=== PATIENT | female | born 1940 | race Caucasian/White ===

== ENCOUNTER → 2017-10-24 10:50 | Outpatient (CLI) | payer MEDICARE, OTHER, SELFPAY ==
--- NOTE | 2017-10-24 14:40 | VDLE_ITS ---
Reason For Study: LEG SWELLING RIGHT LEFT GSV is normal. GSV is normal. CFV is compressible, spontaneous, phasic, CFV is compressible, spontaneous, phasic, competent and demonstrates normal competent, and demonstrates normal augmentation. augmentation. FV is compressible, spontaneous, phasic, FV is compressible, spontaneous, phasic, competent and demonstrates normal competent and demonstrates normal augmentation. augmentation. POP V is compressible, spontaneous, phasic, POP V is compressible, spontaneous, phasic, competent and demonstrates normal competent and demonstrates normal augmentation. augmentation. T/P Trunk is compressible. T/P Trunk is compressible. PTV is compressible. PTV is compressible. RT PerV is compressible. LT PerV is compressible. Procedure Exam performed in department. A preliminary report was called and/or faxed to Dr. Kaba. Interpretation Summary Deep veins of the lower extremities are bilaterally patent and compressible segmentally. There is no evidence of deep vein thrombosis on either side. Valvular competence appears intact within the proximal deep venous systems bilaterally. The greater saphenous veins appear bilaterally patent and compressible segmentally. Ordering Physician: Adebayo Kaba Referring Physician: Adebayo Kaba Chi Performed By: Lilliana Stoo RVT
[2017-10-24 15:47] LABS: Absolute Lymphocyte Count 1.79 X10^3/ul (0.83-4.51); Absolute Neutrophil Count 4.4 X10^3/uL (2.0-7.7); Basophil# 0.01 X10^3/uL; Basophil% 0.1 % (0-1); Eosinophil# 0.16 X10^3/uL; Eosinophils% 2.4 % (0-5); Hematocrit 40.9 % (37-47); Hemoglobin 13.3 g/dl (12.0-15.0); Lymphocyte # 1.79 X10^3/ul (4.0); Lymphocyte % 26.6 % (19-41); Mean Corp Hgb Conc 32.5 g/gl (32-36); Mean Corpuscular Hgb 28.2 pg (27.0-32.0); Mean Corpuscular Volume 86.8 fL (81-99); Mean Platelet Vol. 9.3 fl (6.2-12.0); Monocyte# 0.38 X10^3/uL; Monocyte% 5.6 % (0-10); Neutrophil % 65.3 % (47-70); Platelet Count 260 K/mm3 (150-450); RBC Distribution Width CV 13.8 % (11.6-14.6); RBC Distribution Width SD 43.8 fl (35.1-43.9); Red Blood Count 4.71 M/mm3 (4.2-5.4); White Blood Count 6.7 K/mm3 (4.4-11.0)
[2017-10-24 15:49] LABS: POSITIVE COUNT NO; POSITIVE DIFFERENTIAL NO; POSITIVE MORPHOLOGY NO
[2017-10-24 16:19] LABS: Vitamin D,25 Hydroxy 33.4 ng/mL (29.95-100.01)
[2017-10-24 16:29] LABS: ALB/GLOB Ratio 0.9 RATIO (0.9-2.4); AST(SGOT) 24 U/L (15-37); Alanine Aminotransfer ALT/SGPT 29 U/L (13-56); Albumin, Serum 3.4 g/dL (3.2-5.0); Alkaline Phosphatase 130 U/L (45-117); Anion Gap 5 (5-15); BUN 19 mg/dL (7-18); BUN/Creat Ratio 24.5 RATIO (10-20); Chloride 106 mmol/L (98-107); Creatinine, Serum 0.78 mg/dL (0.55-1.02); EST Glomerular Filtration Rate 77 mL/min (>60); Est Glom Filt Rate - Afr Amer 93 mL/min (>60); Globulin 3.7 g/dL (2.2-4.2); Glucose 92 mg/dL (74-106); Potassium 4.5 mmol/L (3.5-5.1); Protein, Total 7.1 g/dL (6.4-8.2); Sodium Level 141 mmol/L (136-145); Thyroid Stim Hormone (TSH) 1.52 uIU/mL (0.358-3.74)
== END ==
PROVIDERS: Family Provider Family Medicine Geriatric Medicine; PCP Family Medicine Geriatric Medicine; Visit Provider Family Medicine Geriatric Medicine
DX: I10 Essential (primary) hypertension (principal); R60.0 Localized edema; E55.9 Vitamin D deficiency, unspecified
CPT/HCPCS: 36415; 80053; 82306; 84443; 85025; 93970

== ENCOUNTER → 2018-04-29 13:08 | Outpatient (CLI) | payer MEDICARE, OTHER, SELFPAY ==
[2018-04-29 14:32] LABS: Absolute Lymphocyte Count 1.65 X10^3/ul (0.83-4.51); Absolute Neutrophil Count 3.4 X10^3/uL (2.0-7.7); Basophil# 0.01 X10^3/uL; Basophil% 0.2 % (0-1); Eosinophil# 0.28 X10^3/uL; Eosinophils% 4.7 % (0-5); Hematocrit 39.6 % (37-47); Hemoglobin 12.7 g/dl (12.0-15.0); Lymphocyte # 1.65 X10^3/ul (4.0); Mean Corp Hgb Conc 32.1 g/gl (32-36); Mean Corpuscular Hgb 28.2 pg (27.0-32.0); Mean Platelet Vol. 9.2 fl (6.2-12.0); Monocyte# 0.57 X10^3/uL; Monocyte% 9.7 % (0-10); Neutrophil # 3.38 X10^3/uL (2.7-7.7); Neutrophil % 57.2 % (47-70); Platelet Count 245 K/mm3 (150-450); RBC Distribution Width CV 13.9 % (11.6-14.6); RBC Distribution Width SD 44.9 fl (35.1-43.9); White Blood Count 5.9 K/mm3 (4.4-11.0)
[2018-04-29 14:37] LABS: POSITIVE COUNT NO; POSITIVE DIFFERENTIAL NO; POSITIVE MORPHOLOGY NO
[2018-04-29 14:47] LABS: Vitamin D,25 Hydroxy 27.9 ng/mL (29.95-100.01)
[2018-04-29 14:50] LABS: ALB/GLOB Ratio 0.8 RATIO (0.9-2.4); AST(SGOT) 21 U/L (15-37); Alanine Aminotransfer ALT/SGPT 23 U/L (13-56); Albumin, Serum 3.3 g/dL (3.2-5.0); Alkaline Phosphatase 142 U/L (45-117); Anion Gap 5 (5-15); BUN 17 mg/dL (7-18); BUN/Creat Ratio 22.8 RATIO (10-20); Calcium,Total 9.2 mg/dL (8.5-10.1); Chloride 103 mmol/L (98-107); Creatinine, Serum 0.74 mg/dL (0.55-1.02); EST Glomerular Filtration Rate 81 mL/min (>60); Est Glom Filt Rate - Afr Amer 97 mL/min (>60); Glucose 88 mg/dL (74-106); Potassium 4.2 mmol/L (3.5-5.1); Protein, Total 7.3 g/dL (6.4-8.2); Sodium Level 138 mmol/L (136-145); Thyroid Stim Hormone (TSH) 2.52 uIU/mL (0.358-3.74)
== END ==
PROVIDERS: Family Provider Family Medicine Geriatric Medicine; PCP Family Medicine Geriatric Medicine; Visit Provider Family Medicine Geriatric Medicine
DX: I10 Essential (primary) hypertension (principal); E55.9 Vitamin D deficiency, unspecified
CPT/HCPCS: 36415; 80053; 82306; 84443; 85025

== ENCOUNTER → 2018-05-02 14:11 | Outpatient (CLI) | payer MEDICARE, OTHER, SELFPAY ==
--- NOTE | 2018-05-02 14:15 | CT_ITS ---
STUDY: CT CHEST WITH CONTRAST REASON FOR EXAM: Female, 77 years old. History of a lung cancer and prior resection. RADIATION DOSAGE (If Supplied By Facility): CTDIvol = ( 13.91 ) mGy, DLP = ( 485.67 ) mGycm TECHNIQUE: Transaxial imaging was performed following intravenous administration of 100 ml of Isovue 370 contrast material. Multiplanar coronal and sagittal images were reformatted. Individualized dose optimization techniques were used for this CT. COMPARISON: Comparison is made with prior study dated April 20, 2014. FINDINGS: Small bilateral axillary lymph nodes. There is elevation of the right hemidiaphragm with mild loss in the right hemithorax most likely secondary to prior resection. Emphysematous changes are seen in both upper lobes. Mild increased markings seen at the lung bases most likely secondary to mild scarring. The previously seen lobulated mass in the posterior right upper lobe has been resected. There is no demonstrated pleural abnormality. There are calcifications of the coronary arteries. Normal mediastinum. Normal hilar regions. Normal enhanced pulmonary arteries. Normal aorta arch and descending thoracic aorta. There are degenerative changes of the thoracic spine. 1.6 cm cyst in the lateral midportion of the left kidney. CT/Chest WITH Contrast IMPRESSION: Status post right upper lobectomy with resection of the right pulmonary nodule. Emphysematous changes. Mild basilar scarring. Electronically Signed: Izaiah Bush MD at 14:36 EST Tel [phone], Service support ,
== END ==
PROVIDERS: Family Provider Family Medicine Geriatric Medicine; PCP Family Medicine Geriatric Medicine; Referring Provider Family Medicine Geriatric Medicine; Visit Provider Family Medicine Geriatric Medicine
DX: R22.2 Localized swelling, mass and lump, trunk (principal)
CPT/HCPCS: 71260; Q9967

== ENCOUNTER → 2018-10-29 | Outpatient (CLI) | payer MEDICARE, OTHER, SELFPAY ==
[2017-07-21 13:04] VITALS: BMI 32.1
[2018-10-29 17:29] LABS: Absolute Lymphocyte Count 1.39 X10^3/ul (0.83-4.51); Absolute Neutrophil Count 3.9 X10^3/uL (2.0-7.7); Basophil# 0.01 X10^3/uL; Basophil% 0.2 % (0-1); Eosinophil# 0.17 X10^3/uL; Eosinophils% 2.8 % (0-5); Hematocrit 38.9 % (37-47); Hemoglobin 12.7 g/dl (12.0-15.0); Lymphocyte # 1.39 X10^3/ul (4.0); Mean Corp Hgb Conc 32.6 g/gl (32-36); Mean Corpuscular Hgb 28.3 pg (27.0-32.0); Mean Corpuscular Volume 86.8 fL (81-99); Mean Platelet Vol. 9.7 fl (6.2-12.0); Monocyte# 0.56 X10^3/uL; Monocyte% 9.3 % (0-10); Neutrophil # 3.91 X10^3/uL (2.7-7.7); Neutrophil % 64.7 % (47-70); Platelet Count 242 K/mm3 (150-450); RBC Distribution Width CV 13.8 % (11.6-14.6); Red Blood Count 4.48 M/mm3 (4.2-5.4)
[2018-10-29 17:31] LABS: POSITIVE COUNT NO; POSITIVE DIFFERENTIAL NO; POSITIVE MORPHOLOGY NO
[2018-10-29 17:54] LABS: Vitamin D,25 Hydroxy 22.8 ng/mL (29.95-100.01)
[2018-10-29 18:31] LABS: ALB/GLOB Ratio 0.9 RATIO (0.9-2.4); AST(SGOT) 24 U/L (15-37); Alanine Aminotransfer ALT/SGPT 28 U/L (13-56); Albumin, Serum 3.3 g/dL (3.2-5.0); Alkaline Phosphatase 124 U/L (45-117); Anion Gap 6 (5-15); BUN 16 mg/dL (7-18); BUN/Creat Ratio 21.5 RATIO (10-20); Calcium,Total 8.6 mg/dL (8.5-10.1); Chloride 105 mmol/L (98-107); Creatinine, Serum 0.74 mg/dL (0.55-1.02); EST Glomerular Filtration Rate 80 mL/min (>60); Est Glom Filt Rate - Afr Amer 97 mL/min (>60); Globulin 3.6 g/dL (2.2-4.2); Glucose 89 mg/dL (74-106); Potassium 4.1 mmol/L (3.5-5.1); Protein, Total 6.9 g/dL (6.4-8.2); Sodium Level 140 mmol/L (136-145); Thyroid Stim Hormone (TSH) 1.93 uIU/mL (0.358-3.74)
== END | disposition home or self-care (01) ==
LOC: POLAB3 15:04
PROVIDERS: Family Provider Family Medicine Geriatric Medicine; PCP Family Medicine Geriatric Medicine; Visit Provider Family Medicine Geriatric Medicine
DX: I10 Essential (primary) hypertension (principal); E55.9 Vitamin D deficiency, unspecified
CPT/HCPCS: 36415; 80053; 82306; 84443; 85025

== ENCOUNTER → 2019-05-05 | Outpatient (CLI) | payer MEDICARE, OTHER, SELFPAY ==
[2017-07-21 13:04] VITALS: BMI 32.1
--- NOTE | 2019-05-05 15:22 | RAD_ITS ---
STUDY: X-RAY - LUMBAR SPINE REASON FOR EXAM: Female, 78 years old. Low back pain. TECHNIQUE: 2 view(s) of the lumbar spine were obtained. COMPARISON: None FINDINGS: There is a slightly exaggerated lumbar lordosis. There is mild kyphosis at thoracolumbar junction. There is scoliosis of thoracolumbar spine, convexity to the right. There is a normal alignment of the vertebrae. There is diffuse demineralization with multi-level endplate spondylosis. There is multi-level degenerative disc disease with multi-level disc space narrowing. There is severe compression fracture of T12. There is mild compression fracture of L3 and L4. There is multilevel bilateral facet hypertrophy. There is atherosclerotic calcification of the abdominal aorta without a demonstrated aneurysm. RAD/Lumbar Spine 2 or 3 Views IMPRESSION: Diffuse osteopenia along with multilevel spondylosis/degenerative disease. Several compression fractures as described above. Electronically Signed: Colleen Martin MD at 2:27 EST , Service support ,
== END | disposition home or self-care (01) ==
LOC: RAD 15:17
PROVIDERS: Family Provider Family Medicine Geriatric Medicine; PCP Family Medicine Geriatric Medicine; Referring Provider Anesthesiology Pain Medicine; Visit Provider Anesthesiology Pain Medicine
DX: M54.5 Low back pain (principal)
CPT/HCPCS: 72100

== ENCOUNTER → 2019-05-08 | Outpatient (CLI) | payer MEDICARE, OTHER, SELFPAY ==
[2017-07-21 13:04] VITALS: BMI 32.1
[2019-05-08 12:37] LABS: ALB/GLOB Ratio 0.8 RATIO (0.9-2.4); AST(SGOT) 18 U/L (15-37); Alanine Aminotransfer ALT/SGPT 22 U/L (13-56); Albumin, Serum 3.2 g/dL (3.2-5.0); Alkaline Phosphatase 138 U/L (45-117); Anion Gap 6 (5-15); BUN 12 mg/dL (7-18); BUN/Creat Ratio 15.3 RATIO (10-20); Calcium,Total 8.8 mg/dL (8.5-10.1); Chloride 105 mmol/L (98-107); Creatinine, Serum 0.78 mg/dL (0.55-1.02); EST Glomerular Filtration Rate 76 mL/min (>60); Est Glom Filt Rate - Afr Amer 92 mL/min (>60); Globulin 4.1 g/dL (2.2-4.2); Glucose 106 mg/dL (74-106); Potassium 3.9 mmol/L (3.5-5.1); Protein, Total 7.3 g/dL (6.4-8.2); Sodium Level 142 mmol/L (136-145); Thyroid Stim Hormone (TSH) 2.31 uIU/mL (0.358-3.74)
[2019-05-08 12:39] LABS: Absolute Lymphocyte Count 1.54 X10^3/uL (0.83-4.51); Absolute Neutrophil Count 4.3 X10^3/uL (2.0-7.7); Basophil# 0.04 X10^3/uL; Basophil% 0.6 % (0-1); Eosinophil# 0.47 X10^3/uL; Eosinophils% 6.8 % (0-5); Hematocrit 40.9 % (37-47); Hemoglobin 13.3 g/dL (12.0-15.0); Lymphocyte # 1.54 X10^3/ul (4.0); Lymphocyte % 22.3 % (19-41); Mean Corp Hgb Conc 32.5 g/dL (32-36); Mean Corpuscular Hgb 28.8 pg (27.0-32.0); Mean Corpuscular Volume 88.5 fL (81-99); Mean Platelet Vol. 9.3 fl (6.2-12.0); Monocyte# 0.51 X10^3/uL; Monocyte% 7.4 % (0-10); NRBC Flagged by Analyzer 0 % (0-5); Neutrophil # 4.32 X10^3/uL (2.7-7.7); Neutrophil % 62.6 % (47-70); Platelet Count 275 K/mm3 (150-450); RBC Distribution Width CV 13.3 % (11.6-14.6); RBC Distribution Width SD 43.5 fl (35.1-43.9); Red Blood Count 4.62 M/mm3 (4.2-5.4); Vitamin D,25 Hydroxy 37.5 ng/mL (29.95-100.01); White Blood Count 6.9 K/mm3 (4.4-11.0)
== END | disposition home or self-care (01) ==
LOC: POLAB3 11:27
PROVIDERS: Family Provider Family Medicine Geriatric Medicine; PCP Family Medicine Geriatric Medicine; Visit Provider Family Medicine Geriatric Medicine
DX: E55.9 Vitamin D deficiency, unspecified (principal); I10 Essential (primary) hypertension
CPT/HCPCS: 36415; 80053; 82306; 84443; 85025

== ENCOUNTER 2019-08-20 10:00 | Outpatient (RCR) | payer MEDICARE, OTHER, SELFPAY ==
[2019-08-13 09:38] VITALS: BP 107/40; PULSE 78; RESP 22; TEMP 36.8; BMI 31.4
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
[2019-08-20 10:21] VITALS: BP 117/47; PULSE 61; RESP 16; TEMP 37.2; BMI 31.4
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
== END 2019-08-23 23:59 ==
LOC: WC 10:00
PROVIDERS: PCP Family Medicine Geriatric Medicine; Referring Provider Nurse Practitioner; Visit Provider Nurse Practitioner
DX: T81.31XA Disruption of external operation (surgical) wound, not elsewhere classified, initial encounter (principal); Y83.8 Other surgical procedures as the cause of abnormal reaction of the patient, or of later complication, without mention of misadventure at the time of the procedure; R60.0 Localized edema; L03.116 Cellulitis of left lower limb; I25.2 Old myocardial infarction; Z85.118 Personal history of other malignant neoplasm of bronchus and lung; I10 Essential (primary) hypertension; E78.5 Hyperlipidemia, unspecified; Z79.899 Other long term (current) drug therapy; Z87.891 Personal history of nicotine dependence
CPT/HCPCS: 11042; 11045; 87070; 87075; 87077; 87186; 87205; 99213; G0463

== ENCOUNTER 2019-09-19 11:00 | Outpatient (RCR) | payer MEDICARE, OTHER, SELFPAY ==
[2019-08-24 01:09] VITALS: BP 117/47; PULSE 61; RESP 16; TEMP 37.2
[2019-08-27 10:33] VITALS: BP 131/70; PULSE 77; RESP 16; TEMP 37.4; BMI 31.4
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
[2019-09-03 10:59] VITALS: BP 136/90; PULSE 88; RESP 16; TEMP 36.7; BMI 31.4
[2019-09-10 09:36] VITALS: BP 168/64; PULSE 64; RESP 18; TEMP 36.9; BMI 31.4
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
[2019-09-12 09:22] VITALS: BP 135/59; PULSE 66; RESP 16; TEMP 37.1; BMI 31.4
[2019-09-17 10:45] VITALS: BP 137/53; PULSE 68; RESP 18; TEMP 36.8; BMI 31.4
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
[2019-09-19 11:15] VITALS: BP 105/57; PULSE 91; RESP 16; TEMP 37; BMI 31.4
== END 2019-09-23 23:59 ==
LOC: WC 11:00
PROVIDERS: PCP Family Medicine Geriatric Medicine; Referring Provider Nurse Practitioner; Visit Provider Nurse Practitioner
DX: T81.31XA Disruption of external operation (surgical) wound, not elsewhere classified, initial encounter (principal); S81.812A Laceration without foreign body, left lower leg, initial encounter; Y83.8 Other surgical procedures as the cause of abnormal reaction of the patient, or of later complication, without mention of misadventure at the time of the procedure; R60.0 Localized edema; L08.9 Local infection of the skin and subcutaneous tissue, unspecified; W22.8XXA Striking against or struck by other objects, initial encounter; L03.116 Cellulitis of left lower limb
CPT/HCPCS: 11042; 11045; 17250; 87070; 87075; 87205; 97607

== ENCOUNTER 2019-10-22 12:00 | Outpatient (RCR) | payer MEDICARE, OTHER, SELFPAY ==
[2019-09-24 00:52] VITALS: BP 105/57; PULSE 91; RESP 16; TEMP 37
[2019-10-01 11:06] VITALS: BP 140/71; PULSE 80; RESP 20; TEMP 36.6; BMI 31.4
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
[2019-10-03 11:58] VITALS: BP 125/72; PULSE 85; RESP 18; TEMP 35.7; BMI 31.4
[2019-10-08 11:51] VITALS: BP 135/61; PULSE 70; RESP 20; TEMP 36.7; O2SAT 91; BMI 31.4
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
[2019-10-10 11:23] VITALS: BP 115/51; PULSE 60; RESP 18; TEMP 36.8; BMI 31.4
[2019-10-15 12:21] VITALS: BP 134/41; PULSE 78; RESP 20; TEMP 36.4; BMI 31.4
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
[2019-10-22 12:08] VITALS: BMI 31.4
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
== END 2019-10-23 23:59 ==
LOC: WC 12:00
PROVIDERS: PCP Family Medicine Geriatric Medicine; Referring Provider Nurse Practitioner; Visit Provider Nurse Practitioner
DX: T81.31XA Disruption of external operation (surgical) wound, not elsewhere classified, initial encounter (principal); Y83.8 Other surgical procedures as the cause of abnormal reaction of the patient, or of later complication, without mention of misadventure at the time of the procedure; L03.116 Cellulitis of left lower limb; R60.0 Localized edema; S81.812A Laceration without foreign body, left lower leg, initial encounter; W22.8XXA Striking against or struck by other objects, initial encounter; Z79.899 Other long term (current) drug therapy
CPT/HCPCS: 11042; 11045; 17250; 97605; 97607; 99212; G0463

== ENCOUNTER → 2019-11-06 15:04 | Outpatient (CLI) | payer MEDICARE, OTHER, SELFPAY ==
[2019-11-05 10:16] VITALS: BMI 31.4
[2019-11-06 16:30] LABS: Absolute Neutrophil Count 4.1 X10^3/uL (2.0-7.7); Basophil# 0.03 X10^3/uL; Basophil% 0.5 % (0-1); Eosinophil# 0.19 X10^3/uL; Eosinophils% 2.9 % (0-5); Hematocrit 40.7 % (37-47); Hemoglobin 12.8 g/dL (12.0-15.0); Lymphocyte % 24.4 % (19-41); Mean Corp Hgb Conc 31.4 g/dL (32-36); Mean Corpuscular Hgb 28.2 pg (27.0-32.0); Mean Corpuscular Volume 89.6 fL (81-99); Mean Platelet Vol. 9.2 fl (6.2-12.0); Monocyte# 0.58 X10^3/uL; Monocyte% 8.9 % (0-10); NRBC Flagged by Analyzer 0 % (0-5); Neutrophil # 4.13 X10^3/uL (2.7-7.7); Platelet Count 261 K/mm3 (150-450); RBC Distribution Width CV 14.4 % (11.6-14.6); Red Blood Count 4.54 M/mm3 (4.2-5.4); White Blood Count 6.6 K/mm3 (4.4-11.0)
[2019-11-06 16:37] LABS: Vitamin D,25 Hydroxy 34.9 ng/mL
[2019-11-06 16:42] LABS: ALB/GLOB Ratio 0.9 RATIO (0.9-2.4); AST(SGOT) 19 U/L (15-37); Alanine Aminotransfer ALT/SGPT 22 U/L (13-56); Albumin, Serum 3.3 g/dL (3.2-5.0); Alkaline Phosphatase 117 U/L (45-117); Anion Gap 4 (5-15); BUN 14 mg/dL (7-18); BUN/Creat Ratio 17.8 RATIO (10-20); Chloride 107 mmol/L (98-107); Creatinine, Serum 0.79 mg/dL (0.55-1.02); EST Glomerular Filtration Rate 75 mL/min (>60); Est Glom Filt Rate - Afr Amer 91 mL/min (>60); Globulin 3.5 g/dL (2.2-4.2); Glucose 116 mg/dL (74-106); Potassium 3.9 mmol/L (3.5-5.1); Protein, Total 6.8 g/dL (6.4-8.2); Sodium Level 142 mmol/L (136-145); Thyroid Stim Hormone (TSH) 1.03 uIU/mL (0.358-3.74)
== END ==
PROVIDERS: PCP Family Medicine Geriatric Medicine; Visit Provider Family Medicine Geriatric Medicine
DX: E55.9 Vitamin D deficiency, unspecified (principal); I10 Essential (primary) hypertension
CPT/HCPCS: 36415; 80053; 82306; 84443; 85025

== ENCOUNTER 2019-11-12 09:00 | Outpatient (RCR) | payer MEDICARE, OTHER, SELFPAY ==
[2019-10-24 00:16] VITALS: BP 134/41; PULSE 78; RESP 20; TEMP 36.4; O2SAT 91
[2019-10-29 09:47] VITALS: BP 155/56; PULSE 80; RESP 18; TEMP 36.6; BMI 31.4
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
[2019-11-05 10:16] VITALS: BP 137/47; PULSE 70; RESP 18; TEMP 36.6; BMI 31.4
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
[2019-11-12 09:05] VITALS: BP 162/59; PULSE 76; RESP 16; TEMP 36.8; BMI 31.4
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
== END 2019-11-23 23:59 ==
LOC: WC 09:00
PROVIDERS: PCP Family Medicine Geriatric Medicine; Referring Provider Nurse Practitioner; Visit Provider Nurse Practitioner
DX: T81.31XA Disruption of external operation (surgical) wound, not elsewhere classified, initial encounter (principal); Y83.8 Other surgical procedures as the cause of abnormal reaction of the patient, or of later complication, without mention of misadventure at the time of the procedure; I89.0 Lymphedema, not elsewhere classified; L03.116 Cellulitis of left lower limb; R60.0 Localized edema; S81.812A Laceration without foreign body, left lower leg, initial encounter; W22.8XXA Striking against or struck by other objects, initial encounter; I99.9 Unspecified disorder of circulatory system; Z79.899 Other long term (current) drug therapy
CPT/HCPCS: 11042; 99213; G0463

== ENCOUNTER → 2019-11-25 15:26 | Outpatient (CLI) | payer MEDICARE, OTHER, SELFPAY ==
[2019-11-12 09:05] VITALS: BMI 31.4
== END ==
PROVIDERS: PCP Family Medicine Geriatric Medicine; Visit Provider Family Medicine Geriatric Medicine
DX: N39.0 Urinary tract infection, site not specified (principal)
CPT/HCPCS: 87086; 87088; 87186

== ENCOUNTER → 2020-05-10 14:16 | Outpatient (CLI) | payer MEDICARE, OTHER, SELFPAY ==
[2020-05-10 17:09] LABS: Absolute Lymphocyte Count 1.29 X10^3/uL (0.83-4.51); Absolute Neutrophil Count 4.8 X10^3/uL (2.0-7.7); Basophil# 0.03 X10^3/uL; Basophil% 0.4 % (0-1); Eosinophil# 0.16 X10^3/uL; Eosinophils% 2.4 % (0-5); Hemoglobin 13.4 g/dL (12.0-15.0); Lymphocyte # 1.29 X10^3/ul (4.0); Lymphocyte % 19.1 % (19-41); Mean Corp Hgb Conc 31.2 g/dL (32-36); Mean Corpuscular Hgb 27.9 pg (27.0-32.0); Mean Corpuscular Volume 89.4 fL (81-99); Mean Platelet Vol. 9.6 fl (6.2-12.0); Monocyte% 7.4 % (0-10); NRBC Flagged by Analyzer 0 % (0-5); Neutrophil # 4.76 X10^3/uL (2.7-7.7); Neutrophil % 70.6 % (47-70); Platelet Count 344 K/mm3 (150-450); RBC Distribution Width CV 13.3 % (11.6-14.6); RBC Distribution Width SD 43.8 fl (35.1-43.9); Red Blood Count 4.81 M/mm3 (4.2-5.4); White Blood Count 6.8 K/mm3 (4.4-11.0)
[2020-05-10 17:37] LABS: ALB/GLOB Ratio 0.8 RATIO (0.9-2.4); AST(SGOT) 18 U/L (15-37); Alanine Aminotransfer ALT/SGPT 23 U/L (13-56); Albumin, Serum 3.2 g/dL (3.2-5.0); Alkaline Phosphatase 161 U/L (45-117); Anion Gap 6 (5-15); BUN 11 mg/dL (7-18); BUN/Creat Ratio 14.6 RATIO (10-20); Chloride 104 mmol/L (98-107); Creatinine, Serum 0.75 mg/dL (0.55-1.02); EST Glomerular Filtration Rate 79 mL/min (>60); Est Glom Filt Rate - Afr Amer 96 mL/min (>60); Glucose 84 mg/dL (74-106); Protein, Total 7.2 g/dL (6.4-8.2); Sodium Level 140 mmol/L (136-145); Thyroid Stim Hormone (TSH) 1.42 uIU/mL (0.358-3.74)
== END ==
PROVIDERS: PCP Family Medicine Geriatric Medicine; Visit Provider Family Medicine Geriatric Medicine
DX: E55.9 Vitamin D deficiency, unspecified (principal); I10 Essential (primary) hypertension
CPT/HCPCS: 36415; 80053; 82306; 84443; 85025

== ENCOUNTER → 2020-08-02 15:25 | Outpatient (CLI) | payer MEDICARE, OTHER, SELFPAY | PROVIDERS: PCP Family Medicine Geriatric Medicine; Visit Provider Family Medicine Geriatric Medicine | DX: N39.0 Urinary tract infection, site not specified (principal) | CPT/HCPCS: 87077; 87086; 87088; 87186 ==

== ENCOUNTER → 2020-08-12 16:17 | Outpatient (CLI) | payer MEDICARE, OTHER, SELFPAY ==
[2020-08-12 17:51] LABS: Absolute Lymphocyte Count 1.56 X10^3/uL (0.83-4.51); Absolute Neutrophil Count 4.4 X10^3/uL (2.0-7.7); Basophil# 0.02 X10^3/uL; Basophil% 0.3 % (0-1); Eosinophil# 0.21 X10^3/uL; Eosinophils% 3.1 % (0-5); Hematocrit 35.4 % (37-47); Hemoglobin 10.9 g/dL (12.0-15.0); Lymphocyte # 1.56 X10^3/ul (4.0); Lymphocyte % 23.3 % (19-41); Mean Corp Hgb Conc 30.8 g/dL (32-36); Mean Corpuscular Hgb 27.7 pg (27.0-32.0); Mean Corpuscular Volume 89.8 fL (81-99); Mean Platelet Vol. 9.2 fl (6.2-12.0); Monocyte# 0.53 X10^3/uL; Monocyte% 7.9 % (0-10); NRBC Flagged by Analyzer 0 % (0-5); Neutrophil # 4.35 X10^3/uL (2.7-7.7); Neutrophil % 65.1 % (47-70); Platelet Count 206 K/mm3 (150-450); RBC Distribution Width CV 14.5 % (11.6-14.6); RBC Distribution Width SD 47.7 fl (35.1-43.9); Red Blood Count 3.94 M/mm3 (4.2-5.4); White Blood Count 6.7 K/mm3 (4.4-11.0)
[2020-08-12 18:22] LABS: ALB/GLOB Ratio 0.8 RATIO (0.9-2.4); AST(SGOT) 21 U/L (15-37); Alanine Aminotransfer ALT/SGPT 19 U/L (13-56); Albumin, Serum 2.6 g/dL (3.2-5.0); Alkaline Phosphatase 126 U/L (45-117); Anion Gap 4 (5-15); BUN 11 mg/dL (7-18); BUN/Creat Ratio 16.9 RATIO (10-20); Calcium,Total 7.8 mg/dL (8.5-10.1); Chloride 111 mmol/L (98-107); Creatinine, Serum 0.65 mg/dL (0.55-1.02); EST Glomerular Filtration Rate 93 mL/min (>60); Est Glom Filt Rate - Afr Amer 113 mL/min (>60); Globulin 3.1 g/dL (2.2-4.2); Glucose 110 mg/dL (74-106); Potassium 4.5 mmol/L (3.5-5.1); Protein, Total 5.7 g/dL (6.4-8.2); Sodium Level 145 mmol/L (136-145)
== END ==
PROVIDERS: PCP Family Medicine Geriatric Medicine; Visit Provider Family Medicine Geriatric Medicine
DX: R82.998 Other abnormal findings in urine (principal)
CPT/HCPCS: 36415; 80053; 85025; 87077; 87086; 87088; 87186

== ENCOUNTER → 2020-11-08 13:25 | Outpatient (CLI) | payer MEDICARE, OTHER, SELFPAY ==
[2020-11-08 16:46] LABS: Absolute Lymphocyte Count 1.47 X10^3/uL (0.83-4.51); Absolute Neutrophil Count 4.5 X10^3/uL (2.0-7.7); Basophil# 0.02 X10^3/uL; Basophil% 0.3 % (0-1); Eosinophil# 0.13 X10^3/uL; Eosinophils% 1.9 % (0-5); Hematocrit 39.9 % (37-47); Hemoglobin 12.8 g/dL (12.0-15.0); Lymphocyte # 1.47 X10^3/ul (0.83-4.51); Lymphocyte % 21.9 % (19-41); Mean Corp Hgb Conc 32.1 g/dL (32-36); Mean Corpuscular Hgb 27.5 pg (27.0-32.0); Mean Corpuscular Volume 85.6 fL (81-99); Mean Platelet Vol. 9.7 fl (6.2-12.0); Monocyte# 0.55 X10^3/uL; Monocyte% 8.2 % (0-10); NRBC Flagged by Analyzer 0 % (0-5); Neutrophil # 4.51 X10^3/uL (2.7-7.7); Neutrophil % 67.3 % (47-70); Platelet Count 247 K/mm3 (150-450); RBC Distribution Width CV 14.4 % (11.6-14.6); RBC Distribution Width SD 44.6 fl (35.1-43.9); Red Blood Count 4.66 M/mm3 (4.2-5.4); White Blood Count 6.7 K/mm3 (4.4-11.0)
[2020-11-08 17:18] LABS: ALB/GLOB Ratio 0.9 RATIO (0.9-2.4); AST(SGOT) 31 U/L (15-37); Alanine Aminotransfer ALT/SGPT 29 U/L (13-56); Albumin, Serum 3.2 g/dL (3.2-5.0); Alkaline Phosphatase 144 U/L (45-117); Anion Gap 4 (5-15); BUN 9 mg/dL (7-18); BUN/Creat Ratio 12.4 RATIO (10-20); Calcium,Total 8.4 mg/dL (8.5-10.1); Chloride 109 mmol/L (98-107); Creatinine, Serum 0.72 mg/dL (0.55-1.02); EST Glomerular Filtration Rate 83 mL/min (>60); Est Glom Filt Rate - Afr Amer 100 mL/min (>60); Globulin 3.5 g/dL (2.2-4.2); Glucose 89 mg/dL (74-106); Potassium 3.6 mmol/L (3.5-5.1); Protein, Total 6.7 g/dL (6.4-8.2); Sodium Level 142 mmol/L (136-145); Thyroid Stim Hormone (TSH) 1.83 uIU/mL (0.358-3.74)
== END ==
PROVIDERS: PCP Family Medicine Geriatric Medicine; Visit Provider Family Medicine Geriatric Medicine
DX: I10 Essential (primary) hypertension (principal); E55.9 Vitamin D deficiency, unspecified
CPT/HCPCS: 36415; 80053; 82306; 84443; 85025

== ENCOUNTER → 2021-04-01 13:17 | Outpatient (CLI) | payer MEDICARE, OTHER, SELFPAY | PROVIDERS: PCP Family Medicine Geriatric Medicine; Referring Provider Family Medicine Geriatric Medicine; Visit Provider Family Medicine Geriatric Medicine | DX: N39.0 Urinary tract infection, site not specified (principal) | CPT/HCPCS: 87077; 87086; 87088; 87186 ==

== ENCOUNTER → 2021-05-11 14:14 | Outpatient (CLI) | payer MEDICARE, OTHER, SELFPAY ==
[2021-05-11 17:14] LABS: Absolute Lymphocyte Count 1.57 X10^3/uL (0.83-4.51); Absolute Neutrophil Count 3.6 X10^3/uL (2.0-7.7); Basophil# 0.03 X10^3/uL; Basophil% 0.5 % (0-1); Eosinophil# 0.28 X10^3/uL; Eosinophils% 4.6 % (0-5); Hematocrit 41.8 % (37-47); Hemoglobin 13.2 g/dL (12.0-15.0); Lymphocyte # 1.57 X10^3/ul (0.83-4.51); Mean Corp Hgb Conc 31.6 g/dL (32-36); Mean Corpuscular Volume 88.6 fL (81-99); Mean Platelet Vol. 9.4 fl (6.2-12.0); Monocyte# 0.53 X10^3/uL; Monocyte% 8.8 % (0-10); NRBC Flagged by Analyzer 0 % (0-5); Neutrophil % 59.8 % (47-70); Platelet Count 306 K/mm3 (150-450); RBC Distribution Width SD 45.2 fl (35.1-43.9); Red Blood Count 4.72 M/mm3 (4.2-5.4)
[2021-05-11 17:56] LABS: ALB/GLOB Ratio 0.7 RATIO (0.9-2.4); AST(SGOT) 16 U/L (15-37); Alanine Aminotransfer ALT/SGPT 20 U/L (13-56); Albumin, Serum 2.9 g/dL (3.2-5.0); Alkaline Phosphatase 129 U/L (45-117); Anion Gap 2 (5-15); BUN 13 mg/dL (7-18); BUN/Creat Ratio 17.6 RATIO (10-20); Chloride 107 mmol/L (98-107); Creatinine, Serum 0.74 mg/dL (0.55-1.02); EST Glomerular Filtration Rate 81 mL/min (>60); Est Glom Filt Rate - Afr Amer 98 mL/min (>60); Globulin 4.3 g/dL (2.2-4.2); Glucose 73 mg/dL (74-106); Potassium 4.1 mmol/L (3.5-5.1); Protein, Total 7.2 g/dL (6.4-8.2); Sodium Level 141 mmol/L (136-145)
[2021-05-11 18:12] LABS: Vitamin D,25 Hydroxy 28.9 ng/mL
== END ==
PROVIDERS: PCP Family Medicine Geriatric Medicine; Visit Provider Family Medicine Geriatric Medicine
DX: E55.9 Vitamin D deficiency, unspecified (principal); I10 Essential (primary) hypertension
CPT/HCPCS: 36415; 80053; 82306; 84443; 85025

== ENCOUNTER → 2021-11-09 | Outpatient (CLI) | payer MEDICARE, OTHER, SELFPAY ==
[2021-11-09 17:18] LABS: Absolute Lymphocyte Count 1.57 X10^3/uL (0.83-4.51); Absolute Neutrophil Count 7.3 X10^3/uL (2.0-7.7); Basophil# 0.02 X10^3/uL; Basophil% 0.2 % (0-1); Eosinophil# 0.22 X10^3/uL; Eosinophils% 2.2 % (0-5); Hematocrit 43.2 % (37-47); Hemoglobin 13.8 g/dL (12.0-15.0); Lymphocyte # 1.57 X10^3/ul (0.83-4.51); Lymphocyte % 15.8 % (19-41); Mean Corp Hgb Conc 31.9 g/dL (32-36); Mean Corpuscular Hgb 28.5 pg (27.0-32.0); Mean Corpuscular Volume 89.1 fL (81-99); Monocyte# 0.75 X10^3/uL; Monocyte% 7.6 % (0-10); NRBC Flagged by Analyzer 0 % (0-5); Neutrophil # 7.32 X10^3/uL (2.7-7.7); Neutrophil % 73.9 % (47-70); Platelet Count 245 K/mm3 (150-450); RBC Distribution Width CV 14.1 % (11.6-14.6); RBC Distribution Width SD 45.5 fl (35.1-43.9); Red Blood Count 4.85 M/mm3 (4.2-5.4); White Blood Count 9.9 K/mm3 (4.4-11.0)
[2021-11-09 17:49] LABS: ALB/GLOB Ratio 0.8 RATIO (0.9-2.4); AST(SGOT) 17 U/L (15-37); Alanine Aminotransfer ALT/SGPT 21 U/L (13-56); Albumin, Serum 3.1 g/dL (3.2-5.0); Alkaline Phosphatase 115 U/L (45-117); Anion Gap 2 (5-15); BUN 18 mg/dL (7-18); BUN/Creat Ratio 20.5 RATIO (10-20); Calcium,Total 9.1 mg/dL (8.5-10.1); Chloride 107 mmol/L (98-107); Creatinine, Serum 0.88 mg/dL (0.55-1.02); EST Glomerular Filtration Rate 66 mL/min (>60); Est Glom Filt Rate - Afr Amer 80 mL/min (>60); Glucose 90 mg/dL (74-106); Protein, Total 7.1 g/dL (6.4-8.2); Sodium Level 140 mmol/L (136-145); Thyroid Stim Hormone (TSH) 1.36 uIU/mL (0.358-3.74)
[2021-11-09 18:00] LABS: Vitamin D,25 Hydroxy 23.2 ng/mL
== END | disposition home or self-care (01) ==
LOC: POLAB3 12:58
PROVIDERS: PCP Family Medicine Geriatric Medicine; Visit Provider Family Medicine Geriatric Medicine
DX: I10 Essential (primary) hypertension (principal); E55.9 Vitamin D deficiency, unspecified
CPT/HCPCS: 36415; 80053; 82306; 84443; 85025

== ENCOUNTER → 2022-05-16 | Outpatient (CLI) | payer MEDICARE, OTHER, SELFPAY ==
[2022-05-16 13:54] LABS: Absolute Lymphocyte Count 1.84 X10^3/uL (0.83-4.51); Absolute Neutrophil Count 4.5 X10^3/uL (2.0-7.7); Basophil# 0.02 X10^3/uL; Basophil% 0.3 % (0-1); Eosinophil# 0.34 X10^3/uL; Eosinophils% 4.6 % (0-5); Hematocrit 43.4 % (37-47); Hemoglobin 14.7 g/dL (12.0-15.0); Lymphocyte # 1.84 X10^3/ul (0.83-4.51); Mean Corp Hgb Conc 33.9 g/dL (32-36); Mean Corpuscular Hgb 29.6 pg (27.0-32.0); Mean Corpuscular Volume 87.3 fL (81-99); Mean Platelet Vol. 9.2 fl (6.2-12.0); Monocyte# 0.62 X10^3/uL; Monocyte% 8.4 % (0-10); NRBC Flagged by Analyzer 0 % (0-5); Neutrophil # 4.51 X10^3/uL (2.7-7.7); Neutrophil % 61.3 % (47-70); Platelet Count 264 K/mm3 (150-450); RBC Distribution Width CV 13.6 % (11.6-14.6); RBC Distribution Width SD 43.6 fl (35.1-43.9); Red Blood Count 4.97 M/mm3 (4.2-5.4); White Blood Count 7.4 K/mm3 (4.4-11.0)
[2022-05-16 14:57] LABS: Vitamin D,25 Hydroxy 35.3 ng/mL
[2022-05-16 15:06] LABS: ALB/GLOB Ratio 0.8 RATIO (0.9-2.4); AST(SGOT) 36 U/L (15-37); Alanine Aminotransfer ALT/SGPT 42 U/L (13-56); Albumin, Serum 3.2 g/dL (3.2-5.0); Alkaline Phosphatase 171 U/L (45-117); Anion Gap 5 (5-15); BUN 18 mg/dL (7-18); BUN/Creat Ratio 21.6 RATIO (10-20); Calcium,Total 8.8 mg/dL (8.5-10.1); Chloride 105 mmol/L (98-107); Creatinine, Serum 0.83 mg/dL (0.55-1.02); EST Glomerular Filtration Rate 70 mL/min (>60); Est Glom Filt Rate - Afr Amer 84 mL/min (>60); Globulin 4.1 g/dL (2.2-4.2); Glucose 103 mg/dL (74-106); Potassium 3.7 mmol/L (3.5-5.1); Protein, Total 7.3 g/dL (6.4-8.2); Sodium Level 142 mmol/L (136-145); Thyroid Stim Hormone (TSH) 1.76 uIU/mL (0.358-3.74)
== END | disposition home or self-care (01) ==
LOC: POLAB3 13:31
PROVIDERS: PCP Family Medicine Geriatric Medicine; Visit Provider Family Medicine Geriatric Medicine
DX: E55.9 Vitamin D deficiency, unspecified (principal); I10 Essential (primary) hypertension
CPT/HCPCS: 36415; 80053; 82306; 84443; 85025

== ENCOUNTER → 2022-06-08 | Outpatient (CLI) | payer MEDICARE, OTHER, SELFPAY ==
--- NOTE | 2022-06-08 11:38 | US_ITS ---
STUDY: ULTRASOUND OF THE FEMALE PELVIS - COMPLETE REASON FOR EXAM: Female, 81 years old. Uterine bleeding LMP: Patient is postmenopausal. TECHNIQUE: Transabdominal and Transvaginal TECHNICAL QUALITY: Adequate. COMPARISON: None. FINDINGS: There is evidence of prolapse of the uterus into the vagina. The right ovary is non-visualized. The left ovary is non-visualized. There is no fluid in the cul-de-sac. There is evidence of multiple bladder diverticula. US/Pelvic (Non ) IMPRESSION: Limited examination. Prolapse of the uterus within the vagina. Bladder diverticula. Electronically Signed: Izaiah Bush MD at 13:52 EST ,
--- NOTE | 2022-06-08 11:39 | CT_ITS ---
STUDY: CT ABDOMEN AND PELVIS WITH AND WITHOUT CONTRAST REASON FOR EXAM: Female, 81 years old. GROSS HEMATURIA RADIATION DOSAGE (If Supplied By Facility): CTDIvol = ( 17.91 ) mGy, DLP = ( 2575.53 ) mGycm TECHNIQUE: Transaxial images were obtained from the dome of the diaphragm to the symphysis pubis without oral contrast. IV 100mL Isovue-300 was administered. Sagittal and coronal images were reconstructed. Individualized dose optimization techniques were used for this CT. COMPARISON: None. FINDINGS: The visualized lung bases are unremarkable. The visualized portions of the heart are within normal limits. Normal liver. Normal gallbladder and extrahepatic biliary system. Normal spleen. Normal pancreas. Normal bilateral adrenal glands. Normal right kidney. 2.8 cm cyst in the lower pole of the left kidney. Incidental note is made of a retroaortic left renal vein. Normal visualized stomach. Normal small intestine. There are multiple colonic diverticula consistent with diverticulosis. The appendix is visualized and appears normal. There is diffuse atherosclerotic calcification of the abdominal aorta and its major visceral branches., without a demonstrated aneurysm. Normal inferior vena cava. Normal retroperitoneum. Distended urinary bladder. Multiple bilateral bladder diverticula. There is evidence of gallbladder wall thickening at the base of the bladder was the right side. There is prolapse of uterus into the vagina. Normal abdominal wall. There are diffuse degenerative changes of the visualized lumbar spine. Loss of height of the superior endplate of the L3 and L4 vertebrae. Almost complete collapse of the T12 vertebrae. CT/CT Abd/Pelvis W/WO Contrast IMPRESSION: Distended urinary bladder with evidence of multiple bladder diverticula. Diffuse bladder wall thickening at the base of the bladder was the right side. 2.8 cm cyst in the lower pole of the left kidney. Electronically Signed: Izaiah Bush MD at 15:10 EST ,
== END | disposition home or self-care (01) ==
PROVIDERS: PCP Family Medicine Geriatric Medicine; Referring Provider Urology; Visit Provider Urology
DX: R31.0 Gross hematuria (principal); N93.9 Abnormal uterine and vaginal bleeding, unspecified
CPT/HCPCS: 74178; 76856; Q9967

== ENCOUNTER → 2022-06-08 | Outpatient (CLI) | payer MEDICARE, OTHER, SELFPAY | END | disposition home or self-care (01) | LOC: CT 15:14 | PROVIDERS: PCP Family Medicine Geriatric Medicine; Referring Provider Urology; Visit Provider Urology | DX: R31.0 Gross hematuria (principal); N93.9 Abnormal uterine and vaginal bleeding, unspecified ==

== ENCOUNTER → 2022-06-14 | Outpatient (CLI) | payer MEDICARE, OTHER, SELFPAY ==
--- NOTE | 2022-06-14 11:00 | CYSPIN_PTH ---
PATIENT: IRIS PENNY [facility] U#:[id number] AGE/SX: 81/F ROOM: RE06/14/[address]: Dr. Ani Cummins MD : [id number] BED: DIS: 06/14/2022 SPEC #: [id number] RECD: 06/15/22 12:26 STATUS: DAVID RESudarshan #: [id number] STEFANO: 06/14/22 11:[address]: Ani Cummins DEPT: CYTOLOGY RECD BY: Krystin Preston ENTERED: 06/15/22 12:26 SP TYPE: CYSPIN FL OTHR DR: Dr. Adebayo Kaba MD Tissues: Urine Procedures: Pap Stain (control) Special Stain Group II Cytospin Fluid HEADER OPERATION: Not noted PRE-OP DIAGNOSIS: Gross hematuria TISSUE SUBMITTED: Urine for cytology DIAGNOSIS CYTOLOGY Urine for cytology (cytospin): Negative for high-grade urothelial carcinoma (NHGUC), [facility] System Category II. Acute inflammation. See comment. SJ:elizabeth 06/16/2022 COMMENT The specimen predominantly consists of squamous epithelial cells and numerous neutrophils. The [facility] System for urine cytology diagnostic categorization was used in the evaluation of this case. CYTOLOGY STUDY Slides are reviewed. CYTOLOGY GROSS Received is 25 ml of yellow cloudy fluid labeled with the patient's name and and designated per the requisition as urine. Submitted for cytology preparation. / elizabeth 06/15/2022 TC:2 CPT: 52595
[2022-06-14 18:00] LABS: Cytology, Body Fluid / CSF SEE PATHOLOGY REPORT
== END | disposition home or self-care (01) ==
PROVIDERS: PCP Family Medicine Geriatric Medicine; Visit Provider Urology
DX: R31.0 Gross hematuria (principal)
CPT/HCPCS: 88108; 88313

== ENCOUNTER → 2022-06-21 | Outpatient (CLI) | payer MEDICARE, OTHER, SELFPAY ==
[2022-06-30 10:48] VITALS: BP 153/60; PULSE 85; RESP 16; TEMP 36.9; O2SAT 86; BMI 27.3
[2022-06-30] MEDS: Lactated Ringers 1,000 ML 15 ML IV (10:56)
[2022-06-30 11:13] VITALS: PULSE 60; RESP 22
[2022-06-30] MEDS: Ipratropium/Albuterol Sulfate 3 ML AMPUL.NEB INHALATION (11:13)
--- NOTE | 2022-06-30 12:39 | SUR.PREOP ---
PATIENT O2 86% RA UPON ARRIVAL TO FOR CHECK IN FOR SURGERY. PLACED ON 2 NC, IMPROVED TO 95%. PATIENT APPEARS SOB WITH MINIMAL EXERTION. DR. THAKUR NOTIFIED. ORDERED DUONEB AND ASKED TO INFORM DR. GUNN. DR. BAI INFORMED AND SAW THE PATIENT, AGREED TO CANCEL THE CASE D/T HYPOXIA AND PATIENT TRANSFERRED TO ER. BELONGINGS AND DENTURES AND WITH PATIENT.
== END | disposition home or self-care (01) ==
LOC: PAT 07-10 13:20
PROVIDERS: PCP Family Medicine Geriatric Medicine; Referring Provider Urology; Visit Provider Urology
DX: Z00.00 Encounter for general adult medical examination without abnormal findings (principal)
CPT/HCPCS: 94640; J7120

== ENCOUNTER 2022-06-30 12:33 | Observation (INO) | payer MEDICARE, OTHER, SELFPAY ==
[2022-06-30] VITALS (18 sets, daily range): BP systolic 136–163; BP diastolic 48–73; PULSE 45–66; RESP 16–24; TEMP 36.2–36.9; O2SAT 92–100; BMI 27.3; BMI 29.0
--- NOTE | 2022-06-30 13:45 | EKG12_ITS ---
Test Reason : HYPOXIC Blood Pressure : / mmHG Vent. Rate : 055 BPM Atrial Rate : 055 BPM P-R Int : 194 ms QRS Dur : 136 ms QT Int : 472 ms P-R-T Axes : 047 -87 097 degrees QTc Int : 451 ms Sinus bradycardia Left axis deviation Non-specific intra-ventricular conduction block Minimal voltage criteria for LVH, may be normal variant ( [place] product ) Lateral infarct , age undetermined Abnormal ECG Confirmed by COLEEN HAMMER, KENNY ([id number]), television news video editor TERENCE PEARSON ([id number]) on 07/03/2022 10:58:53 AM Referred By: KARISHMA Confirmed By:SHARRI HORNE MD
--- NOTE | 2022-06-30 13:45 | RAD_ITS ---
STUDY: X-RAY CHEST REASON FOR EXAM: Female, 81 years old. Cough TECHNIQUE: Single AP portable view of the chest. COMPARISON: Comparison is made with prior study dated 04/27/2014. FINDINGS: EKG electrodes are seen. The previously seen right upper lobe nodule has been resected. There is elevation of the right hemidiaphragm with blunting of the right costophrenic angle in keeping with prior surgical intervention in the right hemithorax. There is moderate cardiac enlargement. Normal mediastinum and robby. Normal visualized pulmonary arteries. There is atherosclerotic calcification of the aortic arch with tortuosity. There are diffuse degenerative changes of the visualized thoracic spine. Mild degree of the liver scoliosis. Normal visualized ribs, clavicles, and shoulders. There is no demonstrated abnormality of the visualized soft tissue structures of the upper abdomen. RAD/Chest 1 View (Portable) IMPRESSION: Status post resection of the right upper lobe nodule with the elevation of the right hemidiaphragm and blunting of the right costophrenic angle. Electronically Signed: Izaiah Bush MD at 14:43 EST ,
--- NOTE | 2022-06-30 13:50 | ED.VIS.DYS ---
HPI History of Present Illness Chief Complaint: Shortness of Breath Informant: patient and spouse/S.O. Narrative Narrative: Sent over from preop area when she is getting prepped for procedure by Dr. Cummins. She states plan for biopsy. Patient history of COPD no home oxygen. Reported she looks short of breath and was hypoxic. She denies being short of breath. His chronic cough since the weather change in March. Remote tobacco quit in 1999. She had right upper lobe lung resection in 2014. No chemo or radiation. Denies chest or abdominal pain. Reported she is given aerosol treatment there and there is not much improvement. Reported hypoxic in the 70s. She states he is not short of breath. She is brought over 2 L nasal cannula. She was increased to 5 L at 1 point and back down to 2 L maintaining in the low 90s. No recent travel or surgeries. Reported history of right-sided pulmonary embolism 2020 was on Eliquis for a year. She was on oxygen however was able to get off of it. PE Risk Factors: Positive for Cancer and Prior DVT or PE; Negative for OCP + Smoking + > 35, Recent immobilization or Recent surgery Prior similar symptoms: No PFSH PFSH Medical History Anxiety Arthritis Back pain Cancer Cardiology follow-up encounter Depression Former smoker Heart disease Heartburn High cholesterol History of diverticulitis History of echocardiogram History of edema History of stress test Hypertension Loss of hearing Myocardial infarction Shortness of breath on exertion Wears glasses Wears partial dentures Home Medications metoprolol tartrate 50 mg tablet (Lopressor) 25 mg PO BID 04/27/14 [History Last Taken 04/26/14 23:30] atorvastatin 10 mg tablet 40 mg PO QDAY 07/21/17 [History Last Taken Unknown] aspirin 81 mg tablet,delayed release 81 mg PO DAILY 06/21/22 [History Last Taken Unknown] escitalopram oxalate 10 mg tablet (Lexapro) 10 mg PO DAILY 06/21/22 [History Last Taken Unknown] lisinopril 5 mg tablet 5 mg PO PRN PRN BP 06/21/22 [History Last Taken Unknown] Allergy/AdvReac Type Severity Reaction Status Date / Time No Known Allergies Allergy Unverified 06/30/22 12:36 Family History Mother Colon cancer Father Myocardial infarction Surgical History History of lobectomy of lung Hx of eye surgery Hx of right cataract extraction Lung cancer Social History Smoking Status: Former smoker alcohol intake: never ROS ROS ED Constitutional Constitutional ED: Denies chills, fever(s) or sweats Eyes Eyes: Denies change in vision ENT ENT ED: Denies dysphagia or sore throat Cardiovascular Cardiovascular: Denies chest pain, leg edema, palpitations or racing heartbeat Respiratory/Chest Respiratory/Chest: Reports cough; Denies dyspnea or dyspnea on exertion Gastrointestinal Gastrointestinal: Denies abdominal pain, diarrhea, nausea or vomiting Genitourinary Genitourinary ED: Denies dysuria, hematuria or urinary frequency Musculoskeletal Musculoskeletal: Denies back pain, extremity pain or neck pain Integumentary Denies rash or wounds Neurologic Neurologic: Denies headache(s), paresthesias or weakness EXAM Physical Exam Const Vital Signs: 06/30/22 12:34 06/30/22 12:36 06/30/22 13:30 Temperature 97.1 F L 97.6 F L Temperature Source Temporal Temporal Pulse Rate 62 59 L Respiratory Rate 18 22 H Respiratory Effort Normal Non-Labored Respiratory Depth Normal Respiratory Pattern Tachypnea Blood Pressure 163/61 H 143/57 H Blood Pressure Mean 95 85 Pulse Ox 100 97 Oxygen Delivery Method Nasal Cannula Nasal Cannula Nasal Cannula Oxygen Flow Rate (L/min) 2 5 5 06/30/22 13:36 06/30/22 13:40 06/30/22 13:45 Temperature 97.7 F L Temperature Source Temporal Pulse Rate 57 L Respiratory Rate 19 H Respiratory Effort Respiratory Depth Respiratory Pattern Blood Pressure 149/73 H Blood Pressure Mean 98 Pulse Ox 98 98 92 Oxygen Delivery Method Nasal Cannula Nasal Cannula Nasal Cannula Oxygen Flow Rate (L/min) 5 5 3 06/30/22 14:03 06/30/22 14:18 06/30/22 15:03 Temperature Temperature Source Pulse Rate 63 51 L Respiratory Rate 17 18 Respiratory Effort Respiratory Depth Respiratory Pattern Blood Pressure 140/55 H 146/68 H Blood Pressure Mean 83 94 Pulse Ox 93 97 96 Oxygen Delivery Method Nasal Cannula Nasal Cannula Oxygen Flow Rate (L/min) 3 3 06/30/22 14:36 06/30/22 15:36 Temperature 97.9 F 97.8 F Temperature Source Temporal Temporal Pulse Rate 55 L 49 L Respiratory Rate 22 H 23 H Respiratory Effort Respiratory Depth Respiratory Pattern Blood Pressure 146/68 H 138/53 H Blood Pressure Mean 94 81 Pulse Ox 95 94 Oxygen Delivery Method Nasal Cannula Nasal Cannula Oxygen Flow Rate (L/min) Positive well nourished and well developed Constitutional Narrative: Nasal cannula 2 L no respiratory distress. General Appearance ED: well developed and NAD HEENT Reports moist mucous membranes normocephalic and atraumatic Eyes PERRL, EOMs intact bilaterally and conjunctivae normal General Eye ED: Yes normal appearance of both eyes Neck no lymphadenopathy and supple General: Negative for tenderness Chest Wall Chest: Negative for tenderness Resp normal respiratory effort and normal air movement Effort and Inspection: symmetric chest movement; Negative for respiratory distress Cardio regular rate, regular rhythm and no murmurs Peripheral Pulses: pulses 2+ throughout GI normal to inspection, nondistended, normoactive bowel sounds and non-tender Palpation: Negative for guarding or rebound tenderness present Back/Spine no CVA tenderness and no thoracic nor lumbar tenderness Extremity normal to inspection General Extremety ED: Negative for edema or tenderness General Extremity: Negative for edema Neuro oriented x3 and no sensory deficits noted Sensorium / Orientation: awake and alert Skin no rashes or lesions noted and no wounds MDM MDM MDM Narrative Medical decision making narrative: Patient brought over with hypoxia clinically was not complaining any dyspnea. COPD no chronic oxygen. EKG sinus rhythm. She has no chest pains for concerns for ACS. COPD history of chronic cough. Chest x-ray 1 view interpreted by myself and read by radiology elevated right hemidiaphragm however no infiltrates. Post resection right upper lobe. Labs obtained and reviewed, normal white count of 6.2, creatinine 0.69 hemoglobin 13.9. Due to her hypoxia requiring continue 3 L oxygen, abnormal lung sounds, I obtain a CT of the chest to rule out evaluate for PE. However results did return positive right middle and upper branches interpreted myself and read by radiology. She is covered with Lovenox. 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 I did add ultrasound lower extremities which returned negative. I spoke with hospitalist Dr. Krystina Meredith for admission due to her hypoxia. She requested adding troponin level which is pending. She will be admitted to PCU. Patient and family updated. Lab Data Attestation: I reviewed the patient's lab results. Labs: Laboratory Results - last 24 hr 06/30/22 06/30/22 14:15 14:15 WBC 6.2 RBC 4.84 Hgb 13.9 Hct 43.2 MCV 89.3 MCH 28.7 MCHC 32.2 RDW Std Deviation 45.2 H RDW Coeff of Ozzie 13.9 Plt Count 229 MPV 9.4 Immature Gran % (Auto) 0.300 Neut % (Auto) 66.5 Lymph % (Auto) 22.2 Butts % (Auto) 7.9 Eos % (Auto) 2.8 Baso % (Auto) 0.3 Absolute Neuts (auto) 4.1 Absolute Lymphs (auto) 1.37 Nucleated RBC % 0 Sodium 142 Potassium 4.2 Chloride 107 Carbon Dioxide 33.0 H Anion Gap 2 L BUN 15 Creatinine 0.69 Estim Creat Clear Calc 37.12 Est GFR (MDRD) Af Amer 106 Est GFR (MDRD) Non-Af 87 BUN/Creatinine Ratio 21.8 H Glucose 94 Calcium 8.8 Radiography Diagnostic Testing: Clinical Impression(s) from Imaging Studies Chest X-Ray 06/30/22 13:45 IMPRESSION: Status post resection of the right upper lobe nodule with the elevation of the right hemidiaphragm and blunting of the right costophrenic angle. Electronically Signed: Izaiah Bush MD at 14:43 EST , Chest CTA 06/30/22 14:51 IMPRESSION: Pulmonary embolism and branches of the right upper and right interlobar pulmonary artery. Elevation of the right hemidiaphragm. Electronically Signed: Izaiah Bush MD at 15:39 EST , EKG Initial EKG: Attestation: I personally reviewed and interpreted this EKG as follows: Comments: Sinus rate of 55, no ST or T wave changes. Discharge Plan Dx/Rx/DC Orders Clinical Impression: Recurrent pulmonary emboli, Hypoxia, COPD (chronic obstructive pulmonary disease) Disposition Disposition: Acute Care Hospital [facility]
[2022-06-30 14:27] LABS: Absolute Lymphocyte Count 1.37 X10^3/uL (0.83-4.51); Absolute Neutrophil Count 4.1 X10^3/uL (2.0-7.7); Basophil# 0.02 X10^3/uL; Basophil% 0.3 % (0-1); Eosinophil# 0.17 X10^3/uL; Eosinophils% 2.8 % (0-5); Hematocrit 43.2 % (37-47); Hemoglobin 13.9 g/dL (12.0-15.0); Lymphocyte # 1.37 X10^3/ul (0.83-4.51); Lymphocyte % 22.2 % (19-41); Mean Corp Hgb Conc 32.2 g/dL (32-36); Mean Corpuscular Hgb 28.7 pg (27.0-32.0); Mean Corpuscular Volume 89.3 fL (81-99); Monocyte# 0.49 X10^3/uL; Monocyte% 7.9 % (0-10); NRBC Flagged by Analyzer 0 % (0-5); Neutrophil % 66.5 % (47-70); POSITIVE COUNT YES; RBC Distribution Width CV 13.9 % (11.6-14.6); RBC Distribution Width SD 45.2 fl (35.1-43.9); Red Blood Count 4.84 M/mm3 (4.2-5.4); White Blood Count 6.2 K/mm3 (4.4-11.0)
[2022-06-30 14:28] LABS: Differential Indicated SCAN CRITERIA MET
[2022-06-30 14:39] LABS: Platelet Count 229 K/mm3 (150-450)
[2022-06-30 14:40] LABS: Mean Platelet Vol. 9.4 fl (6.2-12.0)
[2022-06-30 14:43] LABS: Anion Gap 2 (5-15); BUN 15 mg/dL (7-18); BUN/Creat Ratio 21.8 RATIO (10-20); Calcium,Total 8.8 mg/dL (8.5-10.1); Chloride 107 mmol/L (98-107); Creatinine, Serum 0.69 mg/dL (0.55-1.02); EST Glomerular Filtration Rate 87 mL/min (>60); Est Glom Filt Rate - Afr Amer 106 mL/min (>60); Estimated Creatinine Clearance 37.12 ml/min; Glucose 94 mg/dL (74-106); Potassium 4.2 mmol/L (3.5-5.1); Sodium Level 142 mmol/L (136-145)
--- NOTE | 2022-06-30 14:51 | CT_ITS ---
STUDY: CTA CHEST REASON FOR EXAM: Female, 81 years old. Hypoxia RADIATION DOSAGE (If Supplied By Facility): CTDIvol = ( 13.11 ) mGy, DLP = ( 432.42 ) mGycm TECHNIQUE: The examination was performed with the intravenous administration of IV 100mL Isovue-370. Post-processing of the angiographic images was performed, with multiplanar reformation and 3D reconstruction. Individualized dose optimization techniques were used for this CT. COMPARISON: None. FINDINGS: Normal enhancement of the main pulmonary artery and right and left pulmonary arteries. Normal enhancement of the bilateral peripheral pulmonary arteries. There is no demonstrated pulmonary embolism. Normal thoracic aorta and visualized great vessels. There is no demonstrated aortic dissection. There is cardiomegaly. There are calcifications of the coronary arteries. Normal mediastinum. Normal hilar regions. Normal visualized trachea and bronchi. Elevation of the right hemidiaphragm. Normal pulmonary parenchyma. Normal pleura. Normal chest wall structures. Intraluminal filling defects seen in the right upper pulmonary artery as well as the interlobar pulmonary artery. This is indicative of pulmonary embolus. There are degenerative changes of thoracic spine. There is a 2.9 sinus cyst in the upper lateral aspect of the left kidney. CT/CTA Chest W/WO Contrast IMPRESSION: Pulmonary embolism and branches of the right upper and right interlobar pulmonary artery. Elevation of the right hemidiaphragm. Electronically Signed: Izaiah Bush MD at 15:39 EST ,
--- NOTE | 2022-06-30 15:56 | VDLE_ITS ---
Reason For Study: Pulmonary embolism RIGHT LEFT GSV is normal. GSV is normal. CFV is compressible, spontaneous, phasic, CFV is compressible, spontaneous, phasic, competent and demonstrates normal competent, and demonstrates normal augmentation. augmentation. FV is compressible, spontaneous, phasic, FV is compressible, spontaneous, phasic, competent and demonstrates normal competent and demonstrates normal augmentation. augmentation. POP V is compressible, spontaneous, phasic, POP V is compressible, spontaneous, phasic, competent and demonstrates normal competent and demonstrates normal augmentation. augmentation. T/P Trunk is compressible. T/P Trunk is compressible. PTV is compressible. PTV is compressible. RT PerV is compressible. LT PerV is compressible. Procedure This is a venous duplex using B-mode, color flow and spectral Doppler. Exam performed portable in ED. A preliminary report was called and/or faxed to Dr. Padgett. VL/Venous Duplex US - J Carlos Extrem Interpretation Summary No evidence for acute deep venous thrombosis bilateral lower extremities with p atent and compressible bilateral great saphenous veins. Ordering Physician: Rodney Padgett Referring Physician: Adebayo Kaba Chi Performed By: Rosalva Higuera RVT
[2022-06-30] MEDS: Enoxaparin 80 MG/0.8 ML Syringe 70 MG SC (16:26)
--- NOTE | 2022-06-30 16:58 | HP.PCM.HOS_ITS ---
HPI - General General Date of Admission: 06/30/22 Date of Service: 06/30/22 Chief Complaint: Hypoxia HPI Narrative IRIS PENNY, is a 81 F who presented to the emergency department from the pre area where she was getting prepped for a cystoscopy by Dr. Cummins as she gets frequent urinary tract infections for hypoxia. The patient reports she has a history of COPD with previous tobacco abuse and lung cancer but wears no oxygen at home. It was reported that she looked short of breath and was found to be hypoxic. The patient denies any sensation of shortness of breath and has a chronic cough that developed since fall. She notes that she is also been a bit more fatigued and winded since that point in time as well but did not pursue any work-up. She is denying any chest pain and states she feels fine overall. She was given an aerosol and preop but had no resolution of her hypoxia. In preop she was reported to be hypoxic in the 70s and she was brought to the emergency department on 2 L nasal cannula. At 1 point it was increased to 5 L however at the time of my evaluation she was satting 95% on 2 L. She denies any recent travel or surgeries but does note she had previous PE back in 2019 for which she was treated with Eliquis. After 1 year she was instructed to stop taking her Eliquis. She states at that time it was a saddle pulmonary embolus. It sounds as though that was a on unprovoked PE as well. She did require oxygen after that event but was able to be weaned off of it. Vital signs on presentation demonstrated a temperature of 97.1, heart rate of 62, blood pressure 168/61, respiratory was 18 and oxygen saturations were 100% on 2 L nasal cannula and 86% on room air. Her CBC is overall all unremarkable. Her chemistry panel shows chronically elevated serum bicarb but was otherwise unremarkable. Chest x-ray showed evidence of resection of the right upper lobe nodule with elevation of the right hemidiaphragm and blunting of the right costophrenic angle but no acute process was noted. A CTA of her chest was performed where she was noted to have a pulmonary embolism in the branches of the right upper and right interlobular pulmonary artery. Her EKG showed normal sinus rhythm without any ST-T wave changes. Given the fact that she was requiring supplemental oxygen and we are not able to obtain supplemental oxygen for people at discharge from the emergency department she will need to be admitted. She was given Lovenox x1 dose in the emergency department. A troponin was added on and if elevated we will get an echocardiogram. [facility] Medical History Anxiety Arthritis Back pain Cancer Cardiology follow-up encounter Depression Former smoker Heart disease Heartburn High cholesterol History of diverticulitis History of echocardiogram History of edema History of stress test Hypertension Loss of hearing Myocardial infarction Shortness of breath on exertion Wears glasses Wears partial dentures Home Medications metoprolol tartrate 50 mg tablet (Lopressor) 25 mg PO BID bp 04/27/14 [History Last Taken 06/30/22] atorvastatin 10 mg tablet 40 mg PO QHS cholesterol 07/21/17 [History Last Taken 06/29/22] aspirin 81 mg tablet,delayed release 81 mg PO DAILY heart health 06/21/22 [History Last Taken 06/29/22] escitalopram oxalate 10 mg tablet (Lexapro) 10 mg PO DAILY mood 06/21/22 [History Last Taken 06/29/22] lisinopril 5 mg tablet 5 mg PO PRN PRN BP 06/21/22 [History Last Taken 3 Days Ago ~06/27/22] loratadine 10 mg tablet 10 mg PO DAILY PRN allergies 06/30/22 [History Last Taken 06/30/22] Allergy/AdvReac Type Severity Reaction Status Date / Time No Known Allergies Allergy Unverified 06/30/22 12:36 Family History Mother Colon cancer Father Myocardial infarction Surgical History History of lobectomy of lung Hx of eye surgery Hx of right cataract extraction Lung cancer Social History (Updated 06/30/22 @ 17:[address] Mary Meredith DO) housing: house Smoking Status: Former smoker alcohol intake: never substance use type: does not use ROS Constitutional Constitutional: Reports fatigue; Denies anorexia, change in weight, chills, fever(s), malaise, night sweats, weakness or other Eyes Eyes: Denies blurry vision, change in eye color, change in vision, discharge from eye(s), double vision, erythema, eye pain, loss of vision or other ENT HEENT: Reports abnormal hearing and hearing loss; Denies dysphagia, ear pain, epistaxis, headache(s), nasal congestion, nasal discharge, post nasal drip, sinus pressure, sore throat or other Cardiovascular Cardiovascular: Reports dyspnea on exertion; Denies chest pain, claudication, edema, lightheadedness, orthopnea, palpitations, paroxysmal nocturnal dyspnea, rapid heart rate, syncope or other Respiratory/Chest Respiratory/Chest: Reports cough, dyspnea and shortness of breath with exertion; Denies excessive phlegm production, hemoptysis, productive cough, shortness of breath at rest, wheezing or other Gastrointestinal Gastrointestinal: Denies abdominal pain, coffee ground emesis, constipation, diarrhea, dyspepsia, hematemesis, hematochezia, loose stools, melena, nausea, vomiting or other Genitourinary Genitourinary: Reports burning urination, dysuria, urinary frequency and urinary incontinence; Denies difficulty urinating, hematuria, nocturia, urinary h esitancy, urinary urgency or other Musculoskeletal Musculoskeletal: Denies arthralgias, back pain, joint pain, joint stiffness, joint swelling, myalgias, neck pain or other Neurologic Neurologic: Denies abnormal gait, abnormal speech, confusion, disequilibrium, dizziness, focal weakness, headache(s), numbness, paresthesias, seizure-like activity, seizures, syncope, tingling, tremor(s) or other Psychiatric Psychiatric: Denies anxiety, depression, homicidal ideation, suicidal ideation or other Endocrine Endocrinology: Denies change in body appearance, cold intolerance, excessive sweating, heat intolerance, polydipsia, polyuria or other Hematologic/Lymphatic Hematologic/Lymphatic: Denies anemia, easy bleeding, easy bruising, lymphadenopathy or other Allergic/Immunologic Allergic/Immunologic: Denies rhinitis, hives, eczemia, asthma or other Vital Signs Vital Signs Vital Signs: 06/30/22 12:34 06/30/22 12:36 06/30/22 13:30 Temperature 97.1 F L 97.6 F L Temperature Source Temporal Temporal Pulse Rate 62 59 L Respiratory Rate 18 22 H Respiratory Effort Normal Non-Labored Respiratory Depth Normal Respiratory Pattern Tachypnea Blood Pressure 163/61 H 143/57 H Blood Pressure Mean 95 85 Pulse Ox 100 97 Oxygen Delivery Method Nasal Cannula Nasal Cannula Nasal Cannula Oxygen Flow Rate (L/min) 2 5 5 06/30/22 13:36 06/30/22 13:40 06/30/22 13:45 Temperature 97.7 F L Temperature Source Temporal Pulse Rate 57 L Respiratory Rate 19 H Respiratory Effort Respiratory Depth Respiratory Pattern Blood Pressure 149/73 H Blood Pressure Mean 98 Pulse Ox 98 98 92 Oxygen Delivery Method Nasal Cannula Nasal Cannula Nasal Cannula Oxygen Flow Rate (L/min) 5 5 3 06/30/22 14:03 06/30/22 14:18 06/30/22 15:03 Temperature Temperature Source Pulse Rate 63 51 L Respiratory Rate 17 18 Respiratory Effort Respiratory Depth Respiratory Pattern Blood Pressure 140/55 H 146/68 H Blood Pressure Mean 83 94 Pulse Ox 93 97 96 Oxygen Delivery Method Nasal Cannula Nasal Cannula Oxygen Flow Rate (L/min) 3 3 06/30/22 16:11 06/30/22 14:36 06/30/22 15:36 Temperature 98 F 97.9 F 97.8 F Temperature Source Temporal Temporal Temporal Pulse Rate 45 L 55 L 49 L Respiratory Rate 24 H 22 H 23 H Respiratory Effort Respiratory Depth Respiratory Pattern Blood Pressure 139/53 H 146/68 H 138/53 H Blood Pressure Mean 81 94 81 Pulse Ox 96 95 94 Oxygen Delivery Method Nasal Cannula Nasal Cannula Nasal Cannula Oxygen Flow Rate (L/min) Weight Weight: 69.853 kg Body Mass Index (BMI) 27.3 Physical Exam Const alert, oriented x3, no apparent distress and well nourished Constitutional Narrative: Overweight, older white female sitting up in bed, very pleasant, seems comfortable and nontoxic at this time General Appearance: cooperative HEENT normocephalic, head/scalp atraumatic and moist oral mucous membranes; Negative for hearing grossly normal bilaterally HEENT Narrative: Dentures in place, Mallampati 2, no thrush, mild hearing loss Eyes PERRL, EOMs intact bilaterally and conjunctivae normal Eyes Narrative: No scleral icterus Neck no lymphadenopathy, supple, no JVD and no carotid bruits Neck Narrative: Trachea midline, no thyroid enlargement Resp normal respiratory effort, no retractions, no use of accessory muscles and No clear to auscultation bilaterally Resp Narrative: Scattered end expiratory wheezes, absent breath sounds right upper lobe Auscultation: wheezes; Negative for crackles or rhonchi Cardio regular rate, regular rhythm, S1 normal heart sound, S2 normal heart sound, no murmurs, no rub, no gallops and no clicks GI normal to inspection, nondistended, normoactive bowel sounds, soft to palpation and non-tender Extremity Extremity Narrative: 2+ pedal pulses, trace left lower extremity edema Skin no rashes or lesions noted, no wounds, skin turgor normal, no jaundice, no petechiae and no mottling Neuro oriented x3, CN's II-XII intact bilaterally, moves all extremities and no focal motor deficits Speech: speech normal Psych affect normal Psych Narrative: Very pleasant Results Lab / Micro Data Attestation: I reviewed the patient's lab results. Result Diagrams: 06/30/22 14:15 06/30/22 14:15 Labs: Laboratory Results - last 24 hr 06/30/22 14:15: WBC 6.2, RBC 4.84, Hgb 13.9, Hct 43.2, MCV 89.3, MCH 28.7, MCHC 32.2, RDW Std Deviation 45.2 H, RDW Coeff of Ozzie 13.9, Plt Count 229, MPV 9.4, Immature Gran % (Auto) 0.300, Neut % (Auto) 66.5, Lymph % (Auto) 22.2, [place] % (Auto) 7.9, Eos % (Auto) 2.8, Baso % (Auto) 0.3, Absolute Neuts (auto) 4.1, Absolute Lymphs (auto) 1.37, Nucleated RBC % 0 06/30/22 14:15: Sodium 142, Potassium 4.2, Chloride 107, Carbon Dioxide 33.0 H, Anion Gap 2 L, BUN 15, Creatinine 0.69, Estim Creat Clear Calc 37.12, Est GFR (MDRD) Af Amer 106, Est GFR (MDRD) Non-Af 87, BUN/Creatinine Ratio 21.8 H, Glucose 94, Calcium 8.8 Radiology Impression Chest X-Ray 06/30/22 13:45 IMPRESSION: Status post resection of the right upper lobe nodule with the elevation of the right hemidiaphragm and blunting of the right costophrenic angle. Electronically Signed: Izaiah Bush MD at 14:43 EST , Chest CTA 06/30/22 14:51 IMPRESSION: Pulmonary embolism and branches of the right upper and right interlobar pulmonary artery. Elevation of the right hemidiaphragm. Electronically Signed: Izaiah Bush MD at 15:39 EST , Assessment & Plan Assessment/Plan (1) Hypoxia: (2) Recurrent pulmonary emboli: PLAN: Plan Acute hypoxia secondary to recurrent right-sided pulmonary embolus -CTA of the chest shows pulmonary embolism in the branches of the right upper and right interlobular pulmonary artery -Patient with previous saddle embolus in 2019 -Was treated for a year with Eliquis -Start apixaban 10 mg twice daily for 7 days then transition to 5 mg twice daily -Was dosed with 70 mg of Lovenox in the emergency department -Unprovoked and patient will likely need anticoagulation for lifetime at this point -Troponin pending if elevated will check echocardiogram otherwise we will simply need to arrange for supplemental oxygen and hopefully the patient will be able to be discharged tomorrow -Would recommend outpatient follow-up with pulmonary medicine History of right upper lobe lung cancer -Surgical cure with resection -Stable COPD -As needed albuterol -Patient is not on any inhalers -Would recommend a patient pulmonary medicine follow-up as she is wheezing on exam at the time of admission -I do not feel that this is the reason for her acute hypoxia however I will start her on a steroid taper with prednisone 40 mg daily -Scheduled DuoNebs -Patient has already quit smoking CAD/hyperlipidemia/hypertension -Continue home lisinopril -Continue home metoprolol -Continue home statin -Continue home aspirin Seasonal allergies -Continue home loratadine Frequent UTIs -Recommend outpatient follow-up with Dr. Cummins after discharge to reschedule cystoscopy -May need to wait some time as I would not recommend discontinuation of anticoagulation for at least 6 months Depression -Continue home Lexapro DVT prophylaxis -Full anticoagulation with apixaban CODE STATUS -Full code Charges/Coding Visit Charges Inpatient E&M: 66896 Init Hosp L2
[2022-06-30 17:17] LABS: International Normalized Ratio 1.1; Prothrombin Time (Protime)PT. 13.4 SECONDS (11.7-14.9)
[2022-06-30 17:40] LABS: Troponin-I HS 14 pg/mL (3.0-54.0)
[2022-06-30] MEDS: MethylPREDNISolone 125 MG/2 ML Vial 60 MG IV (22:10)
[2022-06-30] MEDS: 0.9% Saline Lock 10 ML Syringe IV (22:10)
[2022-06-30] MEDS: APIXABAN 5 MG TABLET 10 MG PO (22:10)
[2022-07-01] VITALS (8 sets, daily range): BP systolic 152–155; BP diastolic 58–63; PULSE 59–75; RESP 16–19; TEMP 36.4–36.5; O2SAT 85–95
[2022-07-01] MEDS: Ipratropium/Albuterol Sulfate 3 ML AMPUL.NEB INHALATION ×3 (03:10→11:00)
[2022-07-01 07:40] LABS: Absolute Lymphocyte Count 0.44 X10^3/uL (0.83-4.51); Absolute Neutrophil Count 3.7 X10^3/uL (2.0-7.7); Basophil# 0.01 X10^3/uL; Basophil% 0.2 % (0-1); Hematocrit 42.2 % (37-47); Hemoglobin 13.9 g/dL (12.0-15.0); Lymphocyte # 0.44 X10^3/ul (0.83-4.51); Lymphocyte % 10.4 % (19-41); Mean Corp Hgb Conc 32.9 g/dL (32-36); Mean Corpuscular Hgb 29.3 pg (27.0-32.0); Mean Corpuscular Volume 88.8 fL (81-99); Mean Platelet Vol. 9.6 fl (6.2-12.0); Monocyte# 0.04 X10^3/uL; Monocyte% 0.9 % (0-10); NRBC Flagged by Analyzer 0 % (0-5); Neutrophil # 3.72 X10^3/uL (2.7-7.7); Neutrophil % 88.3 % (47-70); POSITIVE DIFFERENTIAL YES; Platelet Count 225 K/mm3 (150-450); RBC Distribution Width CV 13.7 % (11.6-14.6); RBC Distribution Width SD 44.9 fl (35.1-43.9); Red Blood Count 4.75 M/mm3 (4.2-5.4); White Blood Count 4.2 K/mm3 (4.4-11.0)
[2022-07-01 07:47] LABS: Differential Indicated SCAN CRITERIA MET
[2022-07-01 08:03] LABS: ALB/GLOB Ratio 0.8 RATIO (0.9-2.4); AST(SGOT) 19 U/L (15-37); Alanine Aminotransfer ALT/SGPT 21 U/L (13-56); Alkaline Phosphatase 122 U/L (45-117); Anion Gap 4 (5-15); BUN 16 mg/dL (7-18); BUN/Creat Ratio 20.6 RATIO (10-20); Calcium,Total 8.7 mg/dL (8.5-10.1); Chloride 106 mmol/L (98-107); Creatinine, Serum 0.78 mg/dL (0.55-1.02); EST Glomerular Filtration Rate 76 mL/min (>60); Est Glom Filt Rate - Afr Amer 92 mL/min (>60); Estimated Creatinine Clearance 33.86 ml/min; Globulin 3.9 g/dL (2.2-4.2); Glucose 170 mg/dL (74-106); Magnesium 2.2 mg/dL (1.6-2.6); Protein, Total 6.9 g/dL (6.4-8.2); Sodium Level 141 mmol/L (136-145); Thyroid Stim Hormone (TSH) 0.49 uIU/mL (0.358-3.74)
[2022-07-01] MEDS: predniSONE 20 MG Tablet 40 MG PO (08:56)
[2022-07-01] MEDS: APIXABAN 5 MG TABLET 10 MG PO (08:56)
--- NOTE | 2022-07-01 09:22 | CASEMGMT ---
SHAUN CM in to pt room, pt sitting up in bed with oxygen on. Pt requires oxygen upon dc. Provided pt with a local verbal in network list of DME companies, pt chose [employer]. Pt has a pox at home but states it is broke. She is able to obtain one. Discussed homegoing oxygen procedure, pt verbalizes understanding. Pt to get rx at [facility] pharmacy, discussed the eliquis card that will be used and if not affordable when this runs out to discuss with her physician. Pt states she has been on this in the past. Pt denies any further homegoing needs. Pt is up I in room.
--- NOTE | 2022-07-01 12:03 | DCINST_ITS ---
Discharge Instructions Diet Discharge Diet: Low fat / Low cholesterol Activity Discharge Activity: Return to Normal Activity Dressing / Incision Call your doctor if you observe: Fever of 101 or Higher, Shortness of breath, Dizziness, Fainting spells, Swelling in the ankles, Chest pain and Increased palpitations (irregular heartbeat) Follow Up Care Test Results: Test results from this visit will be discussed in further detail at your follow- up appointment, if applicable. Discharge Plan Admission Admit Date/Time: 06/30/22 16:02 Attending Provider: Humphrey Jones Primary Care Provider: Adebayo Kaba [employer] Providers: Mary Meredith Discharge Orders/Prescriptions Prescriptions: New prednisone 20 mg Tablet 40 mg PO BREAKFAST 7 Days Qty: 14 0RF Eliquis DVT-PE Treat 30D Start 5 mg (74 tabs) tablets,dose pack 10 mg PO BID Qty: 74 0RF Continued atorvastatin 10 mg tablet 40 mg PO QHS metoprolol tartrate [Lopressor] 50 MG tablet 25 mg PO BID Label Comments: aspirin 81 mg Tablet,Delayed Release (Dr/Ec) 81 mg PO DAILY lisinopril 5 mg Tablet 5 mg PO PRN PRN (Reason: BP) escitalopram oxalate [Lexapro] 10 mg Tablet 10 mg PO DAILY loratadine 10 mg Tablet 10 mg PO DAILY PRN (Reason: allergies) Referrals / Follow Up: Adebayo Kaba Chi, MD [Primary Care Provider] - Within 1 Week Terrance Valera MD [Med Staff - Active Staff] - Within 3 Months Disposition Disposition (needs filled in before D/C Order can be placed): Home, Self Care
--- NOTE | 2022-07-01 12:12 | DS.PCM_ITS ---
Providers Date of Admission: 06/30/22 Primary Care Physician: Dr. Adebayo Kaba MD Reason For Visit: HYPOXIA WITH NEW PE Diagnosis Discharge Diagnosis (1) Hypoxia: Status: Acute Code(s): R09.02 - Hypoxemia (2) Recurrent pulmonary emboli: Status: Acute Code(s): I26.99 - Other pulmonary embolism without acute cor pulmonale Medications at Discharge Home Medications metoprolol tartrate 50 mg tablet (Lopressor) 25 mg PO BID bp 04/27/14 atorvastatin 10 mg tablet 40 mg PO QHS cholesterol 07/21/17 aspirin 81 mg tablet,delayed release 81 mg PO DAILY heart health 06/21/22 escitalopram oxalate 10 mg tablet (Lexapro) 10 mg PO DAILY mood 06/21/22 lisinopril 5 mg tablet 5 mg PO PRN PRN BP 06/21/22 loratadine 10 mg tablet 10 mg PO DAILY PRN allergies 06/30/22 apixaban 5 mg (74 tabs) tablets in a dose pack (Eliquis DVT-PE Treat 30D Start) 10 mg PO BID #74 tabs 07/01/22 prednisone 20 mg tablet 40 mg PO BREAKFAST 7 days #14 tabs 07/01/22 Hospital Course Operations None Procedures None Summary of Care Provided Minutes Spent on Discharge: 35 Hospital Course: Per HPI: IRIS PENNY, is a 81 F who presented to the emergency department from the preop area where she was getting prepped for a cystoscopy by Dr. Cummins as she gets frequent urinary tract infections for hypoxia.? The patient reports she has a history of COPD with previous tobacco abuse and lung cancer but wears no oxygen at home.? It was reported that she looked short of breath and was found to be hypoxic.? The patient denies any sensation of shortness of breath and has a chronic cough that developed since fall.? She notes that she is also been a bit more fatigued and winded since that point in time as well but did not pursue any work-up.? She is denying any chest pain and states she feels fine overall.? She was given an aerosol and preop but had no resolution of her hypoxia.? In preop she was reported to be hypoxic in the 70s and she was brought to the emerg ency department on 2 L nasal cannula.? At 1 point it was increased to 5 L however at the time of my evaluation she was satting 95% on 2 L.? She denies any recent travel or surgeries but does note she had previous PE back in 2019 for which she was treated with Eliquis.? After 1 year she was instructed to stop taking her Eliquis.? She states at that time it was a saddle pulmonary embolus.? It sounds as though that was a on unprovoked PE as well.? She did require oxygen after that event but was able to be weaned off of it. Vital signs on presentation demonstrated a temperature of 97.1, heart rate of 62, blood pressure 168/61, respiratory was 18 and oxygen saturations were 100% on 2 L nasal cannula and 86% on room air.? Her CBC is overall all unremarkable.? Her chemistry panel shows chronically elevated serum bicarb but was otherwise unremarkable.? Chest x-ray showed evidence of resection of the right upper lobe nodule with elevation of the right hemidiaphragm and blunting of the right co stophrenic angle but no acute process was noted.? A CTA of her chest was performed where she was noted to have a pulmonary embolism in the branches of the right upper and right interlobular pulmonary artery.? Her EKG showed normal sinus rhythm without any ST-T wave changes. Given the fact that she was requiring supplemental oxygen and we are not able to obtain supplemental oxygen for people at discharge from the emergency department she will need to be admitted.? She was given Lovenox x1 dose in the emergency department.? A troponin was added on and if elevated we will get an echocardiogram. Hospital Course: 1. Acute hypoxia secondary to recurrent right-sided pulmonary embolus/history of right upper lobe lung cancer/COPD exacerbation?81-year-old female with a hi story of right upper lobe lung cancer status post lobectomy as well as a history of tobacco abuse presents to the hospital with shortness of breath while at her urologist office. She is found to have pulmonary embolism which is the likely main source of her hypoxia however she also has wheezing on exam and given her lung cancer history as well as her tobacco use this is represented likely by a COPD exacerbation. She does not take any inhalers at home. We will plan on discharging her with an Eliquis dose pack for 10 mg p.o. of Eliquis twice daily for a week and then go down to 5 twice daily and given that this is a recurrent PE this will be lifelong. I do recommend she follow-up with pulmonology as an outpatient to obtain 6-minute walk test to come off of her oxygen requirement with ambulation, as well as to obtain outpatient PFTs for evaluation of possible COPD and to be started on inhalers. In the meantime we will continue with a 7- day course of prednisone. I discussed with her the plan for discharge today she expressed understanding of the risk benefits of going home and would like to go home today. 2. Coronary artery disease, hyperlipidemia, hypertension, frequent UTIs, depression all chronic medical conditions complicate her care. Her home me dications were continued where appropriate. Physical Exam Narrative General: Alert, Oriented x3, Cooperative, No apparent distress HEENT: Atraumatic, PERRLA, EOMI, Normocephalic Oral: Moist Mucosa Neck: Supple, No JVD Lungs: Diminished, Normal air movement, No rhonchi, wheeze, No rales Cardiovascular: Regular rate, Regular Rhythm, Normal S1, Normal S2, No murmurs Abdomen: Soft, Non Tender, Non-Distended, No Hepato-splenomegaly Extremities: No edema, Capillary Refill Less than 3 Seconds Skin: No rashes, No breakdown Musculoskeletal: No Tenderness to Palpation of Joints or Extremities Neurological: Cranial nerves II-XII grossly intact, Motor Exam 5/5 strength throughout, Sensory exam intact to light touch and pain Psych/Mental Status: Normal Affect, Appropriate Weight / BMI Weight Weight: 154 lb Body Mass Index (BMI) 29.0 ABG / Lab / Microbiology Data Result Diagrams: 07/01/22 05:35 07/01/22 05:35 Laboratory: Laboratory Results - last 24 hr 06/30/22 14:15: WBC 6.2, RBC 4.84, Hgb 13.9, Hct 43.2, MCV 89.3, MCH 28.7, MCHC 32.2, RDW Std Deviation 45.2 H, RDW Coeff of Ozzie 13.9, Plt Count 229, MPV 9.4, Immature Gran % (Auto) 0.300, Neut % (Auto) 66.5, Lymph % (Auto) 22.2, [place] % (Auto) 7.9, Eos % (Auto) 2.8, Baso % (Auto) 0.3, Absolute Neuts (auto) 4.1, Absolute Lymphs (auto) 1.37, Nucleated RBC % 0 06/30/22 14:15: Sodium 142, Potassium 4.2, Chloride 107, Carbon Dioxide 33.0 H, Anion Gap 2 L, BUN 15, Creatinine 0.69, Estim Creat Clear Calc 37.12, Est GFR (MDRD) Af Amer 106, Est GFR (MDRD) Non-Af 87, BUN/Creatinine Ratio 21.8 H, Glucose 94, Calcium 8.8 06/30/22 14:15: Troponin I High Sens 14 06/30/22 17:03: PT 13.4, INR 1.1, APTT 31.0 07/01/22 05:35: WBC 4.2 L, RBC 4.75, Hgb 13.9, Hct 42.2, MCV 88.8, MCH 29.3, MCHC 32.9, RDW Std Deviation 44.9 H, RDW Coeff of Ozzie 13.7, Plt Count 225, MPV 9.6, Immature Gran % (Auto) 0.200, Neut % (Auto) 88.3 H, Lymph % (Auto) 10.4 L, [place] % (Auto) 0.9, Eos % (Auto) 0.0, Baso % (Auto) 0.2, Absolute Neuts (auto) 3.7, Absolute Lymphs (auto) 0.44 L, Nucleated RBC % 0, Diff Path Review October07/01/22 05:35: Sodium 141, Potassium 4.0, Chloride 106, Carbon Dioxide 31.0, Anion Gap 4 L, BUN 16, Creatinine 0.78, Estim Creat Clear Calc 33.86, Est GFR (MDRD) Af Amer 92, Est GFR (MDRD) Non-Af 76, BUN/Creatinine Ratio 20.6 H, Glucose 170 H, Calcium 8.7, Phosphorus 3.0, Magnesium 2.2, Total Bilirubin 1.00, AST 19, ALT 21, Alkaline Phosphatase 122 H, Total Protein 6.9, Albumin 3.0 L, Globulin 3.9, Albumin/Globulin Ratio 0.8 L, TSH 0.49 Radiography Diagnostic Testing: Radiology Impression Chest X-Ray 06/30/22 13:45 IMPRESSION: Status post resection of the right upper lobe nodule with the elevation of the right hemidiaphragm and blunting of the right costophrenic angle. Electronically Signed: Izaiah Bush MD at 14:43 EST , Chest CTA 06/30/22 14:51 IMPRESSION: Pulmonary embolism and branches of the right upper and right interlobar pulmonary artery. Elevation of the right hemidiaphragm. Electronically Signed: Izaiah Bush MD at 15:39 EST , D/C Instructions Discharge Diet: Low fat / Low cholesterol Call your doctor if you observe: Fever of 101 or Higher, Shortness of breath, Dizziness, Fainting spells, Swelling in the ankles, Chest pain and Increased palpitations (irregular heartbeat) Meaningful Use Info Meaningful Use Diagnoses (Choose all that apply): None applicable Discharge Plan Admission Admit Date/Time: 06/30/22 16:02 Attending Provider: Humphrey Jones Primary Care Provider: Adebayo Kaba [employer] Providers: Mary Meredith Discharge Orders/Prescriptions Prescriptions: New prednisone 20 mg Tablet 40 mg PO BREAKFAST 7 Days Qty: 14 0RF Eliquis DVT-PE Treat 30D Start 5 mg (74 tabs) tablets,dose pack 10 mg PO BID Qty: 74 0RF Continued atorvastatin 10 mg tablet 40 mg PO QHS metoprolol tartrate [Lopressor] 50 MG tablet 25 mg PO BID Label Comments: aspirin 81 mg Tablet,Delayed Release (Dr/Ec) 81 mg PO DAILY lisinopril 5 mg Tablet 5 mg PO PRN PRN (Reason: BP) escitalopram oxalate [Lexapro] 10 mg Tablet 10 mg PO DAILY loratadine 10 mg Tablet 10 mg PO DAILY PRN (Reason: allergies) Referrals / Follow Up: Terrance Valera MD [Med Staff - Active Staff] - Within 3 Months Adebayo Kaba Chi, MD [Primary Care Provider] - Within 1 Week Disposition Disposition (needs filled in before D/C Order can be placed): Home, Self Care Charges/Coding Visit Charges Inpatient E&M: 82981 Disch Hosp >30min
[2022-07-04 11:53] LABS: Pathologist Review Reviewed
== END 2022-07-01 12:11 | disposition home or self-care (01) ==
LOC: ED 15:56 → PCU 16:17
PROVIDERS: Admitting Provider Internal Medicine; Emergency Provider Emergency Medicine; PCP Family Medicine Geriatric Medicine; Visit Provider Family Medicine
DX: I26.99 Other pulmonary embolism without acute cor pulmonale (principal); J44.9 Chronic obstructive pulmonary disease, unspecified; Z85.118 Personal history of other malignant neoplasm of bronchus and lung; R53.83 Other fatigue; E78.00 Pure hypercholesterolemia, unspecified; R93.89 Abnormal findings on diagnostic imaging of other specified body structures; I10 Essential (primary) hypertension; Z79.82 Long term (current) use of aspirin; I25.10 Atherosclerotic heart disease of native coronary artery without angina pectoris; R09.02 Hypoxemia; Z87.891 Personal history of nicotine dependence; Z79.899 Other long term (current) drug therapy; Z86.711 Personal history of pulmonary embolism; F41.9 Anxiety disorder, unspecified; F32.A Depression, unspecified
CPT/HCPCS: 36415; 71045; 71275; 80048; 80053; 83735; 84100; 84443; 84484; 85025; 85610; 85730; 93005; 93970; 94640; 96372; 96374; 99221; 99252; 99285; J7120; Q9967; A4216; G0378; G0463

== ENCOUNTER → 2022-07-20 | Outpatient (CLI) | payer MEDICARE, OTHER, SELFPAY ==
--- NOTE | 2022-07-20 13:49 | BI_ITS ---
MAMMOGRAPHY - BILATERAL SCREENING REASON FOR EXAM: Female, 81 years old. Routine annual screening examination. PERTINENT HISTORY: Aunt with breast cancer. TECHNIQUE: Digital bilateral breast apoorva (3D mammographic acquisition) in the CC and MLO projections. 2-D mediolateral oblique (MLO) and craniocaudad (CC) views of both breasts were obtained. CAD: Full Field Digital Mammography with Computer Added Detection was performed. COMPARISON: Comparison is made with prior study dated 06/23/2016 and 06/03/2015. FINDINGS: Breast Composition: The breasts are almost entirely fatty. There are no dominant masses or suspicious calcifications. Stable small benign appearing bilateral axillary lymph nodes. No other significant abnormalities are identified. There has been no significant change since the prior study. BI/SCRN MAMM (CAD)W/APOORVA BILAT IMPRESSION: Stable bilateral screening mammogram. Yearly follow-up mammogram recommended. (A) ASSESSMENT CATEGORY: BIRADS Category 2: Benign. A letter regarding these results will be sent to the patient by the facility within 30 days. Approximately 10% of breast cancers are not detected by mammography. A normal mammogram should not delay biopsy of a clinically suspicious abnormality. [id number] Electronically Signed: Izaiah Bush MD at 14:54 EST ,
== END | disposition home or self-care (01) ==
LOC: OPBI 13:47
PROVIDERS: PCP Family Medicine Geriatric Medicine; Visit Provider Family Medicine Geriatric Medicine
DX: Z12.31 Encounter for screening mammogram for malignant neoplasm of breast (principal)
CPT/HCPCS: 77063; 77067

== ENCOUNTER → 2022-11-14 | Outpatient (CLI) | payer MEDICARE, OTHER, SELFPAY ==
[2022-11-14 17:15] LABS: Absolute Lymphocyte Count 1.54 X10^3/uL (0.83-4.51); Absolute Neutrophil Count 3.9 X10^3/uL (2.0-7.7); Basophil# 0.03 X10^3/uL; Basophil% 0.5 % (0-1); Eosinophil# 0.21 X10^3/uL; Eosinophils% 3.4 % (0-5); Hematocrit 41.5 % (37-47); Hemoglobin 13.4 g/dL (12.0-15.0); Lymphocyte # 1.54 X10^3/ul (0.83-4.51); Lymphocyte % 24.7 % (19-41); Mean Corp Hgb Conc 32.3 g/dL (32-36); Mean Corpuscular Hgb 28.5 pg (27.0-32.0); Mean Corpuscular Volume 88.3 fL (81-99); Mean Platelet Vol. 10.1 fl (6.2-12.0); Monocyte# 0.51 X10^3/uL; Monocyte% 8.2 % (0-10); NRBC Flagged by Analyzer 0 % (0-5); Neutrophil # 3.93 X10^3/uL (2.7-7.7); Platelet Count 261 K/mm3 (150-450); RBC Distribution Width CV 14.2 % (11.6-14.6); White Blood Count 6.2 K/mm3 (4.4-11.0)
[2022-11-14 17:43] LABS: Vitamin D,25 Hydroxy 30.5 ng/mL
[2022-11-14 17:45] LABS: ALB/GLOB Ratio 0.8 RATIO (0.9-2.4); AST(SGOT) 18 U/L (15-37); Alanine Aminotransfer ALT/SGPT 15 U/L (13-56); Albumin, Serum 3.1 g/dL (3.2-5.0); Alkaline Phosphatase 117 U/L (45-117); Anion Gap 6 (5-15); BUN 17 mg/dL (7-18); BUN/Creat Ratio 21.9 RATIO (10-20); Calcium,Total 8.8 mg/dL (8.5-10.1); Chloride 107 mmol/L (98-107); Creatinine, Serum 0.78 mg/dL (0.55-1.02); EST Glomerular Filtration Rate 76 mL/min (>60); Est Glom Filt Rate - Afr Amer 92 mL/min (>60); Globulin 3.9 g/dL (2.2-4.2); Glucose 141 mg/dL (74-106); Potassium 3.9 mmol/L (3.5-5.1); Sodium Level 140 mmol/L (136-145)
== END | disposition home or self-care (01) ==
LOC: POLAB3 14:15
PROVIDERS: PCP Family Medicine Geriatric Medicine; Visit Provider Family Medicine Geriatric Medicine
DX: I10 Essential (primary) hypertension (principal); E55.9 Vitamin D deficiency, unspecified
CPT/HCPCS: 36415; 80053; 82306; 84443; 85025

== ENCOUNTER 2023-02-16 14:06 | Inpatient (IN) | payer MEDICARE, OTHER, SELFPAY ==
[2023-02-16] VITALS (32 sets, daily range): BP systolic 106–131; BP diastolic 47–77; PULSE 73–120; RESP 13–50; TEMP 36.7–37.1; O2SAT 88–98; BMI 26.7; BMI 26.8
[2023-02-16 14:44] LABS: Absolute Lymphocyte Count 1.36 X10^3/uL (0.83-4.51); Absolute Neutrophil Count 6.9 X10^3/uL (2.0-7.7); Basophil# 0.04 X10^3/uL; Basophil% 0.4 % (0-1); Eosinophil# 0.16 X10^3/uL; Eosinophils% 1.8 % (0-5); Hematocrit 39.1 % (37-47); Hemoglobin 12.8 g/dL (12.0-15.0); Lymphocyte # 1.36 X10^3/ul (0.83-4.51); Lymphocyte % 14.9 % (19-41); Mean Corp Hgb Conc 32.7 g/dL (32-36); Mean Corpuscular Hgb 27.5 pg (27.0-32.0); Mean Corpuscular Volume 84.1 fL (81-99); Mean Platelet Vol. 9.2 fl (6.2-12.0); Monocyte# 0.62 X10^3/uL; Monocyte% 6.8 % (0-10); NRBC Flagged by Analyzer 0 % (0-5); Neutrophil # 6.85 X10^3/uL (2.7-7.7); Neutrophil % 74.9 % (47-70); Platelet Count 366 K/mm3 (150-450); RBC Distribution Width SD 43.3 fl (35.1-43.9); Red Blood Count 4.65 M/mm3 (4.2-5.4); White Blood Count 9.1 K/mm3 (4.4-11.0)
[2023-02-16 15:05] LABS: Anion Gap 4 (5-15); BUN 13 mg/dL (7-18); Calcium,Total 9.1 mg/dL (8.5-10.1); Chloride 94 mmol/L (98-107); Creatinine, Serum 0.81 mg/dL (0.55-1.02); EST Glomerular Filtration Rate 72 mL/min (>60); Est Glom Filt Rate - Afr Amer 87 mL/min (>60); Glucose 127 mg/dL (74-106); Potassium 2.7 mmol/L (3.5-5.1); Sodium Level 135 mmol/L (136-145); Troponin-I HS 24 pg/mL (3.0-54.0)
--- NOTE | 2023-02-16 15:10 | RAD_ITS ---
STUDY: X-RAY CHEST REASON FOR EXAM: Female, 82 years old. Shortness of breath. TECHNIQUE: Frontal and lateral views of the chest. COMPARISON: Chest dated June 2022. FINDINGS: Cardiomegaly with aortic tortuosity and calcification unchanged. Low volume inspiration with new dense opacity of the right lower lobe and patchy opacity of the left lower lobe. Small central lucency within the opacity projected over the right lower lobe. Findings are compatible with early/developing pneumonia, right greater than left. Follow-up chest imaging to resolution recommended. No abnormality of the visualized soft tissue structures of the upper abdomen. RAD/Chest PA and Lateral IMPRESSION: Cardiomegaly with new opacities in both lower lobes, right greater than left, compatible with early/developing pneumonia. Follow-up chest imaging to resolution recommended. Electronically Signed: Eriberto Kothari MD at 15:26 EDT ,
--- NOTE | 2023-02-16 15:24 | EX.ED.DYSGE1 ---
HPI <NOLAN Martinez - Last Filed: 02/16/23 16:03> History of Present Illness Chief Complaint: Shortness of Breath Narrative Narrative: Patient is a 82-year-old female with history of lung cancer which had partial lung removed, PEs on Eliquis, cholesterol anxiety who presents to the emergency department for 1 week of worsening shortness of breath. Per the son, the patient has been having fever, chills, coughing this for getting worse over the last week. She went to urgent care, her pulse oxygenation was 81% and she is now here for evaluation. Patient denies any specific chest pain. Patient denies any nausea or vomiting. PFS <NOLAN Martinez - Last Filed: 02/16/23 16:03> [facility] Medical History (Updated 02/16/23 @ 19:13 by Martha Esquivel) Anxiety Arthritis Back pain Cancer Cardiology follow-up encounter Coronary stenosis Depression Former smoker Heart disease Heartburn High cholesterol History of diverticulitis History of echocardiogram History of edema History of stress test Hypertension Loss of hearing Myocardial infarction Shortness of breath on exertion Wears glasses Wears partial dentures Home Medications metoprolol tartrate 50 mg tablet (Lopressor) 25 mg PO BID bp 14 [History Last Taken 02/16/23] atorvastatin 10 mg tablet 40 mg PO QHS cholesterol 07/21/17 [History Last Taken 02/15/23] escitalopram oxalate 10 mg tablet (Lexapro) 10 mg PO DAILY mood 06/21/22 [History Last Taken 02/15/23] loratadine 10 mg tablet 10 mg PO DAILY PRN allergies 06/30/22 [History Last Taken 02/16/23] apixaban 5 mg (74 tabs) tablets in a dose pack (Eliquis DVT-PE Treat 30D Start) 10 mg (2 x 5 mg (74 tabs)) PO BID #74 tabs 07/01/22 [Rx Last Taken 02/16/23] Allergy/AdvReac Type Severity Reaction Status Date / Time No Known Allergies Allergy Verified 02/16/23 18:32 Family History Mother Colon cancer Father Myocardial infarction Surgical History History of lobectomy of lung Hx of eye surgery Hx of right cataract extraction Lung cancer Social History (Updated 06/30/22 @ 17:[address] Mary Meredith, DO) housing: house Smoking Status: Former smoker alcohol intake: never substance use type: does not use ROS <NOLAN Martinez - Last Filed: 02/16/23 16:03> ROS ED ROS Narrative Constitutional: Negative for weight loss. Positive for fever, chills, weakness Eyes: Negative for vision loss, vision change, double vision ENT: Negative for any sore throat, ear pain, congestion Cardiovascular: Negative for any chest pain, tightness, palpitations Respiratory: Negative for any cough, sputum production, hemoptysis, dyspnea, dyspnea on exertion, orthopnea Gastrointestinal: Negative for any abdominal pain, nausea, vomiting, diarrhea, constipation, blood in stool, blood in vomit : Negative for any urinary frequency, dysuria, retention, blood in urine Muscle skeletal: Negative for any muscle joint pain, stiffness, myalgias, arthralgias, neck pain, back pain Neurological: Negative for any headache, syncope, numbness or tingling, dizziness Skin: Negative for any rashes, lumps, itching, abrasions, lacerations Psychiatric: Negative for any depression, anxiety, stress, suicidal ideation, homicidal ideation Hematologic: Negative for any easy bruising, excessive bruising, easy bleeding Allergies: Negative for any eczema, hives, rash EXAM <NOLAN Martinez - Last Filed: 02/16/23 16:03> Physical Exam Narrative Exam Narrative: Vital signs reviewed. Patient was hypoxic on arrival in the low 80s, patient is maintaining her saturation on 4 L. She is cachectic appearing HEET: Head normocephalic atraumatic, TMs clear bilaterally. Posterior pharynx is clear, moist mucous membranes. Nares clear bilaterally. Neck: Supple with no lymphadenopathy or tenderness. No signs of meningismus, negative jolt sign. Cardiac: Regular rate and rhythm no murmurs gallops or rubs, equal peripheral pulses bilaterally. Respiratory: Patient is diminished lung sounds in the bases, right-sided crackles worse on the right. No chest tenderness. Abdomen: Soft, nontender, nondistended. No abdominal bruit or pulsatile masses. No hepatosplenomegaly Extremities: No peripheral edema, no signs of gross trauma or deformity. Active full range of motion of all extremities. Neuro: Cranial nerves II through XII intact, no focal neurological deficits. Skin: Clean dry and intact with no rash, purpura, petechiae, vesicles or pustules. Backs/flank: No CVA tenderness, no midline spinal tenderness, no deformity. Psych: Normal mood and affect. No SI, HI or acute psychosis. Const Vital Signs: 02/16/23 14:10 02/16/23 14:14 02/16/23 14:14 Temperature 98.1 F Temperature Source Temporal Pulse Rate 120 H Respiratory Rate 26 H Respiratory Effort Respiratory Pattern Blood Pressure 131/77 H Blood Pressure Mean 95 Pulse Ox 88 94 94 Oxygen Delivery Method Nasal Cannula Nasal Cannula Nasal Cannula Oxygen Flow Rate (L/min) 5 5 5 02/16/23 14:17 02/16/23 15:13 02/16/23 15:12 Temperature 98.3 F Temperature Source Oral Pulse Rate 83 Respiratory Rate 18 Respiratory Effort Short of Breath Respiratory Pattern Tachypnea Blood Pressure 121/56 H Blood Pressure Mean 77 Pulse Ox 95 95 Oxygen Delivery Method Nasal Cannula Nasal Cannula Oxygen Flow Rate (L/min) 4 4 02/16/23 15:23 02/16/23 15:30 02/16/23 15:42 Temperature Temperature Source Pulse Rate Respiratory Rate 50 H Respiratory Effort Respiratory Pattern Blood Pressure Blood Pressure Mean Pulse Ox 92 94 Oxygen Delivery Method Oxygen Flow Rate (L/min) 02/16/23 15:43 02/16/23 15:45 02/16/23 15:50 Temperature Temperature Source Pulse Rate 83 80 84 Respiratory Rate 25 H 24 H 16 Respiratory Effort Respiratory Pattern Blood Pressure 125/59 H 124/62 H Blood Pressure Mean 79 80 Pulse Ox 95 93 Oxygen Delivery Method Room Air Oxygen Flow Rate (L/min) 4 02/16/23 17:00 02/16/23 17:11 02/16/23 16:00 Temperature 98.7 F 98.7 F Temperature Source Oral Oral Pulse Rate 91 82 83 Respiratory Rate 21 H 20 H 17 Respiratory Effort Respiratory Pattern Blood Pressure 106/50 L 115/57 L 121/56 H Blood Pressure Mean 68 76 76 Pulse Ox 95 96 95 Oxygen Delivery Method Nasal Cannula Nasal Cannula Oxygen Flow Rate (L/min) 4 4 02/16/23 16:10 02/16/23 16:15 02/16/23 16:20 Temperature Temperature Source Pulse Rate 83 83 94 Respiratory Rate 21 H 19 H 21 H Respiratory Effort Respiratory Pattern Blood Pressure 112/64 Blood Pressure Mean 78 Pulse Ox 94 94 Oxygen Delivery Method Oxygen Flow Rate (L/min) 02/16/23 16:30 02/16/23 16:40 02/16/23 16:45 Temperature Temperature Source Pulse Rate 76 75 73 Respiratory Rate 22 H 19 H 27 H Respiratory Effort Respiratory Pattern Blood Pressure 117/52 L 106/50 L Blood Pressure Mean 68 65 Pulse Ox 93 94 97 Oxygen Delivery Method Nasal Cannula Oxygen Flow Rate (L/min) 4 02/16/23 16:50 02/16/23 17:00 02/16/23 17:10 Temperature Temperature Source Pulse Rate 73 80 84 Respiratory Rate 31 H 24 H 24 H Respiratory Effort Respiratory Pattern Blood Pressure Blood Pressure Mean Pulse Ox 98 98 95 Oxygen Delivery Method Nasal Cannula Oxygen Flow Rate (L/min) 4 02/16/23 17:11 02/16/23 17:16 02/16/23 17:20 Temperature Temperature Source Pulse Rate 89 82 78 Respiratory Rate 26 H 23 H 25 H Respiratory Effort Respiratory Pattern Blood Pressure 115/57 L Blood Pressure Mean 73 96 Pulse Ox 95 94 96 Oxygen Delivery Method Oxygen Flow Rate (L/min) 02/16/23 17:30 02/16/23 17:40 02/16/23 17:45 Temperature Temperature Source Pulse Rate 82 83 Respiratory Rate 23 H 13 Respiratory Effort Respiratory Pattern Blood Pressure 115/64 117/61 Blood Pressure Mean 77 78 Pulse Ox 94 95 Oxygen Delivery Method Nasal Cannula Oxygen Flow Rate (L/min) 4 <Dr. Ryder Ross MD - Last Filed: 02/18/23 14:44> Physical Exam Const Vital Signs: 02/16/23 14:10 02/16/23 14:14 02/16/23 14:14 Temperature 98.1 F Temperature Source Temporal Pulse Rate 120 H Respiratory Rate 26 H Respiratory Effort Respiratory Pattern Blood Pressure 131/77 H Blood Pressure Mean 95 Pulse Ox 88 94 94 Oxygen Delivery Method Nasal Cannula Nasal Cannula Nasal Cannula Oxygen Flow Rate (L/min) 5 5 5 02/16/23 14:17 02/16/23 15:13 02/16/23 15:12 Temperature 98.3 F Temperature Source Oral Pulse Rate 83 Respiratory Rate 18 Respiratory Effort Short of Breath Respiratory Pattern Tachypnea Blood Pressure 121/56 H Blood Pressure Mean 77 Pulse Ox 95 95 Oxygen Delivery Method Nasal Cannula Nasal Cannula Oxygen Flow Rate (L/min) 4 4 02/16/23 15:23 02/16/23 15:30 02/16/23 15:42 Temperature Temperature Source Pulse Rate Respiratory Rate 50 H Respiratory Effort Respiratory Pattern Blood Pressure Blood Pressure Mean Pulse Ox 92 94 Oxygen Delivery Method Oxygen Flow Rate (L/min) 02/16/23 15:43 02/16/23 15:45 02/16/23 15:50 Temperature Temperature Source Pulse Rate 83 80 84 Respiratory Rate 25 H 24 H 16 Respiratory Effort Respiratory Pattern Blood Pressure 125/59 H 124/62 H Blood Pressure Mean 79 80 Pulse Ox 95 93 Oxygen Delivery Method Room Air Oxygen Flow Rate (L/min) 4 02/16/23 17:00 02/16/23 17:11 02/16/23 16:00 Temperature 98.7 F 98.7 F Temperature Source Oral Oral Pulse Rate 91 82 83 Respiratory Rate 21 H 20 H 17 Respiratory Effort Respiratory Pattern Blood Pressure 106/50 L 115/57 L 121/56 H Blood Pressure Mean 68 76 76 Pulse Ox 95 96 95 Oxygen Delivery Method Nasal Cannula Nasal Cannula Oxygen Flow Rate (L/min) 4 4 02/16/23 16:10 02/16/23 16:15 02/16/23 16:20 Temperature Temperature Source Pulse Rate 83 83 94 Respiratory Rate 21 H 19 H 21 H Respiratory Effort Respiratory Pattern Blood Pressure 112/64 Blood Pressure Mean 78 Pulse Ox 94 94 Oxygen Delivery Method Oxygen Flow Rate (L/min) 02/16/23 16:30 02/16/23 16:40 02/16/23 16:45 Temperature Temperature Source Pulse Rate 76 75 73 Respiratory Rate 22 H 19 H 27 H Respiratory Effort Respiratory Pattern Blood Pressure 117/52 L 106/50 L Blood Pressure Mean 68 65 Pulse Ox 93 94 97 Oxygen Delivery Method Nasal Cannula Oxygen Flow Rate (L/min) 4 02/16/23 16:50 02/16/23 17:00 02/16/23 17:10 Temperature Temperature Source Pulse Rate 73 80 84 Respiratory Rate 31 H 24 H 24 H Respiratory Effort Respiratory Pattern Blood Pressure Blood Pressure Mean Pulse Ox 98 98 95 Oxygen Delivery Method Nasal Cannula Oxygen Flow Rate (L/min) 4 02/16/23 17:11 02/16/23 17:16 02/16/23 17:20 Temperature Temperature Source Pulse Rate 89 82 78 Respiratory Rate 26 H 23 H 25 H Respiratory Effort Respiratory Pattern Blood Pressure 115/57 L Blood Pressure Mean 73 96 Pulse Ox 95 94 96 Oxygen Delivery Method Oxygen Flow Rate (L/min) 02/16/23 17:30 02/16/23 17:40 02/16/23 17:45 Temperature Temperature Source Pulse Rate 82 83 Respiratory Rate 23 H 13 Respiratory Effort Respiratory Pattern Blood Pressure 115/64 117/61 Blood Pressure Mean 77 78 Pulse Ox 94 95 Oxygen Delivery Method Nasal Cannula Oxygen Flow Rate (L/min) 4 MDM <NOLAN Martinez - Last Filed: 02/16/23 16:03> [facility] Lab Data Attestation: I reviewed the patient's lab results. Labs: Laboratory Results - last 24 hr 02/16/23 02/16/23 14:32 15:39 WBC 9.1 RBC 4.65 Hgb 12.8 Hct 39.1 MCV 84.1 MCH 27.5 MCHC 32.7 RDW Std Deviation 43.3 RDW Coeff of Ozzie 14.0 Plt Count 366 MPV 9.2 Immature Gran % (Auto) 1.200 H Neut % (Auto) 74.9 H Lymph % (Auto) 14.9 L [place] % (Auto) 6.8 Eos % (Auto) 1.8 Baso % (Auto) 0.4 Absolute Neuts (auto) 6.9 Absolute Lymphs (auto) 1.36 Nucleated RBC % 0 Sodium 135 L Potassium 2.7 L* Chloride 94 L Carbon Dioxide 37.0 H Anion Gap 4 L BUN 13 Creatinine 0.81 Estim Creat Clear Calc 41.10 Est GFR (MDRD) Af Amer 87 Est GFR (MDRD) Non-Af 72 BUN/Creatinine Ratio 16.0 Glucose 127 H Calcium 9.1 Troponin I High Sens 24 Urine Color Yellow Urine Clarity Cloudy Urine pH 6.0 Ur Specific [place] 1.015 Urine Protein 100 H Urine Glucose (UA) Normal Urine Ketones 5 H Urine Occult Blood 250 H Urine Nitrite Negative Urine Bilirubin 1 H Urine Urobilinogen 8 H Ur Leukocyte Esterase 25 H Urine RBC 25-50 SEEN Urine WBC 25-50 SEEN Ur Squamous Epith Cells 5-10 SEEN Urine Bacteria 4+ Urine Mucus 0 SEEN Radiography Diagnostic Testing: Clinical Impression(s) from Imaging Studies Chest X-Ray 02/16/23 15:10 IMPRESSION: Cardiomegaly with new opacities in both lower lobes, right greater than left, compatible with early/developing pneumonia. Follow-up chest imaging to resolution recommended. Electronically Signed: Eriberto Kothari MD at 15:26 EDT , EKG Normal sinus rhythm: Attestation: I personally reviewed and interpreted this EKG as follows: Comments: Normal sinus rhythm shows a heart rate of 85 bpm, AR interval 174 ms, QRS duration 146 ms, no acute ST elevation, no acute infarct noted. Treatment and Re-Evaluation :: Patient on initial arrival was in slight respiratory distress, patient was hypoxic with low 80s on room air. Patient is maintaining 94% on 4 L. Patient did receive a septic work-up secondary to the patient's tachycardia, diminished lung sounds. Patient's laboratory values showed a normal CBC, patient's neutrophils were 74.9 slightly elevated. Patient's chemistries showed a low potassium at 2.7 this is critically low. Patient did receive a two-view chest x-ray concerning for pneumonia, this showed cardiomegaly with new opacities in both lower lobes. Right greater than the left compatible with early/developing pneumonia. Patient be started on IV Zosyn, Rocephin. Patient will need to be admitted to the hospital. Patient potassium was replaced orally. Patient's rapid COVID, influenza is negative. Patient be admitted to the hospitalist. All questions answered, patient is made aware, patient stable for discharge. <Dr. Ryder Ross MD - Last Filed: 02/18/23 14:44> [facility] Narrative Medical decision making narrative: I have personally performed a face to face assessment of the patient and have reviewed the BRITTANIE Note. I performed a substantive portion of the visit including all aspects of the following. My lee findings include: History is patient presents with shortness of breath, productive cough. Patient denies fever or chills. Patient does complain of dyspnea on exertion. Patient is not on oxygen at home. She is status post lobectomy on the right in 2016. Exam is patient is tachycardic and tachypneic. She is not febrile. She is hypoxic. Patient has abnormal breath sounds bilaterally with egophony on the right. Lower extremity exam is unremarkable. There is no discoloration, asymmetry, leg vein distention, palpable cords or tenderness on the distribution deep venous system. Medical Decision Making frontal diagnosis include congestive heart failure, pneumonia, pneumothorax, PE is unlikely in light of her respiratory infectious symptoms. Other additions or changes: Chest x-ray per my Navinta review and read reveals a right lower lobe pneumonia compared to x-ray June 2022. Patient was treated for commune acquired pneumonia with Rocephin and Zithromycin. She does have a lactic acidosis. Case was discussed with the hospitalist and will admit. Lab Data Labs: Laboratory Results - last 24 hr 02/16/23 02/16/23 14:32 15:39 WBC 9.1 RBC 4.65 Hgb 12.8 Hct 39.1 MCV 84.1 MCH 27.5 MCHC 32.7 RDW Std Deviation 43.3 RDW Coeff of Ozzie 14.0 Plt Count 366 MPV 9.2 Immature Gran % (Auto) 1.200 H Neut % (Auto) 74.9 H Lymph % (Auto) 14.9 L [place] % (Auto) 6.8 Eos % (Auto) 1.8 Baso % (Auto) 0.4 Absolute Neuts (auto) 6.9 Absolute Lymphs (auto) 1.36 Nucleated RBC % 0 Sodium 135 L Potassium 2.7 L* Chloride 94 L Carbon Dioxide 37.0 H Anion Gap 4 L BUN 13 Creatinine 0.81 Estim Creat Clear Calc 41.10 Est GFR (MDRD) Af Amer 87 Est GFR (MDRD) Non-Af 72 BUN/Creatinine Ratio 16.0 Glucose 127 H Calcium 9.1 Troponin I High Sens 24 Urine Color Yellow Urine Clarity Cloudy Urine pH 6.0 Ur Specific [place] 1.015 Urine Protein 100 H Urine Glucose (UA) Normal Urine Ketones 5 H Urine Occult Blood 250 H Urine Nitrite Negative Urine Bilirubin 1 H Urine Urobilinogen 8 H Ur Leukocyte Esterase 25 H Urine RBC 25-50 SEEN Urine WBC 25-50 SEEN Ur Squamous Epith Cells 5-10 SEEN Urine Bacteria 4+ Urine Mucus 0 SEEN Radiography Chest X-Ray - ED: 2 View and Read by ED Physician (Documented under the MD portion of the EMR) Diagnostic Testing: Clinical Impression(s) from Imaging Studies Chest X-Ray 02/16/23 15:10 IMPRESSION: Cardiomegaly with new opacities in both lower lobes, right greater than left, compatible with early/developing pneumonia. Follow-up chest imaging to resolution recommended. Electronically Signed: Eriberto Kothari MD at 15:26 EDT , Management Discussion w/another healthcare provider: Hospitalist Discharge Plan Dx/Rx/DC Orders Clinical Impression: Community acquired pneumonia, SIRS (systemic inflammatory response syndrome), Hypoxia, Acute hypokalemia, Severe sepsis Disposition Disposition: Acute Care Hospital [facility] Discharge Date/Time: 02/16/23 18:38
[2023-02-16] MEDS: Potassium Chloride Oral Tablet 20 MEQ 40 MEQ PO (15:28)
[2023-02-16 15:50] LABS: Mucous, Urine 0 SEEN /hpf (<or=2+)
[2023-02-16 15:53] LABS: Color, Urine Yellow (Yellow); Glucose, Dipstick Normal (Normal); Ketone-Dipstick 5 mg/dl (Negative); Leukocyte Esterase-Dipstick 25 /ul (Negative); Nitrite-Dipstick Negative (Negative); Occult Blood-Urine 250 /ul (Negative); Protein-Dipstick 100 mg/dl (Negative); Specific Gravity, Urine 1.015 (1.002-1.030); Urine Clarity Cloudy (Clear); Urine Urobilinogen 8 mg/dl (Normal)
[2023-02-16 16:14] LABS: Urine Bilirubin Dipstick 1 mg/dL (Negative)
[2023-02-16 16:15] LABS: White Blood Cells 25-50 SEEN /hpf (0-5)
[2023-02-16 16:16] LABS: Bacteria 4+ /hpf (None Seen); Red Blood Cells-Urine 25-50 SEEN /hpf (0-5); Squamous Epithelial Cells - UA 5-10 SEEN /hpf (5-10)
[2023-02-16] MEDS: Ceftriaxone 1 GM/50 ML BAG IV (16:20)
--- NOTE | 2023-02-16 17:00 | HP.PCM.HOS_ITS ---
HPI - General General Date of Admission: 02/16/23 Date of Service: 02/16/23 Chief Complaint: Productive cough, shortness of breath HPI Narrative IRIS PENNY is a 82 F with history of lung cancer s/p right upper lobe lobectomy (2016), PE on Eliquis, hypertension and hyperlipidemia who presented to [facility] ED on 02/16/2023 with productive cough and worsening shortness of breath. Patient seen at bedside, son present. Patient lying comfortably in bed, conversing normally, no acute distress. Satting well on 4 L nasal cannula, no increased work of breathing noted. Patient lives at home by herself and states she was in a good state of health until about 1 week ago. At that time, she developed a productive cough along with generalized body aches and some fevers and chills. Symptoms worsened for a few days, and then seem to get a bit better. However, she noted that she remained fairly short of breath with exertion over the last few days. She also feels generally weaker than her baseline. She currently denies any fevers or chills. Denies any body aches. Continues to have productive cough with greenish sputum production. She denies any urinary symptoms. No other acute concerns. Patient does not note any known sick contacts, but did travel with her friends to [place] to go to the [facility] shortly before getting sick. Vitals on presentation were notable for respiration rate in the low 20s, O2 sats in the low 90s on 3 to 4 L nasal cannula, afebrile, normotensive, regular heart rate. Labs were notable for WBC count 9.1, hemoglobin 12.8, sodium 135, potassium 2.7, bicarb 37, creatinine 0.81. UA showed 25 leukocyte esterase, negative nitrites, 4+ bacteria, 25-50 white blood cells. Chest x-ray showed cardiomegaly with new opacities in both lower lobes, right greater than left compatible with an early/developing pneumonia. [facility] Medical History (Updated 02/16/23 @ 19:13 by Martha Esquivel) Anxiety Arthritis Back pain Cancer Cardiology follow-up encounter Coronary stenosis Depression Former smoker Heart disease Heartburn High cholesterol History of diverticulitis History of echocardiogram History of edema History of stress test Hypertension Loss of hearing Myocardial infarction Shortness of breath on exertion Wears glasses Wears partial dentures Home Medications metoprolol tartrate 50 mg tablet (Lopressor) 25 mg PO BID bp 04/27/14 [History Last Taken 02/16/23] atorvastatin 10 mg tablet 40 mg PO QHS cholesterol 07/21/17 [History Last Taken 02/15/23] escitalopram oxalate 10 mg tablet (Lexapro) 10 mg PO DAILY mood 06/21/22 [History Last Taken 02/15/23] loratadine 10 mg tablet 10 mg PO DAILY PRN allergies 06/30/22 [History Last Taken 02/16/23] apixaban 5 mg (74 tabs) tablets in a dose pack (EliquGrabhouse DVT-PE Treat 30D Start) 10 mg (2 x 5 mg (74 tabs)) PO BID #74 tabs 07/01/22 [Rx Last Taken 02/16/23] Allergy/AdvReac Type Severity Reaction Status Date / Time No Known Allergies Allergy Verified 02/16/23 18:32 Family History Mother Colon cancer Father Myocardial infarction Surgical History History of lobectomy of lung Hx of eye surgery Hx of right cataract extraction Lung cancer Social History (Updated 06/30/22 @ 17:[address] Mary Meredith DO) housing: house Smoking Status: Former smoker alcohol intake: never substance use type: does not use ROS Constitutional Constitutional: Reports fatigue and weakness; Denies chills or fever(s) Eyes Eyes: Denies change in vision Cardiovascular Cardiovascular: Reports dyspnea on exertion; Denies chest pain, edema or lightheadedness Respiratory/Chest Respiratory/Chest: Reports productive cough Gastrointestinal Gastrointestinal: Denies abdominal pain Genitourinary Genitourinary: Denies dysuria Vital Signs Vital Signs Vital Signs: 02/16/23 14:10 02/16/23 14:14 02/16/23 14:14 Temperature 98.1 F Temperature Source Temporal Pulse Rate 120 H Respiratory Rate 26 H Respiratory Effort Respiratory Pattern Blood Pressure 131/77 H Blood Pressure Mean 95 Pulse Ox 88 94 94 Oxygen Delivery Method Nasal Cannula Nasal Cannula Nasal Cannula Oxygen Flow Rate (L/min) 5 5 5 02/16/23 14:17 02/16/23 15:13 02/16/23 15:12 Temperature 98.3 F Temperature Source Oral Pulse Rate 83 Respiratory Rate 18 Respiratory Effort Short of Breath Respiratory Pattern Tachypnea Blood Pressure 121/56 H Blood Pressure Mean 77 Pulse Ox 95 95 Oxygen Delivery Method Nasal Cannula Nasal Cannula Oxygen Flow Rate (L/min) 4 4 02/16/23 15:23 02/16/23 15:30 02/16/23 15:42 Temperature Temperature Source Pulse Rate Respiratory Rate 50 H Respiratory Effort Respiratory Pattern Blood Pressure Blood Pressure Mean Pulse Ox 92 94 Oxygen Delivery Method Oxygen Flow Rate (L/min) 02/16/23 15:43 02/16/23 15:45 02/16/23 15:50 Temperature Temperature Source Pulse Rate 83 80 84 Respiratory Rate 25 H 24 H 16 Respiratory Effort Respiratory Pattern Blood Pressure 125/59 H 124/62 H Blood Pressure Mean 79 80 Pulse Ox 95 93 Oxygen Delivery Method Room Air Oxygen Flow Rate (L/min) 4 Weight Weight: 64.229 kg Body Mass Index (BMI) 26.7 Physical Exam Const alert and oriented x3 Constitutional Narrative: Pleasant elderly female, sitting up in the bed, conversing normally, no acute di stress. No increased work of breathing on 4 L nasal cannula. General Appearance: cooperative and comfortable HEENT normocephalic, head/scalp atraumatic, hearing grossly normal bilaterally, nasal mucous membranes and turbinates normal and moist oral mucous membranes Eyes PERRL, EOMs intact bilaterally and conjunctivae normal Neck full ROM, no lymphadenopathy and supple Lymph Lymphatic: no lymphadenopathy noted Chest inspection of chest normal Resp normal respiratory effort Resp Narrative: Good air movement bilaterally. No wheezing noted in upper airways. Bilateral crackles noted at lung bases. Cardio regular rate, regular rhythm, no murmurs and peripheral pulses 2+ throughout GI normal to inspection, nondistended, normoactive bowel sounds, soft to palpation, non-tender and non-distended Back/Spine normal ROM Extremity normal to inspection, full ROM and no pedal edema Skin no rashes or lesions noted Psych mental status grossly normal Results Lab / Micro Data 02/16/23 14:32 02/16/23 14:32 Labs: Laboratory Results - last 24 hr 02/16/23 14:32: WBC 9.1, RBC 4.65, Hgb 12.8, Hct 39.1, MCV 84.1, MCH 27.5, MCHC 32.7, RDW Std Deviation 43.3, RDW Coeff of Ozzie 14.0, Plt Count 366, MPV 9.2, Immature Gran % (Auto) 1.200 H, Neut % (Auto) 74.9 H, Lymph % (Auto) 14.9 L, [place] % (Auto) 6.8, Eos % (Auto) 1.8, Baso % (Auto) 0.4, Absolute Neuts (auto) 6.9, Absolute Lymphs (auto) 1.36, Nucleated RBC % 0, Sodium 135 L, Potassium 2.7 L*, Chloride 94 L, Carbon Dioxide 37.0 H, Anion Gap 4 L, BUN 13, Creatinine 0.81, Estim Creat Clear Calc 41.10, Est GFR (MDRD) Af Amer 87, Est GFR (MDRD) Non-Af 72, BUN/Creatinine Ratio 16.0, Glucose 127 H, Calcium 9.1, Troponin I High Sens 24 02/16/23 15:39: Urine Color Yellow, Urine Clarity Cloudy, Urine pH 6.0, Ur Specific [place] 1.015, Urine Protein 100 H, Urine Glucose (UA) Normal, Urine Ketones 5 H, Urine Occult Blood 250 H, Urine Nitrite Negative, Urine Bilirubin 1 H, Urine Urobilinogen 8 H, Ur Leukocyte Esterase 25 H, Urine RBC 25-50 SEEN, Urine WBC 25-50 SEEN, Ur Squamous Epith Cells 5-10 SEEN, Urine Bacteria 4+, Urine Mucus 0 SEEN Micro: Microbiology 02/16/23 15:20 Nasal Secretion SARS-CoV-2 & FLU Antigen (Rapid) - Final 02/16/23 14:32 Nasal Secretion SARS-CoV-2 Antigen (Rapid) - Final Radiology Impression Chest X-Ray 02/16/23 15:10 IMPRESSION: Cardiomegaly with new opacities in both lower lobes, right greater than left, compatible with early/developing pneumonia. Follow-up chest imaging to resolution recommended. Electronically Signed: Eriberto Kothari MD at 15:26 EDT , Assessment & Plan Assessment/Plan (1) Community acquired pneumonia: PLAN: Plan Patient is an 82-year-old female with history of lung cancer s/p right upper lobe lobectomy (2016), PE on Eliquis, hypertension and hyperlipidemia who p resented to [facility] ED on 02/16/2023 with productive cough and worsening shortness of breath. 1. Acute on chronic hypoxic and hypercapnic respiratory failure, community- acquired pneumonia unclear organism Patient mildly hypoxic in setting of suspected community-acquired pneumonia. Does not use home oxygen. Suspect patient has some degree of chronic lung disease given bicarbonate of 37 on admission showing appropriate compensation for chronic hypercapnia. Chest x-ray showed bilateral pneumonia, worse in the right lower lobe as noted above. Vital stable, no concern for sepsis at this time. - Will treat with ceftriaxone and azithromycin for now. Blood cultures, sputum culture, urine antigens, full respiratory PCR panel pending. COVID and flu negative in the ED. Will likely need room air walk test prior to discharge. 2. Concern for UTI ? UA on admission showed as noted above. Patient denies any urinary symptoms does have a history of UTIs. Treating with ceftriaxone as above. Urinary cultures pending. 3. Mild debility ? Lives at home by herself and is quite functional at baseline per patient and son's report. PT/OT/case management consulted. 4. Hypokalemia ? Unclear etiology. Potassium 2.7, replete as needed. Check magnesium and phosphorus. 5. Hypertension ? Continue home Lopressor. 6. Hyperlipidemia ? Continue home atorvastatin. 7. Depression ? Stable. Continue home Lexapro. 8. History of PE ? Continue home Eliquis. DVT prophylaxis: Eliquis CODE STATUS: Full code, verified Expected disposition: Home, 2 to 3 days Total clinical time spent by myself addressing the patient's medical issues, reviewing all the data, and collaborating with patient's care team: 55 minutes. Charges/Coding Visit Charges Inpatient E&M: 57526 Init Hosp L2
[2023-02-16] MEDS: Atorvastatin Calcium 40 MG Tablet PO (21:43)
[2023-02-16 21:44] LABS: Magnesium 2.3 mg/dL (1.6-2.6); Phosphorus 3.2 mg/dL (2.5-4.9)
[2023-02-16] MEDS: APIXABAN 5 MG TABLET PO (21:44)
[2023-02-17] VITALS (9 sets, daily range): BP systolic 100–125; BP diastolic 47–80; PULSE 70–99; RESP 18–20; TEMP 36.6–36.9; O2SAT 92–98
[2023-02-17] MEDS: Metoprolol Tartrate 25 MG Tablet PO ×3 (00:12→22:16)
[2023-02-17] MEDS: Escitalopram Oxalate 10 MG Tablet PO (08:47)
[2023-02-17] MEDS: APIXABAN 5 MG TABLET PO ×2 (08:47→22:16)
--- NOTE | 2023-02-17 08:50 | PN.HOSP_ITS ---
Reason for Visit Reason for Visit: Diagnoses Pneumonia, unspecified organism (02/16/23) Subjective Subjective Patient beginning to feel better than she had been, reports prior to getting sick this time around she was feeling well with no acute complaints and this hit her fairly quick and hard, not back to baseline significantly improved. Objective Data Objective Data Vital Signs: Vital Signs Temp Pulse Resp BP Pulse Ox O2 Del Method O2 Flow Rate 98 F 73 19 H 107/70 98 Nasal Cannula 4 02/17/23 08:43 02/17/23 08:47 02/17/23 08:43 02/17/23 08:43 02/17/23 08:43 02/17/23 08:43 02/17/23 08:43 Oxygen Flow Rate (L/min) 4 Oxygen Delivery Method Nasal Cannula Weight: 64.4 kg Body Mass Index (BMI) 26.8 Intake & Output: Intake and Output for Last 24 Hours 02/15/23 02/16/23 02/17/23 23:59 23:59 23:59 Intake Total 705 / 705 365.5 / 365.5 Balance 705 / 705 365.5 / 365.5 Lab / Micro Data 02/16/23 14:32 02/16/23 14:32 Labs: Laboratory Results - last 24 hr 02/16/23 14:32: WBC 9.1, RBC 4.65, Hgb 12.8, Hct 39.1, MCV 84.1, MCH 27.5, MCHC 32.7, RDW Std Deviation 43.3, RDW Coeff of Ozzie 14.0, Plt Count 366, MPV 9.2, Immature Gran % (Auto) 1.200 H, Neut % (Auto) 74.9 H, Lymph % (Auto) 14.9 L, [place] % (Auto) 6.8, Eos % (Auto) 1.8, Baso % (Auto) 0.4, Absolute Neuts (auto) 6.9, Absolute Lymphs (auto) 1.36, Nucleated RBC % 0, Sodium 135 L, Potassium 2.7 L*, Chloride 94 L, Carbon Dioxide 37.0 H, Anion Gap 4 L, BUN 13, Creatinine 0.81, Estim Creat Clear Calc 41.10, Est GFR (MDRD) Af Amer 87, Est GFR (MDRD) Non-Af 72, BUN/Creatinine Ratio 16.0, Glucose 127 H, Calcium 9.1, Phosphorus 3.2, Magnesium 2.3, Troponin I High Sens 24 02/16/23 15:39: Urine Color Yellow, Urine Clarity Cloudy, Urine pH 6.0, Ur Specific [place] 1.015, Urine Protein 100 H, Urine Glucose (UA) Normal, Urine Ketones 5 H, Urine Occult Blood 250 H, Urine Nitrite Negative, Urine Bilirubin 1 H, Urine Urobilinogen 8 H, Ur Leukocyte Esterase 25 H, Urine RBC 25-50 SEEN, Urine WBC 25-50 SEEN, Ur Squamous Epith Cells 5-10 SEEN, Urine Bacteria 4+, Urine Mucus 0 SEEN Micro: Microbiology 02/17/23 07:18 Urine, Clean Catch Legionella Antigen - Final 02/17/23 07:18 Urine, Clean Catch Streptococcus pneumoniae Antigen (M - Final 02/16/23 19:45 Mucosa - Nasopharyngeal Respiratory Panel (PCR) - Final 02/16/23 15:20 Nasal Secretion SARS-CoV-2 & FLU Antigen (Rapid) - Final 02/16/23 14:32 Nasal Secretion SARS-CoV-2 Antigen (Rapid) - Final Radiography Diagnostic Testing: Radiology Impression Chest X-Ray 02/16/23 15:10 IMPRESSION: Cardiomegaly with new opacities in both lower lobes, right greater than left, compatible with early/developing pneumonia. Follow-up chest imaging to resolution recommended. Electronically Signed: Eriberto Kothari MD at 15:26 EDT , Physical Exam Narrative General: Alert, oriented, no apparent distress HEENT: Atraumatic, normocephalic Eyes: Anicteric, normal conjunctiva, extraocular movements grossly intact Neck: Supple Respiratory: Diffuse wheezes diffuse wheezes, normal respiratory effort Cardiovascular: Regular rate and rhythm GI: Soft, nontender, nondistended Extremities: No edema Musculoskeletal: Moving all extremities Neuro: No overt focal neurological deficits, head tremor which she reports is chronic Skin: No rashes appreciated Psych: Cooperative Assessment & Plan Assessment/Plan (1) Community acquired pneumonia: PLAN: Plan Patient is an 82-year-old female with history of lung cancer s/p right upper lobe lobectomy (2016), PE on Eliquis, hypertension and hyperlipidemia who presented to [facility] ED on 02/16/2023 with productive cough and worsening shortness of breath. #Acute on chronic hypoxic and hypercapnic respiratory failure, community- acquired pneumonia unclear organism, in setting of chronic COPD Patient mildly hypoxic in setting of suspected community-acquired pneumonia. Does not use home oxygen. Suspect patient has some degree of chronic lung disease given bicarbonate of 37 on admission showing appropriate compensation for chronic hypercapnia. Chest x-ray showed bilateral pneumonia, worse in the right lower lobe as noted above. Vital stable, no concern for sepsis at this time. - Will treat with ceftriaxone and azithromycin for now. Blood cultures, sputum culture, urine antigens, full respiratory PCR panel pending. COVID and flu negative in the ED. Will likely need room air walk test prior to discharge. -02/17: O2 sat improved to 98% on 4 L, wean O2. Patient improved significantly with just antibiotics and supportive care however PFTs in 2014 did show moderately severe large airway obstructive ventilatory defect with significant response to bronchodilators. Unclear why she is not on home inhalers, may benefit from that going forward. We will add nebs. Likely DC home in next 1 to 2 days given her improvement, wean O2 #Concern for UTI ? UA on admission concerning for UTI. Patient denies any urinary symptoms does have a history of UTIs. Treating with ceftriaxone as above. Urinary cultures pending. -02/17: Cultures pending, continue Rocephin #Mild debility ? Lives at home by herself and is quite functional at baseline per patient and son's report. PT/OT/case management consulted. #Hypokalemia ? Unclear etiology. Potassium 2.7, replete as needed. Check magnesium and phosphorus. #Hypertension ? Continue home Lopressor. #Hyperlipidemia ? Continue home atorvastatin. #Depression ? Stable. Continue home Lexapro. #History of PE ? Continue home Eliquis. DVT prophylaxis: Eliquis CODE STATUS: Full code, verified Expected disposition: Home, 2 to 3 days Charges/Coding Visit Charges Inpatient E&M: 32163 Subs Hosp L2
--- NOTE | 2023-02-17 10:50 | CASEMGMT ---
SHAUN BEDOYA DC Planning Assessment: Face to Face with patient for initial transition planning/care coordination assessment.?SHAUN BEDOYA introduced self and role at [facility], pt alert, answering questions appropriately, voices understanding and is agreeable to participating in assessment.? Care providers, pharmacy,?and demographics verified. ? Admitting Dx: Pneumonia PCP: Sesar Specialists: Maria G (urology), Juana (Cardiology) Preferred Pharmacy: [facility] Insurance: [facility] A/B, [employer] Plan Prescription Benefit: no, pt has been self paying for her medications including the Eliquis. Pt states her make up man's office is working getting her assistance with this cost as it is $800 each refill. LNOK: daughter Jerrica and son Chan Living Arrangements: Pt lives alone in a two story home with a FFSU and denies any issues with the stairs. PT states she is independent with ADLs and regularly works out at [employer] including pool exercises. Transportation: pt drives self and denies any concerns with transportation DME: Pt states she does not currently have any O2 but has had home O2 from [facility] in the past. States she just returned this equipment 6months ago. If home O2 is needed at discharge she prefers to use [facility] again to supply. HHC/SNF: pt denies any previous providers Plan: Pt plans to return home at discharge and denies any needs at this time. Will monitor for home O2 needs at discharge. Green sheet on chart if pt dc'd over the weekend. Stella Velazquez RN CM
[2023-02-17] MEDS: 0.9% Saline Lock 10 ML Syringe IV (11:09)
[2023-02-17] MEDS: Ceftriaxone 1 GM/50 ML BAG IV (11:10)
[2023-02-17] MEDS: Ipratropium/Albuterol Sulfate 3 ML AMPUL.NEB INHALATION ×2 (13:04→19:27)
[2023-02-17] MEDS: Atorvastatin Calcium 40 MG Tablet PO (22:16)
[2023-02-18] VITALS (15 sets, daily range): BP systolic 99–131; BP diastolic 46–68; PULSE 63–88; RESP 17–20; TEMP 36.4–36.7; O2SAT 91–97
[2023-02-18 06:53] LABS: Absolute Lymphocyte Count 1.32 X10^3/uL (0.83-4.51); Absolute Neutrophil Count 6.5 X10^3/uL (2.0-7.7); Basophil# 0.03 X10^3/uL; Basophil% 0.3 % (0-1); Eosinophils% 2.3 % (0-5); Hematocrit 35.1 % (37-47); Hemoglobin 11.4 g/dL (12.0-15.0); Lymphocyte # 1.32 X10^3/ul (0.83-4.51); Lymphocyte % 15.2 % (19-41); Mean Corp Hgb Conc 32.5 g/dL (32-36); Mean Corpuscular Hgb 28.1 pg (27.0-32.0); Mean Corpuscular Volume 86.5 fL (81-99); Mean Platelet Vol. 9.3 fl (6.2-12.0); Monocyte# 0.54 X10^3/uL; Monocyte% 6.2 % (0-10); NRBC Flagged by Analyzer 0 % (0-5); Neutrophil # 6.54 X10^3/uL (2.7-7.7); Neutrophil % 75.1 % (47-70); Platelet Count 360 K/mm3 (150-450); RBC Distribution Width CV 14.3 % (11.6-14.6); RBC Distribution Width SD 45.3 fl (35.1-43.9); Red Blood Count 4.06 M/mm3 (4.2-5.4); White Blood Count 8.7 K/mm3 (4.4-11.0)
[2023-02-18] MEDS: Ipratropium/Albuterol Sulfate 3 ML AMPUL.NEB INHALATION ×2 (06:54→19:33)
[2023-02-18 07:33] LABS: Anion Gap 2 (5-15); BUN 10 mg/dL (7-18); BUN/Creat Ratio 18.7 RATIO (10-20); Calcium,Total 8.5 mg/dL (8.5-10.1); Chloride 97 mmol/L (98-107); Creatinine, Serum 0.54 mg/dL (0.55-1.02); EST Glomerular Filtration Rate 116 mL/min (>60); Est Glom Filt Rate - Afr Amer 140 mL/min (>60); Estimated Creatinine Clearance 33.29 ml/min; Glucose 102 mg/dL (74-106); Potassium 2.7 mmol/L (3.5-5.1); Sodium Level 136 mmol/L (136-145)
--- NOTE | 2023-02-18 08:19 | PCM.PN.HOSP ---
Reason for Visit Reason for Visit: Diagnoses Pneumonia, unspecified organism (02/16/23) Subjective Subjective Patient still requiring O2, has had some cough, feeling better than she had been overall, denies any swelling in her legs Objective Data Objective Data Vital Signs: Vital Signs Temp Pulse Resp BP Pulse Ox O2 Del Method O2 Flow Rate 98.1 F 75 18 108/52 L 91 Nasal Cannula 4 02/18/23 03:10 02/18/23 06:55 02/18/23 06:55 02/18/23 03:10 02/18/23 06:55 02/18/23 07:50 02/18/23 07:50 Oxygen Flow Rate (L/min) 4 Oxygen Delivery Method Nasal Cannula Weight: 64.4 kg Body Mass Index (BMI) 26.8 Intake & Output: Intake and Output for Last 24 Hours 02/16/23 02/17/23 02/18/23 23:59 23:59 23:59 Intake Total 705 / 705 1420.5 / 1520.5 220 / 220 Balance 705 / 705 1420.5 / 1520.5 220 / 220 Lab / Micro Data 02/18/23 05:50 02/18/23 12:00 Labs: Laboratory Results - last 24 hr 02/18/23 05:50: WBC 8.7, RBC 4.06 L, Hgb 11.4 L, Hct 35.1 L, MCV 86.5, MCH 28.1, MCHC 32.5, RDW Std Deviation 45.3 H, RDW Coeff of Ozzie 14.3, Plt Count 360, MPV 9.3, Immature Gran % (Auto) 0.900, Neut % (Auto) 75.1 H, Lymph % (Auto) 15.2 L, [place] % (Auto) 6.2, Eos % (Auto) 2.3, Baso % (Auto) 0.3, Absolute Neuts (auto) 6.5, Absolute Lymphs (auto) 1.32, Nucleated RBC % 0, Sodium 136, Potassium 2.7 L*, Chloride 97 L, Carbon Dioxide 37.0 H, Anion Gap 2 L, BUN 10, Creatinine 0.54 L, Estim Creat Clear Calc 33.29, Est GFR (MDRD) Af Amer 140, Est GFR (MDRD) Non-Af 116, BUN/Creatinine Ratio 18.7, Glucose 102, Calcium 8.5 Micro: Microbiology 02/16/23 15:39 Urine, Catheterized Urine Culture - Preliminary Presumptive E. coli 02/17/23 07:18 Urine, Clean Catch Legionella Antigen - Final 02/17/23 07:18 Urine, Clean Catch Streptococcus pneumoniae Antigen (M - Final 02/16/23 19:45 Mucosa - Nasopharyngeal Respiratory Panel (PCR) - Final 02/16/23 15:20 Nasal Secretion SARS-CoV-2 & FLU Antigen (Rapid) - Final 02/16/23 14:32 Nasal Secretion SARS-CoV-2 Antigen (Rapid) - Final Physical Exam Narrative General: Alert, oriented, no apparent distress HEENT: Atraumatic, normocephalic Eyes: Anicteric, normal conjunctiva, extraocular movements grossly intact Neck: Supple Respiratory: Wheezing improving, slight increased work of breathing Cardiovascular: Regular rate GI: Soft, nontender, nondistended Extremities: No edema Musculoskeletal: Moving all extremities Neuro: No overt focal neurological deficits, head tremor which she reports is chronic Skin: No rashes appreciated Psych: Cooperative Assessment & Plan Assessment/Plan (1) Community acquired pneumonia: PLAN: Plan Patient is an 82-year-old female with history of lung cancer s/p right upper lobe lobectomy (2016), PE on Eliquis, hypertension and hyperlipidemia who presented to [facility] ED on 02/16/2023 with productive cough and worsening shortness of breath. #Acute on chronic hypoxic and hypercapnic respiratory failure, community-acquired pneumonia unclear organism, in setting of chronic COPD Patient mildly hypoxic in setting of suspected community-acquired pneumonia. Does not use home oxygen. Suspect patient has some degree of chronic lung disease given bicarbonate of 37 on admission showing appropriate compensation for chronic hypercapnia. Chest x-ray showed bilateral pneumonia, worse in the right lower lobe as noted above. Vital stable, no concern for sepsis at this time. - Will treat with ceftriaxone and azithromycin for now. Blood cultures, sputum culture, urine antigens, full respiratory PCR panel pending. COVID and flu negative in the ED. Will likely need room air walk test prior to discharge. -02/17: O2 sat improved to 98% on 4 L, wean O2. Patient improved significantly with just antibiotics and supportive care however PFTs in 2014 did show moderately severe large airway obstructive ventilatory defect with significant response to bronchodilators. Unclear why she is not on home inhalers, may benefit from that going forward. We will add nebs. Likely DC home in next 1 to 2 days given her improvement, wean O2 -02/18: Urine antigens negative, respiratory panel and COVID/flu negative, patient on nebs and CAP coverage. Chest x-ray on admission demonstrated cardiomegaly with new opacities in both lower lobes right greater than left compatible with early/developing pneumonia and recommended follow-up chest imaging. Patient not on home O2 but still requiring 3 to 4 L to maintain sats in the 90s so chest x-ray rechecked as well as BNP. Chest x-ray appeared similar looking of the film but final read pending, BNP was within normal limits. Unclear reason for her continued hypoxia and infiltrates may just be pneumonia that is slow return around or may have component of COPD and she had PFTs in 2014 as above. Will give trial of steroids especially with wheezing. On Eliquis at home so unlikely PE, does not appear fluid overloaded and BNP wnl. If not improving may need chest CT #Concern for UTI ? UA on admission concerning for UTI. Patient denies any urinary symptoms does have a history of UTIs. Treating with ceftriaxone as above. Urinary cultures pending. -02/17: Cultures pending, continue Rocephin -02/18: Presumptive E. coli, continue antibiotics, awaiting sensitivities #Mild debility ? Lives at home by herself and is quite functional at baseline per patient and son's report. PT/OT/case management consulted. #Hypokalemia ? Unclear etiology. Potassium 2.7, replete as needed. Check magnesium and phosphorus. -02/18: Low again, will aggressively replete and check again this afternoon, mag and Phos had been within normal limits #Hypertension ? Continue home Lopressor. -02/18: Has been very well controlled #Hyperlipidemia ? Continue home atorvastatin. #Depression ? Stable. Continue home Lexapro. #History of PE ? Continue home Eliquis. DVT prophylaxis: Eliquis CODE STATUS: Full code, verified Expected disposition: Home, 2 to 3 days Charges/Coding Visit Charges Inpatient E&M: 22924 Subs Hosp L2
--- NOTE | 2023-02-18 08:20 | RAD_ITS ---
STUDY: X-RAY CHEST REASON FOR EXAM: Female, 82 years old. continued hypoxia TECHNIQUE: Single AP portable view of the chest. COMPARISON: 02/16/2023. FINDINGS: Bilateral lower lung dang atelectasis or infiltrate, grossly stable but possible minimal improvement on the right. Incomplete expansion of the lungs. Cannot exclude small pleural effusions. There is mild cardiac enlargement. Normal mediastinum and robby. Normal visualized pulmonary arteries. There is atherosclerotic tortuosity of the aortic arch and descending thoracic aorta. Normal visualized thoracic spine. Normal visualized ribs, clavicles, and shoulders. There is no demonstrated abnormality of the visualized soft tissue structures of the upper abdomen. RAD/Chest 1 View (Portable) IMPRESSION: Bilateral lower lung dang atelectasis or infiltrate, grossly stable but possible minimal improvement on the right. Electronically Signed: Brent Maza MD at 22:18 EDT ,
[2023-02-18] MEDS: Potassium Chloride Oral Tablet 20 MEQ 40 MEQ PO (08:49)
[2023-02-18] MEDS: APIXABAN 5 MG TABLET PO ×2 (08:50→21:08)
[2023-02-18] MEDS: Metoprolol Tartrate 25 MG Tablet PO (08:51)
[2023-02-18] MEDS: Potassium Chloride 10mEq/100mL 10 MEQ/100 ML IV.SOLN. 100 MEQ IV BOLUS ×2 (08:51→10:26)
[2023-02-18] MEDS: 0.9% Saline Lock 10 ML Syringe IV ×6 (08:51→21:08)
[2023-02-18] MEDS: Escitalopram Oxalate 10 MG Tablet PO (08:51)
[2023-02-18 09:08] LABS: BNP,B-Type NATRIURETIC PEPTIDE 90.3 pg/mL (0-100)
[2023-02-18] MEDS: Ceftriaxone 1 GM/50 ML BAG IV (11:48)
[2023-02-18 12:43] LABS: Anion Gap 2 (5-15); BUN 10 mg/dL (7-18); BUN/Creat Ratio 19.1 RATIO (10-20); Calcium,Total 8.6 mg/dL (8.5-10.1); Chloride 99 mmol/L (98-107); Creatinine, Serum 0.52 mg/dL (0.55-1.02); EST Glomerular Filtration Rate 119 mL/min (>60); Est Glom Filt Rate - Afr Amer 144 mL/min (>60); Estimated Creatinine Clearance 33.29 ml/min; Glucose 140 mg/dL (74-106); Potassium 3.9 mmol/L (3.5-5.1); Sodium Level 138 mmol/L (136-145)
[2023-02-18] MEDS: Methylprednisolone Sod Succ 40 MG/ML VIAL IV ×2 (15:09→21:08)
[2023-02-18] MEDS: Atorvastatin Calcium 40 MG Tablet PO (21:08)
[2023-02-18] MEDS: Metoprolol Tartrate 25 MG Tablet 12.5 MG PO (21:17)
[2023-02-18] MEDS: guaiFENesin 600 MG Tablet PO (21:20)
[2023-02-19] VITALS (9 sets, daily range): BP systolic 104–113; BP diastolic 50–54; PULSE 71–93; RESP 16–18; TEMP 36.6; O2SAT 84–95
[2023-02-19] MEDS: 0.9% Saline Lock 10 ML Syringe IV (05:24)
[2023-02-19] MEDS: Methylprednisolone Sod Succ 40 MG/ML VIAL IV ×2 (05:24→14:42)
[2023-02-19 06:42] LABS: Absolute Lymphocyte Count 0.61 X10^3/uL (0.83-4.51); Absolute Neutrophil Count 8.1 X10^3/uL (2.0-7.7); Basophil# 0.01 X10^3/uL; Basophil% 0.1 % (0-1); Hemoglobin 11.2 g/dL (12.0-15.0); Lymphocyte # 0.61 X10^3/ul (0.83-4.51); Lymphocyte % 6.8 % (19-41); Mean Corpuscular Hgb 27.7 pg (27.0-32.0); Mean Corpuscular Volume 86.4 fL (81-99); Monocyte# 0.15 X10^3/uL; Monocyte% 1.7 % (0-10); NRBC Flagged by Analyzer 0 % (0-5); Neutrophil # 8.09 X10^3/uL (2.7-7.7); Neutrophil % 90.4 % (47-70); Platelet Count 388 K/mm3 (150-450); RBC Distribution Width SD 44.7 fl (35.1-43.9); Red Blood Count 4.05 M/mm3 (4.2-5.4)
[2023-02-19 07:04] LABS: Anion Gap 3 (5-15); BUN 12 mg/dL (7-18); BUN/Creat Ratio 18.1 RATIO (10-20); Calcium,Total 8.7 mg/dL (8.5-10.1); Chloride 101 mmol/L (98-107); Creatinine, Serum 0.66 mg/dL (0.55-1.02); EST Glomerular Filtration Rate 91 mL/min (>60); Est Glom Filt Rate - Afr Amer 110 mL/min (>60); Estimated Creatinine Clearance 33.29 ml/min; Glucose 222 mg/dL (74-106); Potassium 3.7 mmol/L (3.5-5.1); Sodium Level 138 mmol/L (136-145)
[2023-02-19] MEDS: Ipratropium/Albuterol Sulfate 3 ML AMPUL.NEB INHALATION ×3 (07:41→19:25)
[2023-02-19] MEDS: APIXABAN 5 MG TABLET PO (08:36)
[2023-02-19] MEDS: guaiFENesin 600 MG Tablet PO (08:36)
[2023-02-19] MEDS: Escitalopram Oxalate 10 MG Tablet PO (08:37)
[2023-02-19] MEDS: Metoprolol Tartrate 25 MG Tablet 12.5 MG PO (08:37)
--- NOTE | 2023-02-19 09:51 | PCM.PN.HOSP ---
Reason for Visit Reason for Visit: Diagnoses Pneumonia, unspecified organism (02/16/23) Objective Data Objective Data Vital Signs: Vital Signs Temp Pulse Resp BP Pulse Ox O2 Del Method O2 Flow Rate 97.8 F 81 18 113/50 L 90 Nasal Cannula 5 02/19/23 08:25 02/19/23 08:37 02/19/23 08:25 02/19/23 08:37 02/19/23 08:25 02/19/23 08:25 02/19/23 08:25 Oxygen Flow Rate (L/min) 5 Oxygen Delivery Method Nasal Cannula Weight: 64.4 kg Body Mass Index (BMI) 26.8 Intake & Output: Intake and Output for Last 24 Hours 02/17/23 02/18/23 02/19/23 23:59 23:59 23:59 Intake Total 1420.5 / 1520.5 1789.75 / 1789.75 100 / 100 Balance 1420.5 / 1520.5 1789.75 / 1789.75 100 / 100 Lab / Micro Data 02/19/23 06:15 02/19/23 06:15 Labs: Laboratory Results - last 24 hr 02/18/23 12:00: Sodium 138, Potassium 3.9, Chloride 99, Carbon Dioxide 37.0 H, Anion Gap 2 L, BUN 10, Creatinine 0.52 L, Estim Creat Clear Calc 33.29, Est GFR (MDRD) Af Amer 144, Est GFR (MDRD) Non-Af 119, BUN/Creatinine Ratio 19.1, Glucose 140 H, Calcium 8.6 02/19/23 06:15: WBC 9.0, RBC 4.05 L, Hgb 11.2 L, Hct 35.0 L, MCV 86.4, MCH 27.7, MCHC 32.0, RDW Std Deviation 44.7 H, RDW Coeff of Ozzie 14.0, Plt Count 388, MPV 9.0, Immature Gran % (Auto) 1.000 H, Neut % (Auto) 90.4 H, Lymph % (Auto) 6.8 L, [place] % (Auto) 1.7, Eos % (Auto) 0.0, Baso % (Auto) 0.1, Absolute Neuts (auto) 8.1 H, Absolute Lymphs (auto) 0.61 L, Nucleated RBC % 0, Sodium 138, Potassium 3.7, Chloride 101, Carbon Dioxide 34.0 H, Anion Gap 3 L, BUN 12, Creatinine 0.66, Estim Creat Clear Calc 33.29, Est GFR (MDRD) Af Amer 110, Est GFR (MDRD) Non-Af 91, BUN/Creatinine Ratio 18.1, Glucose 222 H, Calcium 8.7 Micro: Microbiology 02/16/23 15:39 Urine, Catheterized Urine Culture - Final Presumptive E. coli 02/17/23 07:18 Urine, Clean Catch Legionella Antigen - Final 02/17/23 07:18 Urine, Clean Catch Streptococcus pneumoniae Antigen (M - Final 02/16/23 19:45 Mucosa - Nasopharyngeal Respiratory Panel (PCR) - Final 02/16/23 15:20 Nasal Secretion SARS-CoV-2 & FLU Antigen (Rapid) - Final 02/16/23 14:32 Nasal Secretion SARS-CoV-2 Antigen (Rapid) - Final Radiography Diagnostic Testing: Radiology Impression Chest X-Ray 02/18/23 08:20 IMPRESSION: Bilateral lower lung dang atelectasis or infiltrate, grossly stable but possible minimal improvement on the right. Electronically Signed: Brent Maza MD at 22:18 EDT , Assessment & Plan Assessment/Plan (1) Community acquired pneumonia: PLAN: Plan Patient is an 82-year-old female with history of lung cancer s/p right upper lobe lobectomy (2016), PE on Eliquis, hypertension and hyperlipidemia who presented to [facility] ED on 02/16/2023 with productive cough and worsening shortness of breath. #Acute on chronic hypoxic and hypercapnic respiratory failure, community-acquired pneumonia unclear organism, in setting of chronic COPD Patient mildly hypoxic in setting of suspected community-acquired pneumonia. Does not use home oxygen. Suspect patient has some degree of chronic lung disease given bicarbonate of 37 on admission showing appropriate compensation for chronic hypercapnia. Chest x-ray showed bilateral pneumonia, worse in the right lower lobe as noted above. Vital stable, no concern for sepsis at this time. - Will treat with ceftriaxone and azithromycin for now. Blood cultures, sputum culture, urine antigens, full respiratory PCR panel pending. COVID and flu negative in the ED. Will likely need room air walk test prior to discharge. -02/17: O2 sat improved to 98% on 4 L, wean O2. Patient improved significantly with just antibiotics and supportive care however PFTs in 2014 did show moderately severe large airway obstructive ventilatory defect with significant response to bronchodilators. Unclear why she is not on home inhalers, may benefit from that going forward. We will add nebs. Likely DC home in next 1 to 2 days given her improvement, wean O2 -02/18: Urine antigens negative, respiratory panel and COVID/flu negative, patient on nebs and CAP coverage. Chest x-ray on admission demonstrated cardiomegaly with new opacities in both lower lobes right greater than left compatible with early/developing pneumonia and recommended follow-up chest imaging. Patient not on home O2 but still requiring 3 to 4 L to maintain sats in the 90s so chest x-ray rechecked as well as BNP. Chest x-ray appeared similar looking of the film but final read pending, BNP was within normal limits. Unclear reason for her continued hypoxia and infiltrates may just be pneumonia that is slow return around or may have component of COPD and she had PFTs in 2015 as above. Will give trial of steroids especially with wheezing. On Eliquis at home so unlikely PE, does not appear fluid overloaded and BNP wnl. If not improving may need chest CT -02/19: Did consult pulmonology given her lack of improvement, was able to get sputum sample and this is pending #UTI ? UA on admission concerning for UTI. Patient denies any urinary symptoms does have a history of UTIs. Treating with ceftriaxone as above. Urinary cultures pending. -02/17: Cultures pending, continue Rocephin -02/18: Presumptive E. coli, continue antibiotics, awaiting sensitivities -02/19: Pansensitive E. coli UTI however yesterday BP was dropping on present management and she had been switched to Zosyn, sputum culture still pending #Mild debility ? Lives at home by herself and is quite functional at baseline per patient and son's report. PT/OT/case management consulted. -02/19: May be able to go home with help #Hypokalemia ? Unclear etiology. Potassium 2.7, replete as needed. Check magnesium and phosphorus. -02/18: Low again, will aggressively replete and check again this afternoon, mag and Phos had been within normal limits #Hypertension ? Continue home Lopressor. -02/18: Has been very well controlled #Hyperlipidemia ? Continue home atorvastatin. #Depression ? Stable. Continue home Lexapro. #History of PE ? Continue home Eliquis. DVT prophylaxis: Eliquis CODE STATUS: Full code, verified Expected disposition: Home, 2 to 3 days Charges/Coding Visit Charges Inpatient E&M: 20267 Subs Hosp L2
--- NOTE | 2023-02-19 12:48 | CON.PCM.CC_ITS ---
Assessment & Plan Assessment/Plan (1) COPD (chronic obstructive pulmonary disease): PLAN: Plan RECOMMENDATIONS: 1. Continue to wean supplemental oxygen to maintain saturations at or above 90%. 2. Continue antimicrobials to complete 7 days of therapy. 3. Continue scheduled bronchodilators. 4. Agree with prednisone 40 mg daily x5 days. 5. Encourage incentive spirometer use and mobilize patient as tolerated. 6. Recertification for home-going supplemental O2. 7. Outpatient pulmonary follow-up in 2 weeks. IMPRESSIONS: 1. COPD exacerbation secondary to pneumonia with hypoxemia The patient has known advanced age COPD and was reportedly requiring 3 L/min of supplemental oxygen at home until recently, when Medicare apparently stopped paying for it. The patient appears to be slowly improving with antimicrobials, bronchodilators and steroids. I do think it would be reasonable to continue her on prednisone 40 mg daily for the next 5 days. She will require recertification for home-going supplemental O2. After discharge, I would recommend that the patient follow-up in the pulmonary medicine clinic so that we can provide ongoing management of her COPD and chronic hypoxemic respiratory failure. 2. E. coli UTI Management with antimicrobials per hospitalist. 3. History of hypertension/hyperlipidemia/depression/history of PE Complicates care, management, recovery and prognosis. Continue home medications as indicated, including systemic anticoagulation with Eliquis. This note was generated with [employer] dictation software. It may contain incorrect words, spelling, and punctuation that were not noted in checking the note before signing. HPI Consult Data Date of Consult: 02/19/23 HPI Narrative Reason for Consultation: Hypoxemia HPI Narrative: The patient is an 82-year-old female, with a history as outlined below, who presented to the emergency department on February 16 with cough and shortness of breath. The patient has a known history of advanced age COPD and prior lung cancer status post right upper lobectomy, history of PE on Eliquis and chronic hypoxemic respiratory failure. The patient stated that she was recently on oxygen at 3 L/min until Medicare refused to pay for it any further. She does not currently follow with a die repair machinist. She does not appear to utilize any bronchodilators at her baseline. On presentation to the emergency department, the patient was noted to be afebrile hemodynamically stable. Initial laboratory evaluation revealed no evidence of a leukocytosis. Chemistry profile was notable for a sodium of 135, potassium of 2.7, chloride of 94, bicarbonate of 37 and normal creatinine. Urinalysis was positive for leukocyte esterase and 4+ urine bacteria. Chest imaging demonstrated bibasilar airspace opacities. The patient was subsequently placed on antibiotics, bronchodilators and steroids. She was admitted to the progressive care unit for further management. [facility] Medical History (Updated 02/16/23 @ 19:13 by Martha Esquivel) Anxiety Arthritis Back pain Cancer Cardiology follow-up encounter Coronary stenosis Depression Former smoker Heart disease Heartburn High cholesterol History of diverticulitis History of echocardiogram History of edema History of stress test Hypertension Loss of hearing Myocardial infarction Shortness of breath on exertion Wears glasses Wears partial dentures Home Medications metoprolol tartrate 50 mg tablet (Lopressor) 25 mg PO BID bp 04/27/14 [History Last Taken 02/16/23] atorvastatin 10 mg tablet 40 mg PO QHS cholesterol 07/21/17 [History Last Taken 02/15/23] escitalopram oxalate 10 mg tablet (Lexapro) 10 mg PO DAILY mood 06/21/22 [History Last Taken 02/15/23] loratadine 10 mg tablet 10 mg PO DAILY PRN allergies 06/30/22 [History Last Taken 02/16/23] apixaban 5 mg (74 tabs) tablets in a dose pack (Eliquis DVT-PE Treat 30D Start) 10 mg (2 x 5 mg (74 tabs)) PO BID #74 tabs 07/01/22 [Rx Last Taken 02/16/23] Allergy/AdvReac Type Severity Reaction Status Date / Time No Known Allergies Allergy Verified 02/16/23 18:32 Family History Mother Colon cancer Father Myocardial infarction Surgical History History of lobectomy of lung Hx of eye surgery Hx of right cataract extraction Lung cancer Social History (Updated 06/30/22 @ 17:[address] Mary Meredith DO) housing: house Smoking Status: Former smoker alcohol intake: never substance use type: does not use ROS ROS Narrative 10 systems were reviewed with pertinent positives as noted in the HPI above. Physical Exam Const alert and no apparent distress General Appearance: cooperative HEENT normocephalic, head/scalp atraumatic and moist oral mucous membranes Eyes PERRL, EOMs intact bilaterally and conjunctivae normal Neck supple General: trachea midline Chest inspection of chest normal Resp normal respiratory effort Auscultation: diminished lung sounds; Negative for rales, rhonchi or wheezes Cardio regular rate and regular rhythm GI normal to inspection, nondistended, normoactive bowel sounds Extremity no clubbing, cyanosis or edema Skin no rashes or lesions noted Neuro CN's II-XII intact bilaterally, moves all extremities and no focal motor deficits Psych cooperative and affect normal Lab / Micro Data 02/19/23 06:15 02/19/23 06:15 Labs: Laboratory Results - last 24 hr 02/19/23 06:15: WBC 9.0, RBC 4.05 L, Hgb 11.2 L, Hct 35.0 L, MCV 86.4, MCH 27.7, MCHC 32.0, RDW Std Deviation 44.7 H, RDW Coeff of Ozzie 14.0, Plt Count 388, MPV 9.0, Immature Gran % (Auto) 1.000 H, Neut % (Auto) 90.4 H, Lymph % (Auto) 6.8 L, [place] % (Auto) 1.7, Eos % (Auto) 0.0, Baso % (Auto) 0.1, Absolute Neuts (auto) 8.1 H, Absolute Lymphs (auto) 0.61 L, Nucleated RBC % 0, Sodium 138, Potassium 3.7, Chloride 101, Carbon Dioxide 34.0 H, Anion Gap 3 L, BUN 12, Creatinine 0.66, Estim Creat Clear Calc 33.29, Est GFR (MDRD) Af Amer 110, Est GFR (MDRD) Non-Af 91, BUN/Creatinine Ratio 18.1, Glucose 222 H, Calcium 8.7 Micro: Microbiology 02/16/23 15:39 Urine, Catheterized Urine Culture - Final Presumptive E. coli Radiology Impression Chest X-Ray 02/18/23 08:20 IMPRESSION: Bilateral lower lung dang atelectasis or infiltrate, grossly stable but possible minimal improvement on the right. Electronically Signed: Brent Maza MD at 22:18 EDT , Charges/Coding Visit Charges Inpatient E&M: 33962 Init Hosp L3
--- NOTE | 2023-02-19 16:00 | PCM.DC ---
Discharge Instructions Diet Discharge Diet: No restrictions Activity Discharge Activity: - (Use home O2) Follow Up Care Test Results: Test results from this visit will be discussed in further detail at your follow-up appointment, if applicable. Discharge Plan Admission Admit Date/Time: 02/16/23 17:46 Primary Reason for Your Visit: Shortness of breath Attending Provider: Jennifer Good Primary Care Provider: Adebayo Kaba [employer] Providers: Ravi Rdz; Terrance Valera; Jorge Sales; Masoud Juares; Panfilo Radford; Ivana Wyman BAD CREDIT COLLECTOR Instructions Patient Instructions: Asthma and COPD Additional Instructions / Restrictions: DISCHARGE INSTRUCTIONS PLEASE READ *Please take this with you to your next doctors appointment* -For your pneumonia it is recommended that you have repeat chest x-ray on an outpatient basis, this can coordinated through your primary care physician's office or via pulmonology office -You will be discharged on antibiotics for both your urinary tract infection as well as your pneumonia, you will be on Levaquin 750 mg daily for 3 more days, prescriptions for these will be sent to your preferred pharmacy on file, [facility] in [place]. -Additionally prescription for prednisone 40 mg will be sent to your pharmacy, you will take this for 4 more days -You will also be sent with a prescription for Symbicort inhaler -Please follow-up with pulmonology upon discharge. Please call their office to schedule hospital follow-up appointment upon discharge for 2 weeks. -Please call your primary care provider's office upon discharge to schedule a hospital follow up within 1 week. -For any concerning signs or symptoms please call 911 or proceed to the nearest emergency department Discharge Orders/Prescriptions Prescriptions: New prednisone 20 mg Tablet 40 mg PO DAILY 4 Days Qty: 8 0RF budesonide-formoterol [Symbicort] 160-4.5 mcg/actuation HFA aerosol inhaler 2 puff inhalation BID Qty: 10.2 0RF levofloxacin 750 mg tablet 750 mg PO DAILY 3 Days Qty: 3 0RF Continued atorvastatin 10 mg tablet 40 mg PO QHS metoprolol tartrate [Lopressor] 50 MG tablet 25 mg PO BID Patient Comments: escitalopram oxalate [Lexapro] 10 mg Tablet 10 mg PO DAILY loratadine 10 mg Tablet 10 mg PO DAILY PRN (Reason: allergies) Eliquis DVT-PE Treat 30D Start 5 mg (74 tabs) tablets,dose pack 10 mg PO BID Qty: 74 0RF Referrals / Follow Up: Jorge Sales DO [Med Staff - Active Staff] - Within 2 Weeks Adebayo Kaba Chi, MD [Primary Care Provider] - Within 1 Week Disposition Disposition (needs filled in before D/C Order can be placed): Home, Self Care
--- NOTE | 2023-02-19 16:07 | DS.PCM_ITS ---
Providers Date of Admission: 02/16/23 Date of Discharge: 02/19/23 Primary Care Physician: Dr. Adebayo Kaba MD Consultations 02/19/23 08:24 Consult: Outreach Librarian / Pulmonary Medicine Routine Consulting Provider: [facility] Reason for Consult: pulm consult, 5L o2 req despite abx, steroids, nebs, no home o2 EMERGENT Consult: No MD Notified: Yes Date Notified: 02/19/23 Time Notified: 09:54 Method of Notification: Text Reason For Visit: HYPOXIA, COMMUNITY ACQUIRED PNEUMONIA Diagnosis Discharge Diagnosis (1) Community acquired pneumonia: Status: Acute Code(s): J18.9 - Pneumonia, unspecified organism Plan Patient is an 82-year-old female with history of lung cancer s/p right upper lobe lobectomy (2015), PE on Eliquis, hypertension and hyperlipidemia who presented to [facility] ED on 02/16/2023 with productive cough and worsening shortness of breath. #Acute on chronic hypoxic and hypercapnic respiratory failure, community- acquired pneumonia unclear organism, in setting of chronic COPD Patient mildly hypoxic in setting of suspected community-acquired pneumonia. Does not use home oxygen. Suspect patient has some degree of chronic lung disease given bicarbonate of 37 on admission showing appropriate compensation for chronic hypercapnia. Chest x-ray showed bilateral pneumonia, worse in the right lower lobe as noted above. Vital stable, no concern for sepsis at this time. - Will treat with ceftriaxone and azithromycin for now. Blood cultures, sputum culture, urine antigens, full respiratory PCR panel pending. COVID and flu negative in the ED. Will likely need room air walk test prior to discharge. -02/17: O2 sat improved to 98% on 4 L, wean O2. Patient improved significantly with just antibiotics and supportive care however PFTs in 2014 did show moderately severe large airway obstructive ventilatory defect with significant response to bronchodilators. Unclear why she is not on home inhalers, may benefit from that going forward. We will add nebs. Likely DC home in next 1 to 2 days given her improvement, wean O2 -02/18: Urine antigens negative, respiratory panel and COVID/flu negative, patient on nebs and CAP coverage. Chest x-ray on admission demonstrated cardiomegaly with new opacities in both lower lobes right greater than left compatible with early/developing pneumonia and recommended follow-up chest imaging. Patient not on home O2 but still requiring 3 to 4 L to maintain sats in the 90s so chest x-ray rechecked as well as BNP. Chest x-ray appeared similar looking of the film but final read pending, BNP was within normal limits. Unclear reason for her continued hypoxia and infiltrates may just be pneumonia that is slow return around or may have component of COPD and she had PFTs in 2015 as above. Will give trial of steroids especially with wheezing. On Eliquis at home so unlikely PE, does not appear fluid overloaded and BNP wnl. If not improving may need chest CT -02/19: Did consult pulmonology given her lack of improvement, was able to get sputum sample and this is pending #UTI ? UA on admission concerning for UTI. Patient denies any urinary symptoms does have a history of UTIs. Treating with ceftriaxone as above. Urinary cultures pending. -02/17: Cultures pending, continue Rocephin -02/18: Presumptive E. coli, continue antibiotics, awaiting sensitivities -02/19: Pansensitive E. coli UTI however yesterday BP was dropping on present management and she had been switched to Zosyn, sputum culture still pending #Mild debility ? Lives at home by herself and is quite functional at baseline per patient and son's report. PT/OT/case management consulted. -02/19: May be able to go home with help #Hypokalemia ? Unclear etiology. Potassium 2.7, replete as needed. Check magnesium and phosphorus. -02/18: Low again, will aggressively replete and check again this afternoon, mag and Phos had been within normal limits #Hypertension ? Continue home Lopressor. -02/18: Has been very well controlled #Hyperlipidemia ? Continue home atorvastatin. #Depression ? Stable. Continue home Lexapro. #History of PE ? Continue home Eliquis. DVT prophylaxis: Eliquis CODE STATUS: Full code, verified Expected disposition: Home, 2 to 3 days Medications at Discharge Home Medications metoprolol tartrate 50 mg tablet (Lopressor) 25 mg PO BID bp 04/27/14 atorvastatin 10 mg tablet 40 mg PO QHS cholesterol 07/21/17 escitalopram oxalate 10 mg tablet (Lexapro) 10 mg PO DAILY mood 06/21/22 loratadine 10 mg tablet 10 mg PO DAILY PRN allergies 01/06/23 apixaban 5 mg (74 tabs) tablets in a dose pack (Eliquis DVT-PE Treat 30D Start) 10 mg (2 x 5 mg (74 tabs)) PO BID #74 tabs 07/01/22 budesonide-formoterol HFA 160 mcg-4.5 mcg/actuation aerosol inhaler (Symbicort) 2 puff inhalation BID #10.2 grams 02/19/23 levofloxacin 750 mg tablet 750 mg PO DAILY 3 days #3 tabs 02/19/23 prednisone 20 mg tablet 40 mg (2 x 20 mg) PO DAILY 4 days #8 tabs 02/19/23 Weight / BMI Weight Weight: 64.4 kg Body Mass Index (BMI) 26.8 ABG / Lab / Microbiology Data 02/19/23 06:15 02/19/23 06:15 Laboratory: Laboratory Results - last 24 hr 02/19/23 06:15: WBC 9.0, RBC 4.05 L, Hgb 11.2 L, Hct 35.0 L, MCV 86.4, MCH 27.7, MCHC 32.0, RDW Std Deviation 44.7 H, RDW Coeff of Ozzie 14.0, Plt Count 388, MPV 9.0, Immature Gran % (Auto) 1.000 H, Neut % (Auto) 90.4 H, Lymph % (Auto) 6.8 L, Russell % (Auto) 1.7, Eos % (Auto) 0.0, Baso % (Auto) 0.1, Absolute Neuts (auto) 8.1 H, Absolute Lymphs (auto) 0.61 L, Nucleated RBC % 0, Sodium 138, Potassium 3.7, Chloride 101, Carbon Dioxide 34.0 H, Anion Gap 3 L, BUN 12, Creatinine 0.66, Estim Creat Clear Calc 33.29, Est GFR (MDRD) Af Amer 110, Est GFR (MDRD) Non-Af 91, BUN/Creatinine Ratio 18.1, Glucose 222 H, Calcium 8.7 Microbiology: Microbiology 02/16/23 15:50 Blood Culture (Wb) - Anticubital Left Blood Culture - Preliminary No growth in 48 hours. 02/16/23 15:50 Blood Culture (Wb) - Anticubital Right Blood Culture - Preliminary No growth in 48 hours. 02/18/23 02:30 Sputum, Expectorated/Coughed Gram Stain - Final 02/16/23 15:39 Urine, Catheterized Urine Culture - Final Presumptive E. coli 02/17/23 07:18 Urine, Clean Catch Legionella Antigen - Final 02/17/23 07:18 Urine, Clean Catch Streptococcus pneumoniae Antigen (M - Final 02/16/23 19:45 Mucosa - Nasopharyngeal Respiratory Panel (PCR) - Final 02/16/23 15:20 Nasal Secretion SARS-CoV-2 & FLU Antigen (Rapid) - Final 02/16/23 14:32 Nasal Secretion SARS-CoV-2 Antigen (Rapid) - Final Radiography Diagnostic Testing: Radiology Impression Chest X-Ray 02/18/23 08:20 IMPRESSION: Bilateral lower lung dang atelectasis or infiltrate, grossly stable but possible minimal improvement on the right. Electronically Signed: Brent Maza MD at 22:18 EDT , D/C Instructions Discharge Diet: No restrictions Discharge Plan Admission Admit Date/Time: 02/16/23 17:46 Primary Reason for Your Visit: Shortness of breath Attending Provider: Jennifer Good Primary Care Provider: Adebayo Kaba Chi Consulting Providers: Ravi Rdz; Terrance Valera; Jorge Sales; Masoud Juares; Panfilo Radford; Ivana Wyman ERP ANALYST Instructions Patient Instructions: Asthma and COPD Additional Instructions / Restrictions: DISCHARGE INSTRUCTIONS PLEASE READ *Please take this with you to your next doctors appointment* -For your pneumonia it is recommended that you have repeat chest x-ray on an outpatient basis, this can coordinated through your primary care physician's office or via pulmonology office -You will be discharged on antibiotics for both your urinary tract infection as well as your pneumonia, you will be on Levaquin 750 mg daily for 3 more days, prescriptions for these will be sent to your preferred pharmacy on file, [facility] in [place]. -Additionally prescription for prednisone 40 mg will be sent to your pharmacy, you will take this for 4 more days -You will also be sent with a prescription for Symbicort inhaler -Please follow-up with pulmonology upon discharge. Please call their office to schedule hospital follow-up appointment upon discharge for 2 weeks. -Please call your primary care provider's office upon discharge to schedule a hospital follow up within 1 week. -For any concerning signs or symptoms please call 911 or proceed to the nearest emergency department Discharge Orders/Prescriptions Prescriptions: New prednisone 20 mg Tablet 40 mg PO DAILY 4 Days Qty: 8 0RF budesonide-formoterol [Symbicort] 160-4.5 mcg/actuation HFA aerosol inhaler 2 puff inhalation BID Qty: 10.2 0RF levofloxacin 750 mg tablet 750 mg PO DAILY 3 Days Qty: 3 0RF Continued atorvastatin 10 mg tablet 40 mg PO QHS metoprolol tartrate [Lopressor] 50 MG tablet 25 mg PO BID Patient Comments: escitalopram oxalate [Lexapro] 10 mg Tablet 10 mg PO DAILY loratadine 10 mg Tablet 10 mg PO DAILY PRN (Reason: allergies) Eliquis DVT-PE Treat 30D Start 5 mg (74 tabs) tablets,dose pack 10 mg PO BID Qty: 74 0RF Referrals / Follow Up: Jorge Sales DO [Med Staff - Active Staff] - Within 2 Weeks Adebayo Kaba Chi, MD [Primary Care Provider] - Within 1 Week Disposition Disposition (needs filled in before D/C Order can be placed): Home, Self Care
--- NOTE | 2023-02-19 16:07 | PCM.DC.SUM ---
Providers Date of Admission: 02/16/23 Date of Discharge: 02/19/23 Primary Care Physician: Dr. Adebayo Kaba MD Consultations 02/19/23 08:24 Consult: Network Operations Center Technician / Pulmonary Medicine Routine Consulting Provider: [facility] Reason for Consult: pulm consult, 5L o2 req despite abx, steroids, nebs, no home o2 EMERGENT Consult: No MD Notified: Yes Date Notified: 02/19/23 Time Notified: 09:54 Method of Notification: Text Reason For Visit: HYPOXIA, COMMUNITY ACQUIRED PNEUMONIA Diagnosis Discharge Diagnosis (1) Community acquired pneumonia: Status: Acute Code(s): J18.9 - Pneumonia, unspecified organism Plan #Acute on chronic hypoxic and hypercapnic respiratory failure, community-acquired pneumonia unclear organism, in setting of chronic COPD #Pansensitive E. coli #Mild debility #Hypokalemia- resolved #Hypertension #Hyperlipidemia #Depression #History of PE Medications at Discharge Home Medications metoprolol tartrate 50 mg tablet (Lopressor) 25 mg PO BID bp 04/27/14 atorvastatin 10 mg tablet 40 mg PO QHS cholesterol 07/21/17 escitalopram oxalate 10 mg tablet (Lexapro) 10 mg PO DAILY mood 06/21/22 loratadine 10 mg tablet 10 mg PO DAILY PRN allergies 06/30/22 apixaban 5 mg (74 tabs) tablets in a dose pack (Eliquis DVT-PE Treat 30D Start) 10 mg (2 x 5 mg (74 tabs)) PO BID blood thinner #74 tabs 07/01/22 budesonide-formoterol HFA 160 mcg-4.5 mcg/actuation aerosol inhaler (Symbicort) 2 puff inhalation BID #10.2 grams 02/19/23 levofloxacin 750 mg tablet 750 mg PO DAILY 3 days #3 tabs 02/19/23 prednisone 20 mg tablet 40 mg (2 x 20 mg) PO DAILY 4 days #8 tabs 02/19/23 Hospital Course Summary of Care Provided Minutes Spent on Discharge: 40 Hospital Course: IRIS PENNY is a 82 F with history of lung cancer s/p right upper lobe lobectomy (2016), PE on Eliquis, hypertension and hyperlipidemia who presented to [facility] ED on 02/16/2023 with productive cough and worsening shortness of breath that were sent over 1 week. In the ED she was tachypneic and O2 sats were low 90s on 4 L of nasal cannula and she did not report wearing any at home. Chest x-ray with cardiomegaly and new opacities in both lower lobes and UA suggestive of UTI. She was admitted and placed on antibiotics and due to continued wheezing and hypoxia steroids and nebs were added to her regimen and patient improved symptomatically. She later divulged that at some point she was wearing 3 L home O2 but it was no longer paid for so she had not been using it. Given her continued need for 3 to 4 L at rest pulmonology was consulted, they felt that this was likely chronic and that she could requalify for O2 and go home on a total of 7 days of antibiotics and finish the 5-day course of prednisone and follow-up in the office. Additionally during her hospitalization patient had pansensitive E. coli UTI and symptoms of this also improved. On day of discharge she reported feeling much better. She was ambulated for O2 and did qualify. Patient is ambulatory in the home and in the community and requires oxygen with portability. Discharge instructions as follows: -For your pneumonia it is recommended that you have repeat chest x-ray on an outpatient basis, this can coordinated through your primary care physician's office or via pulmonology office -You will be discharged on antibiotics for both your urinary tract infection as well as your pneumonia, you will be on Levaquin 750 mg daily for 3 more days, prescriptions for these will be sent to your preferred pharmacy on file, [facility] in [place]. -Additionally prescription for prednisone 40 mg will be sent to your pharmacy, you will take this for 4 more days -You will also be sent with a prescription for Symbicort inhaler -Please follow-up with pulmonology upon discharge. Please call their office to schedule hospital follow-up appointment upon discharge for 2 weeks. -Please call your primary care provider's office upon discharge to schedule a hospital follow up within 1 week. -For any concerning signs or symptoms please call 911 or proceed to the nearest emergency department Physical Exam Narrative General: Alert, oriented, no apparent distress HEENT: Atraumatic, normocephalic Eyes: Anicteric, normal conjunctiva, extraocular movements grossly intact Neck: Supple Respiratory: No wheezing, work of breathing improved Cardiovascular: Regular rate GI: Soft, nontender, nondistended Extremities: No edema Musculoskeletal: Moving all extremities Neuro: No overt focal neurological deficits, head tremor which she reports is chronic Skin: No rashes appreciated Psych: Cooperative Weight / BMI Weight Weight: 64.4 kg Body Mass Index (BMI) 26.8 ABG / Lab / Microbiology Data 02/19/23 06:15 02/19/23 06:15 Laboratory: Laboratory Results - last 24 hr 02/19/23 06:15: WBC 9.0, RBC 4.05 L, Hgb 11.2 L, Hct 35.0 L, MCV 86.4, MCH 27.7, MCHC 32.0, RDW Std Deviation 44.7 H, RDW Coeff of Ozzie 14.0, Plt Count 388, MPV 9.0, Immature Gran % (Auto) 1.000 H, Neut % (Auto) 90.4 H, Lymph % (Auto) 6.8 L, Hemphill % (Auto) 1.7, Eos % (Auto) 0.0, Baso % (Auto) 0.1, Absolute Neuts (auto) 8.1 H, Absolute Lymphs (auto) 0.61 L, Nucleated RBC % 0, Sodium 138, Potassium 3.7, Chloride 101, Carbon Dioxide 34.0 H, Anion Gap 3 L, BUN 12, Creatinine 0.66, Estim Creat Clear Calc 33.29, Est GFR (MDRD) Af Amer 110, Est GFR (MDRD) Non-Af 91, BUN/Creatinine Ratio 18.1, Glucose 222 H, Calcium 8.7 Microbiology: Microbiology 02/16/23 15:50 Blood Culture (Wb) - Anticubital Left Blood Culture - Preliminary No growth in 48 hours. 02/16/23 15:50 Blood Culture (Wb) - Anticubital Right Blood Culture - Preliminary No growth in 48 hours. 02/18/23 02:30 Sputum, Expectorated/Coughed Gram Stain - Final 02/16/23 15:39 Urine, Catheterized Urine Culture - Final Presumptive E. coli 02/17/23 07:18 Urine, Clean Catch Legionella Antigen - Final 02/17/23 07:18 Urine, Clean Catch Streptococcus pneumoniae Antigen (M - Final 02/16/23 19:45 Mucosa - Nasopharyngeal Respiratory Panel (PCR) - Final 02/16/23 15:20 Nasal Secretion SARS-CoV-2 & FLU Antigen (Rapid) - Final 02/16/23 14:32 Nasal Secretion SARS-CoV-2 Antigen (Rapid) - Final Radiography Diagnostic Testing: Radiology Impression Chest X-Ray 02/18/23 08:20 IMPRESSION: Bilateral lower lung dang atelectasis or infiltrate, grossly stable but possible minimal improvement on the right. Electronically Signed: Brent Maza MD at 22:18 EDT , D/C Instructions Discharge Diet: No restrictions Meaningful Use Info Meaningful Use Diagnoses (Choose all that apply): None applicable Discharge Plan Admission Admit Date/Time: 02/16/23 17:46 Primary Reason for Your Visit: Shortness of breath Attending Provider: Jennifer Good Primary Care Provider: Adebayo Kaba Chi Consulting Providers: Ravi Rdz; Terrance Valera; Jorge Sales; Masoud Juares; Panfilo Radford; Ivana Wyman RACING BOARD MARKER Instructions Patient Instructions: Asthma and COPD Additional Instructions / Restrictions: DISCHARGE INSTRUCTIONS PLEASE READ *Please take this with you to your next doctors appointment* -For your pneumonia it is recommended that you have repeat chest x-ray on an outpatient basis, this can coordinated through your primary care physician's office or via pulmonology office -You will be discharged on antibiotics for both your urinary tract infection as well as your pneumonia, you will be on Levaquin 750 mg daily for 3 more days, prescriptions for these will be sent to your preferred pharmacy on file, [facility]. -Additionally prescription for prednisone 40 mg will be sent to your pharmacy, you will take this for 4 more days -You will also be sent with a prescription for Symbicort inhaler -Please follow-up with pulmonology upon discharge. Please call their office to schedule hospital follow-up appointment upon discharge for 2 weeks. -Please call your primary care provider's office upon discharge to schedule a hospital follow up within 1 week. -For any concerning signs or symptoms please call 911 or proceed to the nearest emergency department Discharge Orders/Prescriptions Prescriptions: New prednisone 20 mg Tablet 40 mg PO DAILY 4 Days Qty: 8 0RF budesonide-formoterol [Symbicort] 160-4.5 mcg/actuation HFA aerosol inhaler 2 puff inhalation BID Qty: 10.2 0RF levofloxacin 750 mg tablet 750 mg PO DAILY 3 Days Qty: 3 0RF Continued atorvastatin 10 mg tablet 40 mg PO QHS metoprolol tartrate [Lopressor] 50 MG tablet 25 mg PO BID Patient Comments: escitalopram oxalate [Lexapro] 10 mg Tablet 10 mg PO DAILY loratadine 10 mg Tablet 10 mg PO DAILY PRN (Reason: allergies) Eliquis DVT-PE Treat 30D Start 5 mg (74 tabs) tablets,dose pack 10 mg PO BID Qty: 74 0RF Referrals / Follow Up: Jorge Sales DO [Med Staff - Active Staff] - Within 2 Weeks Adebayo Kaba Chi, MD [Primary Care Provider] - Within 1 Week Disposition Disposition (needs filled in before D/C Order can be placed): Home, Self Care Charges/Coding Visit Charges Inpatient E&M: 96246 Disch Hosp >30min
--- NOTE | 2023-02-19 16:59 | CASEMGMT ---
Patient qualifies for home oxygen, script received. Patient prefers [employer]. Per patient she is discharging to her partner's home at [address] [facility], [place], [place]. Patient gave permission to call partner, Elian Reeves [phone]. SHAUN BEDOYA called Elian to confirm address and to coordinate oxygen deliver to his home prior to patient's discharge. Elian voiced understanding and provide with [employer]'s number. RN ELKE sent referral to [employer] via [facility] and called manager branch Yaneli to facilitate coordination. RN ELKE updated patient and nursing and portable tank provided from [employer] stock. Patient had no further questions or concerns and denied further needs.
== END 2023-02-19 19:40 | disposition home or self-care (01) | DRG 193 ==
LOC: ED 16:03 → MS3 17:47 → PCU 19:33
PROVIDERS: Nurse Practitioner; Admitting Provider Hospitalist; Emergency Provider Emergency Medicine; PCP Family Medicine Geriatric Medicine; Visit Provider Internal Medicine
DX: J18.9 Pneumonia, unspecified organism (principal); J96.21 Acute and chronic respiratory failure with hypoxia; J96.22 Acute and chronic respiratory failure with hypercapnia; J44.0 Chronic obstructive pulmonary disease with (acute) lower respiratory infection; J44.1 Chronic obstructive pulmonary disease with (acute) exacerbation; N39.0 Urinary tract infection, site not specified; Z99.81 Dependence on supplemental oxygen; F32.A Depression, unspecified; I10 Essential (primary) hypertension; E78.00 Pure hypercholesterolemia, unspecified; E87.6 Hypokalemia; I25.2 Old myocardial infarction; B96.20 Unspecified Escherichia coli [E. coli] as the cause of diseases classified elsewhere; Z90.2 Acquired absence of lung [part of]; Z79.01 Long term (current) use of anticoagulants; Z79.52 Long term (current) use of systemic steroids; Z79.899 Other long term (current) drug therapy; Z86.711 Personal history of pulmonary embolism; Z85.118 Personal history of other malignant neoplasm of bronchus and lung; Z87.891 Personal history of nicotine dependence
CPT/HCPCS: 36415; 71045; 71046; 80048; 81001; 83735; 83880; 84100; 84484; 85025; 87040; 87070; 87086; 87088; 87186; 87205; 87428; 87449; 87633; 87811; 92610; 93005; 94640; 94668; 94760; 97162; 97166; 97530; 97802; 99252; 99285; J7040; J7050; P9612; A4216; G0463

== ENCOUNTER → 2023-02-27 | Outpatient (CLI) | payer MEDICARE, OTHER, SELFPAY ==
--- NOTE | 2023-02-27 10:55 | RAD_ITS ---
STUDY: X-RAY CHEST REASON FOR EXAM: Female, 82 years old. BILATERAL PNEUMONIA TECHNIQUE: PA and lateral views of the chest. COMPARISON: February 18, 2023 chest x-ray FINDINGS: There are persistent bilateral middle and lingular lobe patchy infiltrates.. There is also blunting of the costophrenic angles. There is no demonstrated pleural abnormality. Postoperative changes in the right hilum. Normal mediastinum and robby. Normal visualized pulmonary arteries. There is atherosclerotic tortuosity of the aortic arch and descending thoracic aorta. There are diffuse degenerative changes of the visualized thoracic spine. Normal visualized ribs, clavicles, and shoulders. There is no demonstrated abnormality of the visualized soft tissue structures of the upper abdomen. RAD/Chest PA and Lateral IMPRESSION: Right middle lobe, lingular areas of increased density suggesting pneumonia . Electronically Signed: Desiree Mendoza MD at 2:05 EDT ,
== END | disposition home or self-care (01) ==
LOC: RAD 10:53
PROVIDERS: PCP Family Medicine Geriatric Medicine; Referring Provider Family Medicine Geriatric Medicine; Visit Provider Family Medicine Geriatric Medicine
DX: J18.9 Pneumonia, unspecified organism (principal)
CPT/HCPCS: 71046

== ENCOUNTER → 2023-03-05 | Outpatient (CLI) | payer MEDICARE, OTHER, SELFPAY ==
--- NOTE | 2023-03-05 11:43 | RAD_ITS ---
INDICATION: COPD EXAMINATION/TECHNIQUE: X-RAY - XR Chest 2 Views COMPARISON: 02/27/2023. FINDINGS: LINES/DEVICES: None. LUNGS: Infiltrates in the right middle lobe and lingula are again seen unchanged prior exam. Persistent blunting of the right costophrenic angle. MEDIASTINUM AND CARDIOVASCULAR STRUCTURES: The cardiac silhouette remains enlarged. BONES AND SOFT TISSUES: Unremarkable. RAD/Chest PA and Lateral IMPRESSION: No significant change. Electronically Signed: Roman Adams MD at 23:54 EDT ,
== END | disposition home or self-care (01) ==
PROVIDERS: PCP Family Medicine Geriatric Medicine; Referring Provider Family Medicine Geriatric Medicine; Visit Provider Family Medicine Geriatric Medicine
DX: J44.9 Chronic obstructive pulmonary disease, unspecified (principal)
CPT/HCPCS: 71046

== ENCOUNTER → 2023-03-12 | Outpatient (CLI) | payer MEDICARE, OTHER, SELFPAY ==
--- NOTE | 2023-03-12 10:56 | RAD_ITS ---
INDICATION: CHRONIC PULMONARY DISEASE EXAMINATION/TECHNIQUE: X-RAY - XR Chest 2 Views COMPARISON: 03/05/2023 FINDINGS: LINES/DEVICES: None. LUNGS: Mixed interstitial and alveolar opacities right middle lobe and to a lesser extent left perihilar/lingula, not significantly changed. Blunting of the right costophrenic angle also unchanged. No pneumothorax. MEDIASTINUM: Aorta is atherosclerotic. CARDIAC SILHOUETTE: Enlarged. Stable size. BONES AND SOFT TISSUES: No acute abnormalities. RAD/Chest PA and Lateral IMPRESSION: Stable bilateral infiltrates greater on the right, and small right pleural effusion. Continued radiographic follow-up is recommended to confirm resolution, or correlate with CT chest as clinically indicated. Electronically Signed: Amie Palomino MD at 4:59 EDT ,
== END | disposition home or self-care (01) ==
LOC: RAD 10:55
PROVIDERS: PCP Family Medicine Geriatric Medicine; Referring Provider Family Medicine Geriatric Medicine; Visit Provider Family Medicine Geriatric Medicine
DX: J44.9 Chronic obstructive pulmonary disease, unspecified (principal)
CPT/HCPCS: 71046

== ENCOUNTER → 2023-03-16 | Outpatient (CLI) | payer MEDICARE, OTHER, SELFPAY ==
--- NOTE | 2023-03-16 12:08 | CT_ITS ---
STUDY: CT CHEST WITH CONTRAST REASON FOR EXAM: Female, 82 years old. COPD COUGH RECENT PNEUMONIA. HISTORY OF LUNG CANCER 2015 WITH PART OF RIGHT LUNG REMOVED RADIATION DOSAGE (If Supplied By Facility): CTDIvol = ( 17.08 ) mGy, DLP = ( 357.28 ) mGycm TECHNIQUE: Transaxial imaging was performed following intravenous administration of IV 100mL Isovue-300. Multiplanar coronal and sagittal images were reformatted. Individualized dose optimization techniques were used for this CT. COMPARISON: Comparison is made with prior study dated June 30, 2022. FINDINGS: CHEST Hyperinflation. Emphysematous changes. Patchy infiltrates in the anterior aspect of the right middle lobe and lingular segment of the left upper lobe. There is no demonstrated pleural abnormality. There are calcifications of the coronary arteries. Mild cardiomegaly. Normal mediastinum. Normal hilar regions. Normal unenhanced pulmonary arteries. There is atherosclerotic calcification of the aortic arch with tortuosity and elongation of the aortic arch and descending thoracic aorta. There is demineralization of the thoracic spine. Almost complete collapse of the lower dorsal vertebrae. Stable left renal cyst. CT/Chest WITH Contrast IMPRESSION: Patchy infiltrate seen in the anterior aspect of the right middle lobe and lingular segment of the left upper lobe slightly worse on the right side. Electronically Signed: Izaiah Bush MD at 13:35 EDT ,
== END | disposition home or self-care (01) ==
LOC: CT 12:00
PROVIDERS: PCP Family Medicine Geriatric Medicine; Referring Provider Family Medicine Geriatric Medicine; Visit Provider Family Medicine Geriatric Medicine
DX: J44.9 Chronic obstructive pulmonary disease, unspecified (principal); R05.9 Cough, unspecified; J18.9 Pneumonia, unspecified organism
CPT/HCPCS: 71260; Q9967; A4216

== ENCOUNTER → 2023-05-24 | Outpatient (CLI) | payer MEDICARE, OTHER, SELFPAY ==
--- NOTE | 2023-05-24 13:48 | RAD_ITS ---
STUDY: X-RAY CHEST REASON FOR EXAM: Female, 82 years old. Follow-up of pneumonia. TECHNIQUE: Frontal and lateral views of the chest. COMPARISON: March 12, 2023 FINDINGS: Resolution of patchy opacities noted on the prior study. Stable elevation of the right hemidiaphragm. There is no demonstrated pleural abnormality. Marked cardiomegaly unchanged. Normal mediastinum and robby. Normal visualized pulmonary arteries. Aortic tortuosity with calcification unchanged. Normal visualized thoracic spine. Normal visualized ribs, clavicles, and shoulders. No abnormality of the visualized soft tissue structures of the upper abdomen. RAD/Chest PA and Lateral IMPRESSION: Cardiomegaly with elevation of the right hemidiaphragm. Resolution of previously reported opacities at both bases. Electronically Signed: Eriberto Kothari MD at 14:49 EST ,
[2023-05-24 16:14] LABS: Absolute Lymphocyte Count 1.44 X10^3/uL (0.83-4.51); Absolute Neutrophil Count 5.4 X10^3/uL (2.0-7.7); Basophil# 0.02 X10^3/uL; Basophil% 0.3 % (0-1); Eosinophil# 0.14 X10^3/uL; Eosinophils% 1.9 % (0-5); Hematocrit 40.3 % (37-47); Hemoglobin 13.3 g/dL (12.0-15.0); Lymphocyte # 1.44 X10^3/ul (0.83-4.51); Lymphocyte % 19.1 % (19-41); Mean Corpuscular Hgb 29.1 pg (27.0-32.0); Mean Corpuscular Volume 88.2 fL (81-99); Mean Platelet Vol. 9.8 fl (6.2-12.0); Monocyte# 0.58 X10^3/uL; Monocyte% 7.7 % (0-10); NRBC Flagged by Analyzer 0 % (0-5); Neutrophil # 5.36 X10^3/uL (2.7-7.7); Neutrophil % 70.9 % (47-70); Platelet Count 300 K/mm3 (150-450); RBC Distribution Width CV 14.6 % (11.6-14.6); Red Blood Count 4.57 M/mm3 (4.2-5.4); White Blood Count 7.6 K/mm3 (4.4-11.0)
[2023-05-24 16:24] LABS: Vitamin D,25 Hydroxy 23.2 ng/mL
[2023-05-24 19:39] LABS: ALB/GLOB Ratio 0.8 RATIO (0.9-2.4); AST(SGOT) 18 U/L (15-37); Alanine Aminotransfer ALT/SGPT 21 U/L (13-56); Albumin, Serum 3.1 g/dL (3.2-5.0); Alkaline Phosphatase 132 U/L (45-117); Anion Gap 6 (5-15); BUN 18 mg/dL (7-18); BUN/Creat Ratio 22.6 RATIO (10-20); Calcium,Total 8.5 mg/dL (8.5-10.1); Chloride 107 mmol/L (98-107); EST Glomerular Filtration Rate 74 mL/min (>60); Est Glom Filt Rate - Afr Amer 89 mL/min (>60); Globulin 3.9 g/dL (2.2-4.2); Glucose 86 mg/dL (74-106); Potassium 3.7 mmol/L (3.5-5.1); Sodium Level 143 mmol/L (136-145)
== END | disposition home or self-care (01) ==
PROVIDERS: PCP Family Medicine Geriatric Medicine; Referring Provider Family Medicine Geriatric Medicine; Visit Provider Family Medicine Geriatric Medicine
DX: I10 Essential (primary) hypertension (principal); E55.9 Vitamin D deficiency, unspecified
CPT/HCPCS: 36415; 71046; 80053; 82306; 84443; 85025

== ENCOUNTER → 2023-07-26 | Outpatient (CLI) | payer MEDICARE, OTHER, SELFPAY ==
--- NOTE | 2023-07-26 13:41 | PFTCOMP_ITS ---
COMPLETE PULMONARY FUNCTION TEST INTERPRETATION Brief HPI: Patient is an 82-year-old female, currently under the care of Dr. Sales, who presents to [facility] for complete pulmonary function tests secondary to diagnosis of COPD. Respiratory therapist reports good effort and reproducible results. Interpretation: Forced expiration spirometry shows a moderately severe large airways obstructive ventilatory defect with an FEV1 of 55% predicted. There is a significant bronchodilator response in FVC by strict ATS criteria. Spirograms are of good quality and plateau slowly, indicating slowly emptying areas of the lungs. The respiratory flow volume loop shows decreased expiratory flow rates at all lung volumes consistent with airway obstruction. Lung volumes by body plethysmography show a normal total lung capacity at 4 L, 94% predicted. FRC and RV are elevated out of proportion. Lung volume measurements are consistent with air-trapping. Diffusion capacity by carbon monoxide is decreased at 49% predicted. The airway resistance is elevated. No previous pulmonary function tests were available for review. Impression: Partially reversible moderately severe large airways obstructive ventilatory defect, resulting in air trapping, and a symmetric reduction in diffusion capacity
== END | disposition home or self-care (01) ==
LOC: PSN 09:19
PROVIDERS: PCP Family Medicine Geriatric Medicine; Referring Provider Internal Medicine Critical Care Medicine; Visit Provider Internal Medicine Critical Care Medicine
DX: J44.89 Other specified chronic obstructive pulmonary disease (principal)
CPT/HCPCS: 94060; 94726; 94729

== ENCOUNTER → 2023-07-31 | Outpatient (CLI) | payer MEDICARE, OTHER, SELFPAY ==
[2023-07-31 11:15] VITALS: PULSE 104; PULSE 106; PULSE 115; PULSE 121; PULSE 131; PULSE 83; PULSE 96; O2SAT 82; O2SAT 89; O2SAT 90; O2SAT 91; O2SAT 92; O2SAT 95; O2SAT 98
--- NOTE | 2023-07-31 11:49 | CPS ---
pt arrived on room air. Sats 92%. At 2 min of ambulation she dropped to 82% and i placed her on 3L NC. she walked the remainder of test on 3L with sats staying 91% and above. Pt states she has oxygen at home currently and isnt compliant with wearing it.
--- NOTE | 2023-08-02 10:20 | PCM.PSN.6M ---
PSN 6 Minute Walk Test 6 Minute Walk Test 6 Minute Walk Test: 6 Minute Walk Test PSN:6-Minute Walk Test Start: 07/31/23 11:41 Freq: Status: Active Protocol: [id number] Document 07/31/23 11:15 EW (Rec: 07/31/23 11:50 EW [id number]) 6 Minute Walk Test Date Performed 07/31/23 Time Performed 11:15 Height 5 ft Weight: 150 lb Weight in Pounds 150.[address]: Jorge Sales Assistive device used: None Pre-test Oxygen Delivery Method Room Air Pulse Ox 92 Pulse Rate (60-100) 83 Dyspnea Brown Scale (0-10) 2 Exertion Brown Scale (6-20) 6 1st minute Oxygen Delivery Method Room Air Pulse Ox 90 Pulse Rate (60-100) 104 H 2nd minute Oxygen Delivery Method Room Air Pulse Ox 82 Pulse Rate (60-100) 115 H 3rd minute Oxygen Flow Rate (L/min) 3 Oxygen Delivery Method Nasal Cannula Pulse Ox 95 Pulse Rate (60-100) 106 H 4th minute Oxygen Flow Rate (L/min) 3 Oxygen Delivery Method Nasal Cannula Pulse Ox 95 Pulse Rate (60-100) 106 H 5th minute Oxygen Flow Rate (L/min) 3 Oxygen Delivery Method Nasal Cannula Pulse Ox 91 Pulse Rate (60-100) 121 H Reported Symptoms Increased Work of Breathing 6th minute Oxygen Flow Rate (L/min) 3 Oxygen Delivery Method Nasal Cannula Pulse Ox 89 Pulse Rate (60-100) 131 H Reported Symptoms Increased Work of Breathing Post-test Oxygen Flow Rate (L/min) 3 Oxygen Delivery Method Nasal Cannula Pulse Ox 98 Pulse Rate (60-100) 96 Dyspnea Brown Scale (0-10) 4 Exertion Brown Scale (6-20) 13 Reported Symptoms Increased Work of Breathing Full Laps Walked 15 Partial Lap, Number of Tiles Walked 0 Total Distance Walked (ft) 885 07/31/23 11:49 Cardiopulmonary Services by Shannan Irvin pt arrived on room air. Sats 92%. At 2 min of ambulation she dropped to 82% and i placed her on 3L NC. she walked the remainder of test on 3L with sats staying 91% and above. Pt states she has oxygen at home currently and isnt compliant with wearing it. Initialized on 07/31/23 11:49 - END OF NOTE Interpretation Interpretation: The patient ambulated 885 feet over the course of 6 minutes beginning on room air without assistive devices. Pretesting oxygen saturation was noted to be 92% on room air. With ambulation, the george oxygen saturation was 82%, requiring the initiation of supplemental oxygen at 3 L/min to maintain appropriate saturations. Recommendations Recommendations: 3 L/min of supplemental oxygen should be utilized with exertion.
== END | disposition home or self-care (01) ==
LOC: PSN 11:09
PROVIDERS: PCP Family Medicine Geriatric Medicine; Referring Provider Internal Medicine Critical Care Medicine; Visit Provider Internal Medicine Critical Care Medicine
DX: J44.89 Other specified chronic obstructive pulmonary disease (principal)
CPT/HCPCS: 94618

== ENCOUNTER → 2023-08-13 | Outpatient (CLI) | payer MEDICARE, OTHER, SELFPAY ==
--- NOTE | 2023-08-13 | CYSPIN_PTH ---
PATHOLOGY RESULTS PATIENT: IRIS PENNY LOC: [facility] #:[id number] AGE/SX: 82/F ROOM: RE08/13/[address]: Dr. Ani Cummins MD : 1940 BED: DIS: 08/13/2023 SPEC #: [id number] RECD: 08/14/23 07:34 STATUS: DAVID LU #: [id number] STEFANO: 08/13/23 00:[address]: Ani Cummins DEPT: CYTOLOGY RECD BY: Kalani Coelho ENTERED: 08/14/23 07:35 SP TYPE: CYSPIN FL OTHR DR: Dr. Adebayo Kaba MD Tissues: Urine Procedures: Pap Stain (control) Special Stain Group II Cytospin Fluid HEADER OPERATION: Not noted PRE-OP DIAGNOSIS: Gross hematuria TISSUE SUBMITTED: Urine for cytology DIAGNOSIS CYTOLOGY Urine for cytology (cytospin): Negative for high-grade urothelial carcinoma (NHGUC), Carmen System Category II. Acute inflammation and abundant bacteria. See comment. AM:elizabeth 08/14/2023 COMMENT Clinical correlation is suggested. The Carmen System for urine cytology diagnostic categorization was used in the evaluation of this case. CYTOLOGY STUDY Slides are reviewed. CYTOLOGY GROSS Received is 45 ml of reddish-brown cloudy fluid labeled with the patient's name and and designated per the requisition as urine. Submitted for cytology preparation. / elizabeth 08/13/2023 TC:2 CPT: 37375
[2023-08-13 16:40] LABS: Cytology, Body Fluid / CSF SEE PATHOLOGY REPORT
--- OUTSIDE RECORDS SUMMARY | 2023-08-13 19:02 | XMS RPT_ITS | CCD ---
Author Name Unknown Address [address] [place] [address] Organization [facility] Care Team Providers Care Special Effects Technician Name Role Phone GENESIS, SHRUTI E Unavailable Unavailable GENESIS, SHRUTI E Unavailable Unavailable GENESIS, SHRUTI Unavailable Unavailable GENESIS, SHRUTI Unavailable Unavailable GENESIS, SHRUTI Unavailable Unavailable GENESIS, SHRUTI Unavailable Unavailable Rodrigo FINISH MENDER, Rosa N Unavailable Unavailab le Rodrigo FINISH MENDER, Rosa N Unavailable Unavailab le Cogar FINISH MENDER, Jackie N Unavailable [phone] Kerline, Nichole Chi Primary Care Provider Kerline, Nichole Chi Primary Care Provider [phone] KERLINE HAMMER, DR GOMEZ Primary Care Physician JOS HAMMER, DR OGLESBY Attending Unavailrosa CHURCHILL MD, DR GOMEZ Primary Care Unavailable JOS HAMMER, DR OGLESBY Attending Unavailrosa CHURCHILL MD, DR GOMEZ Primary Care Unavailable Kerline, Nichole Chi Primary Care Provider [phone] AYE BELTRAN Attending Unavailable AYE BELTRAN Referring Unavailable KERLINE, NICHOLE CHI Primary Care Unavailable KERLINE, NICHOLE CHI Primary Care Unavailable MD GIBBS GREGORY Attending Unavailable AYE BELTRAN Referring Unavailable KERLINE, NICHOLE CHI Primary Care Unavailable Allergies Allergy Classification Reported Allergen(s) Allergy Type Date of Onset Reaction(s) Facility (9 sources) azithromycin; Translations: [AZITHROMYCIN] Drug Allergy 9 [facility] Rep[facility] (9 sources) Bee; Translations: [BEES] Propensity to adverse reactions (disorder) 7 [facility] (9 sources) MOSQUITOS; Translations: [MOSQUITOS] Propensity to adverse reactions (disorder) 7 [facility] (2 sources) BUGS drug allergy 7 [facility] Work Phone: Medications Current Medications Medication Drug Class(es) Dates Sig (Normalized) Sig (Original) atorvastatin 40 mg oral tablet (9 sources) HMG-CoA Reductase Inhibitor Start: 12-29-2022 take 1 tablet by mouth once daily atorvastatin 40 mg oral tablet TAKE 1 TABLET BY MOUTH ONCE DAILY FOR 90 DAYS Start Date: 12/29/22 Status: Ordered Completed/Discontinued Medications Medication Drug Class(es) Dates Sig (Normalized) Sig (Original) albuterol 5 mg/ml inhalation solution (4 sources) beta2-Adrenergic Agonist Start: 10-25-2021 End: 10-25-2021 albuterol (PROVENTIL) 5 mg/mL nebu Inhale 0.5 mL as instructed one time only for 1 dose. 1 DOSE NOW - BACK OFFICE. PLACE 0.5 ML PER DROPPER AND 2.5 ML OF NORMAL SALINE INTO RESERVOIR. 1 mL 0 10/25/2021 10/25/2021 Discontinued Problems Active Problems Problem Classification Problem Date Documented Date Episodic/Chronic Chronic obstructive pulmonary disease and bronchiectasis (6 sources) Chronic obstructive lung disease; Translations: [Chronic obstructive pulmonary disease, unspecified] 05-09-2005 Chronic Conduction disorders (9 sources) Left bundle branch block; Translations: [Left bundle-branch block, unspecified] Onset: 04-30-2019 Chronic Coronary atherosclerosis and other heart disease (11 sources) Atherosclerotic heart disease of mi'kmaq coronary artery without angina pectoris; Translations: [Coronary atherosclerosis] Onset: 06-27-2017 Chronic Disorders of lipid metabolism (9 sources) Mixed hyperlipidemia; Translations: [Mixed hyperlipidemia] Chronic Esophageal disorders (6 sources) Gastroesophageal reflux disease; Translations: [Gastro-esophageal reflux disease without esophagitis] Onset: 11-14-2006 11-14-2006 Chronic Essential hypertension (10 sources) Essential (primary) hypertension; Translations: [Benign essential hypertension] Onset: 05-16-2006 Chronic Genitourinary symptoms and ill-defined conditions (6 sources) Incontinence; Translations: [Mixed incontinence] Onset: 12-12-2006 12-12-2006 Chronic Heart valve disorders (2 sources) Mitral valve regurgitation; Translations: [Nonrheumatic mitral (valve) insufficiency] Chronic Hemorrhoids (6 sources) Internal hemorrhoids; Translations: [Other hemorrhoids] 10-31-2005 Episodic Occlusion or stenosis of precerebral arteries (7 sources) Bilateral stenosis of carotid arteries; Translations: [Occlusion and stenosis of bilateral carotid arteries] Onset: 04-30-2019 Chronic Osteoporosis (6 sources) Osteoporosis; Translations: [Other osteoporosis without current pathological fracture] 05-09-2005 Chronic Other and unspecified benign neoplasm (6 sources) Benign neoplasm of colon; Translations: [Benign neoplasm of colon, unspecified] 10-31-2005 Episodic Other lower respiratory disease (1 source) Dyspnea; Translations: [Shortness of breath] 04-02-2023 Episodic Other screening for suspected conditions (not mental disorders or infectious disease) (1 source) Oxygen saturation below reference range; Translations: [Abnormal blood-gas level] 02-16-2023 Episodic Other screening for suspected conditions (not mental disorders or infectious disease) (1 source) No current problems or disability 04-02-2017 Other upper respiratory infections (1 source) Chronic sinusitis; Translations: [Chronic sinusitis, unspecified] Chronic Prolapse of female genital organs (6 sources) Incomplete uterovaginal prolapse; Translations: [Incomplete uterovaginal prolapse] Onset: 12-12-2006 12-12-2006 Chronic Pulmonary heart disease (6 sources) Saddle embolus of pulmonary artery; 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] Onset: 06-14-2021 06-14-2021 Chronic Substance-related disorders (6 sources) Tobacco user; Translations: [Nicotine dependence, unspecified, uncomplicated] Onset: 03-28-2006 03-28-2006 Chronic Unclassified (1 source) Unknown / UNK(Unknown) Onset: 06-27-2017 Past or Other Problems Problem Classification Problem Date Documented Da te Episodic/Chronic Urinary tract infections (2 sources) Urinary tract infectious disease; Translations: [Urinary tract infection, site not specified] Onset: 04-02-2017 04-02-2017 Episodic Results Test Name Value Interpretation Reference Range Facil ity Vital Signs Date Time Vital Sign Value Performing Clinician Facility 04-02-2023 14:26-0400 Body height 154.9 cm Aye Beltran APRN.[employer] Work Phone: [facility] 04-02-2023 14:26-0400 Body weight 68.04 kg Ayeaissatou Beltran CLIENT ACCOUNT MANAGER.[employer] Work Phone: [facility] 04-02-2023 14:26-0400 Diastolic blood pressure 74 mm[Hg] Aye Beltran CLIENT ACCOUNT MANAGER.[employer] Work Phone: [facility] 04-02-2023 14:26-0400 Heart rate 61 /min Aye Beltran CLIENT ACCOUNT MANAGER.[employer] Work Phone: [facility] 04-02-2023 14:26-0400 SaO2% (BldA) [Mass fraction] 94 % Aye Beltran CLIENT ACCOUNT MANAGER.[employer] Work Phone: [facility] 04-02-2023 14:26-0400 Systolic blood pressure 132 mm[Hg] Aye Beltran CLIENT ACCOUNT MANAGER.[employer] Work Phone: [facility] 02-16-2023 13:54-0400 Body temperature 98.8 [degF] Zoraida Gomez APRN.[employer] Work Phone: [facility] 02-16-2023 13:54-0400 Body weight 64.23 kg Zoraida Gomez APRN.[employer] Work Phone: [facility] 02-16-2023 13:54-0400 Diastolic blood pressure 73 mm[Hg] Zoraida Gomez APRN.[employer] Work Phone: [facility] 02-16-2023 13:54-0400 Heart rate 87 /min Zoraida Gomez APRN.[employer] Work Phone: [facility] 02-16-2023 13:54-0400 Respiratory rate 28 /min Zoraida Gomez APRN.[employer] Work Phone: [facility] 02-16-2023 13:54-0400 SaO2% (BldA) [Mass fraction] 85 % Zoraida Gomez APRN.[employer] Work Phone: [facility] 02-16-2023 13:54-0400 Systolic blood pressure 129 mm[Hg] Zoraida Gomez APRN.[employer] Work Phone: [facility] 12-29-2022 09:02-0400 Heart rate 66 /min DR MENDEL ARGUELLO MD [facility] 12-29-2022 09:02-0400 Respiratory rate 18 /min DR MENDEL ARGUELLO MD [facility] 12-29-2022 08:56-0400 Diastolic Blood Pressure Non-Invasive [address] MENDEL ARGUELLO MD [facility] 12-29-2022 08:56-0400 Heart rate 64 /min DR MENDEL ARGUELLO MD [facility] 12-29-2022 08:56-0400 Respiratory rate 14 /min DR MENDEL ARGUELLO MD [facility] 12-29-2022 08:56-0400 Systolic Blood Pressure Non-Invasive [address] MENDEL ARGUELLO MD [facility] 12-29-2022 08:45-0400 Body temperature 96.62 [degF] DR MENDEL ARGUELLO MD [facility] 12-29-2022 08:45-0400 Diastolic Blood Pressure Non-Invasive [address] MENDEL ARGUELLO MD [facility] 12-29-2022 08:45-0400 Heart rate 71 /min DR MENDEL ARGUELLO MD [facility] 12-29-2022 08:45-0400 Respiratory rate 15 /min DR MENDEL ARGUELLO MD [facility] 12-29-2022 08:45-0400 Systolic Blood Pressure Non-Invasive [address] MENDEL ARGUELLO MD [facility] 12-29-2022 08:40-0400 Respiratory Rate - Anes 22 br/min DR MENDEL ARGUELLO MD [facility] 12-29-2022 08:35-0400 Diastolic Blood Pressure Non-Invasive [address] MENDEL ARGUELLO MD [facility] 12-29-2022 08:35-0400 Respiratory Rate - Anes 25 br/min DR MENDEL ARGUELLO MD [facility] 12-29-2022 08:35-0400 Systolic Blood Pressure Non-Invasive [address] MENDEL ARGUELLO MD [facility] 12-29-2022 08:30-0400 Respiratory Rate - Anes 25 br/min DR MENDEL ARGUELLO MD [facility] 12-29-2022 07:15-[address] MENDEL ARGUELLO MD [facility] 12-29-2022 07:15-[address] MENDEL ARGUELLO MD [facility] 12-29-2022 07:15-0400 Body height 152.[address] MENDEL ARGUELLO MD [facility] 12-29-2022 07:15-0400 Body temperature 97.34 [degF] DR MENDEL ARGUELLO MD [facility] 12-29-2022 07:15-0400 Body weight 65.[address] MENDEL ARGUELLO MD [facility] 12-29-2022 07:15-0400 Body weight 28.37 kg/m2 DR MENDEL ARGUELLO MD [facility] 12-29-2022 07:15-0400 Heart rate 57 /min DR MENDEL ARGUELLO MD [facility] 03-16-2022 13:39-0400 Body height 154.9 cm Aye Beltran CLIENT ACCOUNT MANAGER.[employer] Work Phone: [facility] 03-16-2022 13:39-0400 Body weight 68.9 kg Aye Beltran CLIENT ACCOUNT MANAGER.[employer] Work Phone: [facility] 03-16-2022 13:39-0400 Diastolic blood pressure 70 mm[Hg] Aye Beltran CLIENT ACCOUNT MANAGER.[employer] Work Phone: [facility] 03-16-2022 13:39-0400 Heart rate 54 /min Aye Beltran CLIENT ACCOUNT MANAGER.[employer] Work Phone: [facility] 03-16-2022 13:39-0400 SaO2% (BldA) [Mass fraction] 94 % Aye Beltran CLIENT ACCOUNT MANAGER.[employer] Work Phone: [facility] 03-16-2022 13:39-0400 Systolic blood pressure 152 mm[Hg] Aye Beltran CLIENT ACCOUNT MANAGER.[employer] Work Phone: [facility] 10-25-2021 17:13-0400 SaO2% (BldA) [Mass fraction] 94 % Kendra Athy PA-C Work Phone: [facility] 10-25-2021 16:21-0400 Body temperature 97.2 [degF] Kendra Athy PA-C Work Phone: [facility] 10-25-2021 16:21-0400 Body weight 68.58 kg Kendra Athy PA-C Work Phone: [facility] 10-25-2021 16:21-0400 Diastolic blood pressure 62 mm[Hg] Kendra Athy PA-C Work Phone: [facility] 10-25-2021 16:21-0400 Heart rate 55 /min Kendra Athy PA-C Work Phone: [facility] 10-25-2021 16:21-0400 Respiratory rate 24 /min Kendra Athy PA-C Work Phone: [facility] 10-25-2021 16:21-0400 Systolic blood pressure 124 mm[Hg] Kendra Gupta PA-C Work Phone: [facility] 09-13-2021 14:27-0400 Body height 154.9 cm Leandro Gibbs DO Work Phone: [facility] 09-13-2021 14:27-040 Body weight 70.81 kg Leandro Gibbs DO Work Phone: [facility] 09-13-2021 14:27-0400 Diastolic blood pressure 70 mm[Hg] Leandro Gibbs DO Work Phone: [facility] 09-13-2021 14:27-0400 Heart rate 47 /min Leandro Gibbs DO Work Phone: [facility] 09-13-2021 14:27-0400 SaO2% (BldA) [Mass fraction] 94 % Leandro Gibbs DO Work Phone: [facility] 09-13-2021 14:27-0400 Systolic blood pressure 120 mm[Hg] Leandro Gibbs DO Work Phone: [facility] 04-02-2017 17:21-0400 BMI (Body Mass Index) 31.82 kg/m2 Rosa Wallace LPN [facility] Work Phone: 04-02-2017 17:21-0400 Body Temperature 97.9 [degF] Rosa Wallace LPN [facility] Work Phone: 04-02-2017 17:21-0400 BP Diastolic 78 mm[Hg] Rosa Wallace LPN [facility] Work Phone: 04-02-2017 17:21-0400 BP Systolic 142 mm[Hg] Rosa Wallace LPN [facility] Work Phone: 04-02-2017 17:21-0400 Height 154.94 cm Rosa Wallace LPN [facility] Work Phone: 04-02-2017 17:21-0400 Pulse (Heart Rate) 98 /min Rosa Wallace LPN [facility] Work Phone: 04-02-2017 17:21-0400 Respiratory Rate 17 /min Rosa Wallace LPN [facility] Work Phone: 04-02-2017 17:21-0400 Weight 76.39 kg Rosa Wallace LPN [facility] Work Phone: Encounters Encounter Date Encounter Type Care Provider Facility Start: 04-02-2023 End: 04-02-2023 ambulatory AYE BELTRAN Facility:[facility] Start: 04-02-2023 End: 04-02-2023 Office outpatient visit 15 minutes Aye Beltran CLIENT ACCOUNT MANAGER.[employer] Work Phone: Cardiology Procedures Date Procedure Procedure Detail Performing Clinician Start: 04-02-2023 Ecg routine ecg w/le ast 12 lds i&r only [facility] Provider Start: 12-29-[address] MENDEL ARGUELLO MD Start: 09-23-2019 Echocardiography Start: 04-02-2017 End: 04-02-2017 Urinalysis Rosa Wallace LPN Start: 04-02-2017 End: 04-02-2017 Urnls dip stick/tablet rgnt non-auto w/o micrscp Shant BLOUNT Work Phone: Colonoscopy DR MENDEL CROOK MD Lobectomy of lung DR MENDEL ARGUELLO MD Plan of Treatment Date Care Activity Detail Author Start: 02-23-2023 Covid-19 Vaccine ( season) Covid-19 Vaccine ( season) [facility] Start: 02-23-2023 Influenza vaccination INFLUENZA (#1) [facility] Start: 10-25-2022 BP CONTROLLED (<130/80) BP CONTROLLED (<130/80) [facility] Start: 09-13-2022 BP CONTROLLED (<130/80) BP CONTROLLED (<130/80) [facility] Start: 08-11-2022 COVID-19 VACCINE (6 - Moderna series) COVID-19 VACCINE (6 - Moderna series) [facility] Start: 06-25-2022 ADVANCE DIRECTIVE DISCUSSION ADVANCE DIRECTIVE DISCUSSION [facility] Start: 06-25-2022 DEPRESSION ASSESSMENT DEPRESSION ASSESSMENT [facility] Start: 02-23-2022 Influenza vaccination [facility] Start: 11-19-2021 DIABETES SCREEN DIABETES SCREEN [facility] Start: 11-19-2021 Diabetes Screening Diabetes Screening [facility] Start: 10-25-2021 End: 11-08-2021 Influenza virus A and B RNA and SARS-CoV-2 (COVID-19) N gene panel - Respiratory specimen by PRINCESS with probe detection COVID WITH FLUA+B, ROUTINE Microbiology Routine Sinobronchitis Expected: 10/25/2021, Expires: 11/08/2021 [facility] Work Phone: Immunizations Immunization Date Immunization Notes Care Provider Balwinder cox 04-23-2007 influenza virus vacc ine, unspecified formulation Leandro Gibbs DO Work Phone: [facility] Work Phone: 05-10-2005 pneumococcal polysaccharide vaccine, 23 valent Leandro Gibbs DO Work Phone: [facility] Work Phone: 05-10-2005 tetanus and diphther ia toxoids, adsorbed, preservative free, for adult use (2 Lf of tetanus toxoid and 2 Lf of diphtheria toxoid) Leandro Sylvia DO Work Phone: [facility] Work Phone: Payers Date Payer Category Payer Medicare THP MEDICARE SUP PLEMENT 2ND THP MEDICARE SUPPLEMENT 2ND [id number] 2015-Present [phone] [address] [place] [address] Indemnity [id number] 2015 Unknown [id number] 2006 Medicare MEDICARE MEDICAR E A AND B [id number] 2006-Present [phone] [place] [address] Medicare [id number] 2006 Medicare [id number] 2006 Medicare [id number] 1940 Unknown [id number] 1940 Unknown [id number] Medicare [id number] Social History Date Type Detail Facility Start: 03-16-2022 End: 12-29-2022 Tobacco smoking status NHIS Ex-smoker [facility] End: 04-16-2006 History of tobacco use Current smoker [facility] Start: 09-13-2021 End: 04-02-2023 Alcohol intake Ex-drinker (finding) [facility] Start: 1940 Sex Assigned At Not on file [facility] End: 04-16-2006 History of tobacco use Cigarette Smoker [facility] Start: 03-16-2022 Tobacco use and exposure Smoke less tobacco non-user [facility] Sex Assigned At Female [facility] Start: 05-30-2020 End: 02-16-2023 History of Social function [facility] Start: 05-30-2020 End: 02-16-2023 Tobacco use panel [facility] National Score (1-10 0), lower number is lower risk Not on file [facility] Functional Status Date Assessment Result Facility 12-29-2022 Functional Status Awake, Resting [facility] 12-29-2022 Functional Status Maintained [facility] Mental Status Date Assessment Result Facility 12-29-2022 Mental Status Orientation Oriented x 4 [facility] 12-29-2022 Mental Status [facility] Clinical Notes 04-30-2019 to 04-02-2023 Patient InstructionsAye Beltran APRN.[facility]OBEL - 04/02/2023 2:30 PM EDTZoraida Gomez APRN.[facility] - 02/16/2023 1:50 PM EDT Note Date & Type Note Facility 04-02-2023 Note HNO ID: [id number] Author: Aye Beltran APRN.[facility]OB[facility] Service: ? Author Type: Nurse Practitioner Type: Progress Notes Filed: 04/02/2023 3:33 PM Note Text: [facility] [place] Madiha Schrader Department of Cardiovascular Medicine SECTION OF CLINICAL CARDIOLOGY OUTPATIENT VISIT DATE April 02, 2023 OUTPATIENT VISIT TYPE ESTABLISHED Elements of this note, including but not limited to HPI, ROS, Physical Exam, Assessment and Plan were copied and pasted from previous office visit notes completed within our department. Updates have been made where appropriate/noted and reflect current exam and medical decision making from date of this visit. Patient Name: Iris Jimenez : 1940 PRIMARY CARE PHYSICIAN: Nichole Churchill MD CHIEF COMPLAINT: Patient presents with: CARD Follow Up 6 Month: No new cardiac concerns. Recovering from pneumonia Interval Hx: Ms. Jimenez comes for a follow up visit. The last office visit visit with Dr. Gibbs was 09/14/2022. Patient with 1 hospitalizations or ER visits since last OV. Patient is currently being treated for PNA and has had a recent cold Has been on some rounds of abx and started on Symbicort. Raspy and horse. No chest pain Has fatigue SOB increase from baseline Has some fatigue Not dizzy or lightheadedness. + LE edema L>R No palps No missed dose of medications No GI/ bleeding on Eliquis No syncope No falls Appetite is fair Fluid intake is fair - Pepsi. Had recent dose of Prednisone but is off now. Not checking BP at home IMPRESSION/PLAN: 1.CAD - dx 2001 - triple vessel CAD recommended for medical management - on BB and statin - she reports that ASA was stopped but another provider. - was on on long acting nitrates in the past - this has been discontinued - echo 06/2021 showed preserved EF 55% - recheck this. - appears compensated from cardiac standpoint. 2. HTN - Good control in the office today - Continue Lopressor and Linsiopril - no medication changes today 3. HLD - LDL 2019 = 93 - not at goal - check fasting labs with PCP - goal LDL less than 70 - may need to add Zetia for better LDL control 4.LBBB - chronic 5. SOB - recently treated for PNA - increased from basline - echo 06/29/2021 shows EF 55%, NO LAE, MV calcification with 1-2 + MVR 6.Mitral valve insufficiency - echo 06/29/2021 shows EF 55%, MV calcification with 1-2 + MVR 7.Asthma/COPD 8.PE - on Eliquis 5 mg BID I spent a total of 20 minutes on the date of the service which included preparing to see the patient, [id number] patient care, completing clinical documentation, performing a medically appropriate examination, counseling and educating the patient/family/caregiver, ordering medications, tests, or procedures, and independently interpreting results (not separately reported). Thank you very much for allowing me to assist in the care of Iris Jimenez. The above information was discussed at length and detail with the patient who verbalized an understanding of the plan and was given ample opportunity to ask questions. The appropriate follow up has been arranged. I have advised the patient to contact me if any questions/problems arise prior to the follow up. Aye Beltran APRN.[facility] Cardiology Nurse Practitioner Section of Regional Cardiology [facility] Dept of Cardiovascular Medicine [facility] [place] [address] Office Office April 02, 2023 12:59 PM This note was partially generated using [employer] voice recognition system and may contain errors related to that system including grammar, punctuation, spelling, and words that may be inappropriate. CARDIAC STUDIES: LV Ejection Fraction (%) Date Value 06/29/2021 55 03/06/2018 59 04/26/2011 65 03/26/2003 55 LABS: Sodium (mmol/L) Date Value 11/19/2018 138 10/28/2018 142 Potassium (mmol/L) Date Value 11/19/2018 4.5 10/28/2018 4.4 BUN (mg/dL) Date Value 11/19/2018 17 10/28/2018 16 02/26/2018 16 10/20/2008 10 Creatinine (mg/dL) Date Value 11/19/2018 0.87 10/28/2018 0.78 02/26/2018 0.92 10/20/2008 0.83 Magnesium (mg/dL) Date Value 02/26/2018 1.9 No results found for: HB No results found for: PROBNP No results found for: HSTNT Cholesterol, Total (mg/dL) Date Value 06/27/2017 173 Total Cholesterol, Nonfasting (mg/dL) Date Value 10/28/2018 172 HDL Cholesterol (mg/dL) Date Value 06/27/2017 54 HDL Cholesterol, Nonfasting (mg/dL) Date Value 10/28/2018 57 Triglyceride (mg/dL) Date Value 06/27/2017 120 Triglycerides, Nonfasting (mg/dL) Date Value 10/28/2018 110 LDL Cholesterol (mg/dL) Date Value 06/27/2017 95 LDL Cholesterol, Nonfasting (mg/dL) Date Value 10/28/2018 93 No results found for: TSH No results found for: INR (more content not included)... [facility] 04-02-2023 Instructions Aye Beltran APRN.CNP - 04/02/2023 2:52 PM EDT Continue metoprolol, lisinopril and Eliquis. Schedule an updated echo at your convenience. You can get this in [place] - at the [facility] in [place] You are due for cholesterol from Dr. Churchill documented in this encounter [facility] 04-02-2023 History of Present illness Narrative Heart and Vascular [place] Madiha Schrader Department of Cardiovascular Medicine SECTION OF CLINICAL CARDIOLOGY OUTPATIENT VISIT DATE April 02, 2023 OUTPATIENT VISIT TYPE ESTABLISHED Elements of this note, including but not limited to HPI, ROS, Physical Exam, Assessment and Plan were copied and pasted from previous office visit notes completed within our department. Updates have been made where appropriate/noted and reflect current exam and medical decision making from date of this visit. Patient Name: Iris Jimenez : 1940 PRIMARY CARE PHYSICIAN: Nichole Churchill MD CHIEF COMPLAINT: Patient presents with: CARD Follow Up 6 Month: No new cardiac concerns. Recovering from pneumonia Interval Hx: Ms. Jimenez comes for a follow up visit. The last office visit visit with Dr. Gibbs was 09/14/2022. Patient with 1 hospitalizations or ER visits since last OV. Patient is currently being treated for PNA and has had a recent cold Has been on some rounds of abx and started on Symbicort. Raspy and horse. No chest pain Has fatigue SOB increase from baseline Has some fatigue Not dizzy or lightheadedness. + LE edema L>R No palps No missed dose of medications No GI/ bleeding on Eliquis No syncope No falls Appetite is fair Fluid intake is fair - Pepsi. Had recent dose of Prednisone but is off now. Not checking BP at home IMPRESSION/PLAN: 1.CAD - dx 2001 - triple vessel CAD recommended for medical management - on BB and statin - she reports that ASA was stopped but another provider. - was on on long acting nitrates in the past - this has been discontinued - echo 06/2021 showed preserved EF 55% - recheck this. - appears compensated from cardiac standpoint. 2. HTN - Good control in the office today - Continue Lopressor and Linsiopril - no medication changes today 3. HLD - LDL 2019 = 93 - not at goal - check fasting labs with PCP - goal LDL less than 70 - may need to add Zetia for better LDL control 4.LBBB - chronic 5. SOB - recently treated for PNA - increased from basline - echo 06/29/2021 shows EF 55%, NO LAE, MV calcification with 1-2 + MVR 6.Mitral valve insufficiency - echo 06/29/2021 shows EF 55%, MV calcification with 1-2 + MVR 7.Asthma/COPD 8.PE - on Eliquis 5 mg BID I spent a total of 20 minutes on the date of the service which included preparing to see the patient, eiwg-wh-[id number] patient care, completing clinical documentation, performing a medically appropriate examination, counseling and educating the patient/family/caregiver, ordering medications, tests, or procedures, and independently interpreting results (not separately reported). Thank you very much for allowing me to assist in the care of Iris Jimenez. The above information was discussed at length and detail with the patient who verbalized an understanding of the plan and was given ample opportunity to ask questions. The appropriate follow up has been arranged. I have advised the patient to contact me if any questions/problems arise prior to the follow up. Aye Beltran APRN.[facility] Cardiology Nurse Practitioner Section of Regional Cardiology [facility] Dept of Cardiovascular Medicine [facility] Heart and Vascular [place] [address] [place] [address] Office Office April 02, 2023 12:59 PM This note was partially generated using [email or web address] recognition system and may contain errors related to that system including grammar, punctuation, spelling, and words that may be inappropriate. CARDIAC STUDIES: LV Ejection Fraction (%) Date Value 06/29/2021 55 03/06/2018 59 04/26/2011 65 03/26/2003 55 LABS: Sodium (mmol/L) Date Value 11/19/2018 138 10/28/2018 142 Potassium (mmol/L) Date Value 11/19/2018 4.5 10/28/2018 4.4 BUN (mg/dL) Date Value 11/19/2018 17 10/28/2018 16 02/26/2018 16 10/20/2008 10 Creatinine (mg/dL) Date Value 11/19/2018 0.87 10/28/2018 0.78 02/26/2018 0.92 10/20/2008 0.83 Magnesium (mg/dL) Date Value 02/26/2018 1.9 No results found for: HB No results found for: PROBNP No results found for: HSTNT Cholesterol, Total (mg/dL) Date Value 06/27/2017 173 Total Cholesterol, Nonfasting (mg/dL) Date Value 10/28/2018 172 HDL Cholesterol (mg/dL) Date Value 06/27/2017 54 HDL Cholesterol, Nonfasting (mg/dL) Date Value 10/28/2018 57 Triglyceride (mg/dL) Date Value 06/27/2017 120 Triglycerides, Nonfasting (mg/dL) Date Value 10/28/2018 110 LDL Cholesterol (mg/dL) Date Value 06/27/2017 95 LDL Cholesterol, Nonfasting (mg/dL) Date Value 10/28/2018 93 No results found for: TSH No results found for: INR EKG completed today shows NSR, possible LAE, LAD, LVH, LBBB I have personally reviewed the Electrocardiogram. PHYSICAL EXAMINATION: Vitals: BP 132/74 Pulse 61 Ht 154.9 cm (5' 1 ) Wt 68 kg (150 lb) SpO2 94% BMI 28.34 kg/m General: Well appearing, in no acute distress. Skin: No clubbing, no cyanosis. Eyes: Extra ocular movements intact Oropharynx: Teeth in good repair. Neck: No jugular venous distention, no carotid bruits, carotids have a normal upstroke, no palpable thyromegaly. Lungs: Clear to auscultation bilaterally, no wheezing or rhonchi. Heart: Regular rhythm, PMI not displaced, S1, S2 normal, no S3, no S4, no heaves, no rub and no murmur. Abdomen: Soft, nontender, bowel sounds normal, no palpable organomegaly, no bruits. Extremities: No peripheral edema . Grade 2/4 distal pulses bilaterally. Neuro: Oriented to person, place and time, alert, cooperative, gait coordinated. REVIEW OF SYSTEMS: GENERAL: Negative for: Weight loss or gain, Fever or Chills, Weakness and Sleep difficulties. HEENT: Negative for: Headache, Impaired Vision, Glasses, Hearing Impairment, Ringing in Ears, Nosebleeds, Poor dental care, Bleeding Gums, Dentures NECK: Negative for: Swelling, Pain, Stiffness RESPIRATORY: Negative for: Cough, Blood in Sputum, Shortness of breath, Wheezing, Apnea GASTROINTESTINAL: Negative for: Trouble swallowing, Heartburn, Change in bowel habits, Blood in stool, Dark black stools MUSCULOSKELETAL: Negative for: Muscle or joint pain, Stiffness , Joint swelling NEUROLOGIC/PSYCHIATRIC: Negative for: Weakness, Paralysis, Numbness, Tingling, Tremor, Nervousness, Depressed mood, Memory loss SKIN: Negative for: Rashes, Itching HEMATOLOGICAL/LYMPHATIC: Negative for: Easy bruising , Easy bleeding ENDOCRINE: Negative for: Heat or cold intolerance, Excessive sweating, Frequent urination, Frequent thirst ALLERGIES: Azithromycin, Bees, and Mosquitos PAST MEDICAL HISTORY: 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 Aye Beltran APRN.[facility] CURRENT MEDICATIONS: Current Outpatient Medications Medication Sig ELIQUIS 5 mg tab(s) Take 5 mg by mouth twice daily. lisinopril (ZESTRIL) 5 mg tablet Take 1 tablet by mouth once daily. citalopram (CELEXA) 20 mg tablet Take 10 mg by mouth once daily. nitroglycerin sublingual (NITROSTAT) 0.4 mg SL tablet Dissolve 1 tablet under the tongue every 5 minutes as needed. metoprolol tartrate, short acting, (LOPRESSOR) 50 mg tablet Take 0.5 tablets by mouth twice daily. atorvastatin (LIPITOR) 80 mg tablet Take 80 mg by mouth once daily. ASPIRIN 81 MG TAB Take 2 tablets daily No current facility-administered medications for this visit. documented in this encounter [facility] 02-16-2023 Note HNO ID: [id number] Author: Zoraida Gomez APRN.[facility] Service: ? Author Type: Nurse Practitioner Type: Progress Notes Filed: 02/16/2023 1:58 PM Note Text: She came in with complaints of cough chest congestion shortness of breath fever chills. Patient only has 1 lung. Patient has history of pulmonary embolisms. Patient's oxygen is anywhere between 81 to 85%. Patient says she is never that low. At this time patient's caregiver was instructed to take her to the emergency room for full evaluation. They are okay with this care plan. [facility] 02-16-2023 History of Present illness Narrative She came in with complaints of cough chest congestion shortness of breath fever chills. Patient only has 1 lung. Patient has history of pulmonary embolisms. Patient's oxygen is anywhere between 81 to 85%. Patient says she is never that low. At this time patient's caregiver was instructed to take her to the emergency room for full evaluation. They are okay with this care plan. documented in this encounter [facility] ADMISSION HISTORY AN D PHYSICIAL CHIEF COMPLAINT: HISTORY OF PRESENT ILLNESS: REVIEW OF SYSTEMS: ACTIVE PROBLEMS: (3) COPD (chronic obstructive pulmonary disease) (59684543) HTN (hypertension) (0762181380) Pulmonary embolism ([id number]) MEDICATIONS: Active Inpt Meds: None Active PRN Meds: None One Time Meds: (Completed) albuterol (albuterol 2.5 mg/3 mL (0.083%) inhalation solution) Start: 12/29/22 8:00:00 EDT, Dose = 2.5 mg, = 3 mL, Inhalation, Once, Stop: 12/29/22 8:00:00 EDT, ,, 12/29/22 7:54:00 EDT Active IV Meds: Lactated Ringers Infusion 1,000 mL (LR 1,000 mL) Start: 12/29/22 7:10:00 EDT, Rate: 50 mL/hr, 12/29/22 7:10:00 EDT ALLERGIES: (1) No Known Medication Allergies FAMILY HISTORY: SOCIAL HISTORY: PHYSICAL EXAM: VITALS: PrsxnvForyOZJjivaEGPwO2REB7DnppZu(kg) 12/29 07:1536.3--[id number]--47/07 65.9 24 Hr Tmax: 36.3 at 12/29 07:15 36 Hr Tmax: 36.3 at 12/29 07:15 Vital Signs are the last 5 in the past 48 hours. Weights display the last 5 within 7 days. Initial Wt: 12/29 65.9 kg 145 lb Current Wt: 12/29 65.9 kg 145 lb GENERAL: HEENT: CARDIOVASCULAR: RESPIRATORY: ABDOMEN: EXREMETIES: NEUROLOGICAL: PSYCHIATRIC: LABS: No 36hr Lab Data DIAGNOSTICS: IMPRESSION: PLAN: History and Physical Update I have examined the patient; reviewed the H&P and there are no changes to the H&P unless noted below. [facility] 07-07-2023 Hospital Discharge instructions Patient Education 12/29/2022 08:52:24 Nausea and Vomiting, Adult Nausea and Vomiting, Adult Nausea is the feeling that you have an upset stomach or that you are about to vomit. Vomiting is when stomach contents are thrown up and out of the mouth as a result of nausea. Vomiting can make you feel weak and cause you to become dehydrated. Dehydration can make you feel tired and thirsty, cause you to have a dry mouth, and decrease how often you urinate. Older adults and people with other diseases or a weak disease-fighting system (immune system) are at higher risk for dehydration. It is important to treat your nausea and vomiting as told by your health care provider. Follow these instructions at home: Watch your symptoms for any changes. Tell your health care provider about them. Follow these instructions to care for yourself at home. Eating and drinking Take an oral rehydration solution (ORS). This is a drink that is sold at pharmacies and retail stores. Drink clear fluids slowly and in small amounts as you are able. Clear fluids include water, ice chips, low-calorie sports drinks, and fruit juice that has water added (diluted fruit juice). Eat bland, thas-mp-tliqta foods in small amounts as you are able. These foods include bananas, applesauce, rice, lean meats, toast, and crackers. Avoid fluids that contain a lot of sugar or caffeine, such as energy drinks, sports drinks, and soda. Avoid alcohol. Avoid spicy or fatty foods. General instructions Take dkzw-cfs-qtmwhjg and prescription medicines only as told by your health care provider. Drink enough fluid to keep your urine pale yellow. Wash your hands often using soap and water. If soap and water are not available, use hand mathematician research. Make sure that all people in your household wash their hands well and often. Rest at home while you recover. Watch your condition for any changes. Breathe slowly and deeply when you feel nauseated. Keep all follow-up visits as told by your health care provider. This is important. Contact a health care provider if: Your symptoms get worse. You have new symptoms. You have a fever. You cannot drink fluids without vomiting. Your nausea does not go away after 2 days. You feel light-headed or dizzy. You have a headache. You have muscle cramps. You have a rash. You have pain while urinating. Get help right away if: You have pain in your chest, neck, arm, or jaw. You feel extremely weak or you faint. You have persistent vomiting. You have vomit that is bright red or looks like black coffee grounds. You have bloody or black stools or stools that look like tar. You have a severe headache, a stiff neck, or both. You have severe pain, cramping, or bloating in your abdomen. You have difficulty breathing, or you are breathing very quickly. Your heart is beating very quickly. Your skin feels cold and clammy. You feel confused. You have signs of dehydration, such as: ?Dark urine, very little urine, or no urine. ?Cracked lips. ?Dry mouth. ?Sunken eyes. ?Sleepiness. ?Weakness. These symptoms may represent a serious problem that is an emergency. Do not wait to see if the symptoms will go away. Get medical help right away. Call your local emergency services (911 in the [place] Do not drive yourself to the hospital. Summary Nausea is the feeling that you have an upset stomach or that you are about to vomit. As nausea getsworse, it can lead to vomiting. Vomiting can make you feel weak and cause you to become dehydrated. Follow instructions from your health care provider about eating and drinking to prevent dehydration. Take mskr-rka-ymbwnco and prescription medicines only as told by your health care provider. Contact your health care provider if your symptoms get worse, or you have new symptoms. Keep all follow-up visits as told by your health care provider. This is important. This information is not intended to replace advice given to you by your health care provider. Make sure you discuss any questions you have with your health care provider. Document Released: 06/11/2006 Document Revised: 10/03/2019 Document Reviewed: 11/19/2018 [employer] Patient Education 2020 [employer] 12/29/2022 08:52:19 Moderate Conscious Sedation, Adult, Care After Moderate Conscious Sedation, Adult, Care After These instructions provide you with information about caring for yourself after your procedure. Your health care provider may also give you more specific instructions. Your treatment has been plannedaccording to current medical practices, but problems sometimes occur. Call your health care provider if you have any problems or questions after your procedure. What can I expect after the procedure? After your procedure, it is common: To feel sleepy for several hours. To feel clumsy and have poor balance for several hours. To have poor judgment for several hours. To vomit if you eat too soon. Follow these instructions at home: For at least 24 hours after the procedure: Do not: ?Participate in activities where you could fall or become injured. ?Drive. ?Use heavy machinery. ?Drink alcohol. ?Take sleeping pills or medicines that cause drowsiness. ?Make important decisions or sign legal documents. ?Take care of children on your own. Rest. Eating and drinking Follow the diet recommended by your health care provider. If you vomit: ?Drink water, juice, or soup when you can drink without vomiting. ?Make sure you have little or no nausea before eating solid foods. General instructions Have a responsible adult stay with you until you are awake and alert. Take omtb-jou-qcjbnhf and prescription medicines only as told by your health care provider. If you smoke, do not smoke without supervision. Keep all follow-up visits as told by your health care provider. This is important. Contact a health care provider if: You keep feeling nauseous or you keep vomiting. You feel light-headed. You develop a rash. You have a fever. Get help right away if: You have trouble breathing. This information is not intended to replace advice given to you by your health care provider. Make sure you discuss any questions you have with your health care provider. Document Released: 04/01/2014 Document Revised: 05/24/2018 Document Reviewed: 09/30/2016 [employer] Patient Education 2020 [employer]. 12/29/2022 08:52:13 Colonoscopy, Adult, Care After Colonoscopy, Adult, Care After This sheet gives you information about how to care for yourself after your procedure. Your health care provider may also give you more specific instructions. If you have problems or questions, contact your health care provider. What can I expect after the procedure? After the procedure, it is common to have: A small amount of blood in your stool for 24 hours after the procedure. Some gas. Mild abdominal cramping or bloating. Follow these instructions at home: General instructions For the first 24 hours after the procedure: ?Do not drive or use machinery. ?Do not sign important documents. ?Do not drink alcohol. ?Do your regular daily activities at a slower pace than normal. ?Eat soft, muwp-zx-wpnvgc foods. Take bcdz-fnx-suyklxo or prescription medicines only as told by your health care provider. Relieving cramping and bloating Try walking around when you have cramps or feel bloated. Apply heat to your abdomen as told by your health care provider. Use a heat source that your healthcare provider recommends, such as a moist heat pack or a heating pad. ?Place a towel between your skin and the heat source. ?Leave the heat on for 20 30 minutes. ?Remove the heat if your skin turns bright red. This is especially important if you are unable to feel pain, heat, or cold. You may have a greater risk of getting burned. Eating and drinking Drink enough fluid to keep your urine pale yellow. Resume your normal diet as instructed by your health care provider. Avoid heavy or fried foods thatare hard to digest. Avoid drinking alcohol for as long as instructed by your health care provider. Contact a health care provider if: You have blood in your stool 2 3 days after the procedure. Get help right away if: You have more than a small spotting of blood in your stool. You pass large blood clots in your stool. Your abdomen is swollen. You have nausea or vomiting. You have a fever. You have increasing abdominal pain that is not relieved with medicine. Summary After the procedure, it is common to have a small amount of blood in your stool. You may also have mild abdominal cramping and bloating. For the first 24 hours after the procedure, do not drive or use machinery, sign important documents, or drink alcohol. Contact your health care provider if you have a lot of blood in your stool, nausea or vomiting, a fever, or increased abdominal pain. This information is not intended to replace advice given to you by your health care provider. Make sure you discuss any questions you have with your health care provider. Document Released: 01/23/2005 Document Revised: 04/03/2018 Document Reviewed: 08/22/2016 [employer] Patient Education 2020 [employer]. Follow Up Care 12/27/2022 07:30:53 With:MENDEL ARGUELLO MD Address: [address] [phone] When: only if needed [facility] 07-07-2023 Note Discharge Instructions Thank you for allowing [facility] to assist you with your healthcare needs. The following is importantdischarge information regarding your hospital visit. Your Care Team JASON CHURCHILL MD What to do next Follow Up Appointments Follow Up with MENDEL ARGUELLO MD When Only if needed Where: [address] [place] [address]- [phone] The Following Activity and Diet Have Been Ordered for You Discharge Activity - Ordered -- NO activity restrictions, 12/29/22 8:43:00 EDT Discharge Diet - Ordered -- Follow the post-operative/post-procedure diet instructions provided by your physician's office.,12/29/22 8:43:00 EDT The Following Equipment Has Been Ordered for You Discharge Home Equipment Discharge Wound Care - Ordered -- Follow the post-operative/post-procedure wound care instructions provided by your physician's office., 12/29/22 8:43:00 EDT Medications Please ask your primary doctor or pharmacist before taking any other medication not listed, including over the counter drugs, herbal medications, vitamins and or supplements as they may interact withyour home medications. What When Instructions Last Dose Unchanged apixaban (Eliquis 5 mg oral tablet) TAKE 1 TABLET BY MOUTH TWICE DAILY Unchanged atorvastatin (atorvastatin 40 mg oral tablet) TAKE 1 TABLET BY MOUTH ONCE DAILY FOR 90 DAYS Unchanged cephalexin (cephalexin 500 mg oral capsule) TAKE 1 CAPSULE BY MOUTH THREE TIMES DAILY Unchanged escitalopram (escitalopram 10 mg oral tablet) TAKE 1 TABLET BY MOUTH ONCE DAILY FOR 90 DAYS Unchanged metoprolol (Metoprolol Tartrate 50 mg oral tablet) TAKE 1/ 2 (ONE-HALF) TABLET BY MOUTH TWICE DAILY FOR 90 DAYS Please take this list to your next doctor s visit. Bring all medications you take, including over the counter medications, herbals and other supplements with you to your doctor s visit. Patients and families are reminded to discard old lists and to update any records with all medication providers or retail pharmacies. Education Materials Nausea and Vomiting, Adult Nausea is the feeling that you have an upset stomach or that you are about to vomit. Vomiting is when stomach contents are thrown up and out of the mouth as a result of nausea. Vomiting can make you feel weak and cause you to become dehydrated. Dehydration can make you feel tired and thirsty, cause you to have a dry mouth, and decrease how often you urinate. Older adults and people with other diseases or a weak disease-fighting system (immune system) are at higher risk for dehydration. It is important to treat your nausea and vomiting as told by your health care provider. Follow these instructions at home: Watch your symptoms for any changes. Tell your health care provider about them. Follow these instructions to care for yourself at home. Eating and drinking Take an oral rehydration solution (ORS). This is a drink that is sold at pharmacies and retail stores. Drink clear fluids slowly and in small amounts as you are able. Clear fluids include water, ice chips, low-calorie sports drinks, and fruit juice that has water added (diluted fruit juice). Eat bland, jkha-jc-wbrlhe foods in small amounts as you are able. These foods include bananas, applesauce, rice, lean meats, toast, and crackers. Avoid fluids that contain a lot of sugar or caffeine, such as energy drinks, sports drinks, and soda. Avoid alcohol. Avoid spicy or fatty foods. General instructions Take agas-uax-vmoyjhr and prescription medicines only as told by your health care provider. Drink enough fluid to keep your urine pale yellow. Wash your hands often using soap and water. If soap and water are not available, use hand mathematician research. Make sure that all people in your household wash their hands well and often. Rest at home while you recover. Watch your condition for any changes. Breathe slowly and deeply when you feel nauseated. Keep all follow-up visits as told by your health care provider. This is important. Contact a health care provider if: Your symptoms get worse. You have new symptoms. You have a fever. You cannot drink fluids without vomiting. Your nausea does not go away after 2 days. You feel light-headed or dizzy. You have a headache. You have muscle cramps. You have a rash. You have pain while urinating. Get help right away if: You have pain in your chest, neck, arm, or jaw. You feel extremely weak or you faint. You have persistent vomiting. You have vomit that is bright red or looks like black coffee grounds. You have bloody or black stools or stools that look like tar. You have a severe headache, a stiff neck, or both. You have severe pain, cramping, or bloating in your abdomen. You have difficulty breathing, or you are breathing very quickly. Your heart is beating very quickly. Your skin feels cold and clammy. You feel confused. You have signs of dehydration, such as: ? Dark urine, very little urine, or no urine. ? Cracked lips. ? Dry mouth. ? Sunken eyes. ? Sleepiness. ? Weakness. These symptoms may represent a serious problem that is an emergency. Do not wait to see if the symptoms will go away. Get medical help right away. Call your local emergency services (911 in the [place] Do not drive yourself to the hospital. Summary Nausea is the feeling that you have an upset stomach or that you are about to vomit. As nausea getsworse, it can lead to vomiting. Vomiting can make you feel weak and cause you to become dehydrated. Follow instructions from your health care provider about eating and drinking to prevent dehydration. Take diqm-eho-krtnnvy and prescription medicines only as told by your health care provider. Contact your health care provider if your symptoms get worse, or you have new symptoms. Keep all follow-up visits as told by your health care provider. This is important. This information is not intended to replace advice given to you by your health care provider. Make sure you discuss any questions you have with your health care provider. Document Released: 06/11/2006 Document Revised: 10/03/2019 Document Reviewed: 11/19/2018 [employer] Patient Education 2020 [employer] Moderate Conscious Sedation, Adult, Care After These instructions provide you with information about caring for yourself after your procedure. Your health care provider may also give you more specific instructions. Your treatment has been plannedaccording to current medical practices, but problems sometimes occur. Call your health care provider if you have any problems or questions after your procedure. What can I expect after the procedure? After your procedure, it is common: To feel sleepy for several hours. To feel clumsy and have poor balance for several hours. To have poor judgment for several hours. To vomit if you eat too soon. Follow these instructions at home: For at least 24 hours after the procedure: Do not: ? Participate in activities where you could fall or become injured. ? Drive. ? Use heavy machinery. ? Drink alcohol. ? Take sleeping pills or medicines that cause drowsiness. ? Make important decisions or sign legal documents. ? Take care of children on your own. Rest. Eating and drinking Follow the diet recommended by your health care provider. If you vomit: ? Drink water, juice, or soup when you can drink without vomiting. ? Make sure you have little or no nausea before eating solid foods. General instructions Have a responsible adult stay with you until you are awake and alert. Take veda-hal-qklevdr and prescription medicines only as told by your health care provider. If you smoke, do not smoke without supervision. Keep all follow-up visits as told by your health care provider. This is important. Contact a health care provider if: You keep feeling nauseous or you keep vomiting. You feel light-headed. You develop a rash. You have a fever. Get help right away if: You have trouble breathing. This information is not intended to replace advice given to you by your health care provider. Make sure you discuss any questions you have with your health care provider. Document Released: 04/01/2014 Document Revised: 05/24/2018 Document Reviewed: 09/30/2016 [employer] Patient Education 2020 [place]. Colonoscopy, Adult, Care After This sheet gives you information about how to care for yourself after your procedure. Your health care provider may also give you more specific instructions. If you have problems or questions, contact your health care provider. What can I expect after the procedure? After the procedure, it is common to have: A small amount of blood in your stool for 24 hours after the procedure. Some gas. Mild abdominal cramping or bloating. Follow these instructions at home: General instructions For the first 24 hours after the procedure: ? Do not drive or use machinery. ? Do not sign important documents. ? Do not drink alcohol. ? Do your regular daily activities at a slower pace than normal. ? Eat soft, hmdn-ew-cxiner foods. Take wrzs-tyl-btihlfz or prescription medicines only as told by your health care provider. Relieving cramping and bloating Try walking around when you have cramps or feel bloated. Apply heat to your abdomen as told by your health care provider. Use a heat source that your healthcare provider recommends, such as a moist heat pack or a heating pad. ? Place a towel between your skin and the heat source. ? Leave the heat on for 20 30 minutes. ? Remove the heat if your skin turns bright red. This is especially important if you are unable to feel pain, heat, or cold. You may have a greater risk of getting burned. Eating and drinking Drink enough fluid to keep your urine pale yellow. Resume your normal diet as instructed by your health care provider. Avoid heavy or fried foods thatare hard to digest. Avoid drinking alcohol for as long as instructed by your health care provider. Contact a health care provider if: You have blood in your stool 2 3 days after the procedure. Get help right away if: You have more than a small spotting of blood in your stool. You pass large blood clots in your stool. Your abdomen is swollen. You have nausea or vomiting. You have a fever. You have increasing abdominal pain that is not relieved with medicine. Summary After the procedure, it is common to have a small amount of blood in your stool. You may also have mild abdominal cramping and bloating. For the first 24 hours after the procedure, do not drive or use machinery, sign important documents, or drink alcohol. Contact your health care provider if you have a lot of blood in your stool, nausea or vomiting, a fever, or increased abdominal pain. This information is not intended to replace advice given to you by your health care provider. Make sure you discuss any questions you have with your health care provider. Document Released: 01/23/2005 Document Revised: 04/03/2018 Document Reviewed: 08/22/2016 [employer] Patient Education 2020 [employer] Additional Information VACCINATE! IT SAVES LIVES! Members of the community who have not yet received the COVID-19 vaccine and would like to receive it can visit one of [facility] vaccine clinics. There are many vaccine clinic locations within the [facility]. For locations and available times, please visit [email or web address] It is important to note that some COVID mobile vaccine clinics are held outdoors and may be canceled in rainy or stormy conditions. To learn more about pediatric vaccinations (ages 5-11), we invite you to visit the [facility] webpage. [email or web address].[email or web address].org/pages/[email or web address]-Esaag-Xmijlbqrkap-Uurxgtycem-[email or web address]-[email or web address] stions.htmlTo learn more about the COVID-19 vaccine, we invite you to visit the CDC website for a list of frequently asked questions.https://www.cdc.gov/coronavirus/2019-ncov/vaccines/faq.html [facility] Patient Portal Access Instructions: Stay connected with your healthcare team and access your personal medical information anytime with the [employer] Patient Portal. Please follow the directions below to create your [employer] account: 1.Access the email account you provided upon registration to the hospital/physician office.2.Look for an invitation email from [facility].3.Open the email and access the invitation link: AcceptInvitation to [facility].4.Fill in the required dang to create your account. To access your account, visit IM[employer] Click the blue button labeled Access Patient Portal and then log in with the username and password that you created in the steps above. You will be able to view your test results, lab results, a summary of your visits, upcoming appointments and more. There is also a convenient messaging option where you can send secure messages to your [employer]. In addition, you will have the ability to download any documents or summaries to your computer and/or send the information securely to a physician. Remember that your healthcare information is confidential, so carefully consider who you will allowto register on the [facility] Patient Portal for access to your information. You can also access the [facility] Patient Portal on the [employer] rob. Simply click on Patient Portal and then log into your account. If you would like to receive a full copy of your medical records, please contact the [facility] Medical Records Department by calling [phone], Sunday through Sunday between 8 a.m. and 4:30 p.m. HOW TO SAFELY DISPOSE OF PRESCRIPTION MEDICATIONS Please use one of the following methods to safely dispose of your unused medications. 1.Use a drug disposal kit: the drug disposal pouch allows you to safely discard your old and unuseddrugs. Ask your nurse to give you one when you are discharged.2.Visit a local take-back location: Many local pharmacies and police departments have programs that collect old and unwanted prescriptiondrugs. Call your local pharmacy or go to http://[employer] World.HelpAround/0A4Es6u to find one close to you.3.Make use of household items: Use cat litter or old coffee grounds to dispose medications if other options arenot available. Mix your drugs with these household products, seal them in an airtight container andthrow it into the garbage. Call [facility]: [phone] to be sure your drugs can be disposed of in this way. Some medicines may require a different approach.4.Never flush your medications down the toilet. IF YOU HAVE BEEN PRESCRIBED AN OPIOID FOR PAIN If you have been prescribed an opioid (such as hydrocodone, oxycodone or morphine), it is critical to understand the possible side effects and risks of opioid pain medications. Even when taken as directed, opioids can have several side effects including: Tolerance, meaning you might need to take more of a medication for the same pain relief. Nausea, vomiting and/or constipation. Sleepiness, dizziness, dry mouth, confusion, depression or itching. Physical dependence, meaning you have withdrawal symptoms when a medication is stopped, can develop within a few days. KNOW YOUR RESPONSIBILITIES It is important to know exactly how much and how often to take the opioid pain medications you are prescribed. Never take opioids in higher amounts or more often than prescribed. Do not combine opioids with alcohol or other drugs that cause drowsiness, such as benzodiazepines, also known as benzos, including diazepam and alprazolam, muscle relaxants or sleep aids. Never sell or share prescription opioids. This is illegal. Store opioids in a secure place and out of reach of others (including children, family, friends and visitors). The last page of this document has been signed and retained as a CHART COPY. Signatures Patient Education Materials Nausea and Vomiting, Adult Moderate Conscious Sedation, Adult, Care After Colonoscopy, Adult, Care After Medication Leaflets My discharge plan and instructions have been reviewed and explained to me and I,IRIS JIMENEZ M understand my current condition and have read and understand these discharge instructions. I have received a written copy of the plan/instructions. If I have questions, I am aware that I should contact my doctor. 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 Mental status: at preoperative baseline, alert & oriented x 4. Respiratory function: lungs are clear to auscultation. Respiratory support: none. CV function: Normal rate. Cardiovascular support: none. Pain. Nausea status: denies nausea. Postoperative hydration status: within normal limits. Digitally Signed by BRIAN MILLAN on 12/29/2022 08:59 AM [facility]07-07-2023 Note DANA ADMISSION HISTORY AND PHYSICIAL CHIEF COMPLAINT: HISTORY OF PRESENT ILLNESS: REVIEW OF SYSTEMS: ACTIVE PROBLEMS: (3) COPD (chronic obstructive pulmonary disease) (29832273) HTN (hypertension) (3086413062) Pulmonary embolism (02074672) MEDICATIONS: Active Inpt Meds: None Active PRN Meds: None One Time Meds: (Completed) albuterol (albuterol 2.5 mg/3 mL (0.083%) inhalation solution) Start: 12/29/22 8:00:00 EDT, Dose = 2.5 mg, = 3 mL, Inhalation, Once, Stop: 12/29/22 8:00:00 EDT, ,, 12/29/22 7:54:00 EDT Active IV Meds: Lactated Ringers Infusion 1,000 mL (LR 1,000 mL) Start: 12/29/22 7:10:00 EDT, Rate: 50 mL/hr, 12/29/22 7:10:00 EDT ALLERGIES: (1) No Known Medication Allergies FAMILY HISTORY: SOCIAL HISTORY: PHYSICAL EXAM: VITALS: ExidnbBrkrOHHjwouMRVlN5ZAP5EigyJu(kg) 12/29 07:1536.3--814643--01/07 65.9 24 Hr Tmax: 36.3 at 12/29 07:15 36 Hr Tmax: 36.3 at 12/29 07:15 Vital Signs are the last 5 in the past 48 hours. Weights display the last 5 within 7 days. Initial Wt: 12/29 65.9 kg 145 lb Current Wt: 12/29 65.9 kg 145 lb GENERAL: HEENT: CARDIOVASCULAR: RESPIRATORY: ABDOMEN: EXREMETIES: NEUROLOGICAL: PSYCHIATRIC: LABS: No 36hr Lab Data DIAGNOSTICS: IMPRESSION: PLAN: History and Physical Update I have examined the patient; reviewed the H&P and there are no changes to the H&P unless noted below. Digitally Signed by MENDEL ARGUELLO MD on 12/29/2022 08:26 AM [facility]07-07-2023 Anesthesiology Consult note Patient: IRIS JIMENEZ Age: 82 years Sex: Female : 1940 Associated Diagnoses: None Author: BRIAN MILLAN Preoperative Information Time of last food or liquid consumption: 12/29/2022 05:30:00 Anesthesia history Patient's history: negative. Family's history: negative. Health Status Allergies: Allergic Reactions (Selected) No Known Medication Allergies, Allergies (1) ActiveReaction No Known Medication AllergiesNone Documented Current medications: (Selected) Inpatient Medications Ordered LR 1,000 mL: 50 mL/hr, Intravenous Documented Medications Documented Eliquis 5 mg oral tablet: TAKE 1 TABLET BY MOUTH TWICE DAILY Metoprolol Tartrate 50 mg oral tablet: TAKE 1/2 (ONE-HALF) TABLET BY MOUTH TWICE DAILY FOR 90 DAYS atorvastatin 40 mg oral tablet: TAKE 1 TABLET BY MOUTH ONCE DAILY FOR 90 DAYS cephalexin 500 mg oral capsule: TAKE 1 CAPSULE BY MOUTH THREE TIMES DAILY escitalopram 10 mg oral tablet: TAKE 1 TABLET BY MOUTH ONCE DAILY FOR 90 DAYS, Medications (1) Active Scheduled: (0) Continuous: (1) Lactated Ringers Infusion 1,000 mL 1,000 mL, Intravenous, 50 mL/hr PRN: (0) Problem list: Active Problems (3) COPD (chronic obstructive pulmonary disease) HTN (hypertension) Pulmonary embolism Histories Past Medical History: No active or resolved past medical history items have been selected or recorded., Recent PE on eliquis, COPD hypoxia, home O2, lung cancer with resection, HTN Family History: Colon cancer Mother Procedure history: Lobectomy of lung ([id number]). Comments: 12/29/2022 7:19 EDT - Eris Garcia RN RIGHT PARTIAL Colonoscopy ([id number]). Social History Social & Psychosocial Habits Alcohol 12/29/2022 Use: Never Substance Abuse 12/29/2022 Use: Never Tobacco 12/29/2022 Tobacco Use: Former smoker, quit more Home/Environment 12/29/2022 Domestic Concerns None Living situation: Home/Independent Nutrition/Health 12/29/2022 Type of diet: Regular Appetite Fair Eating Difficulties None . Physical Examination Vital Signs 12/29/2022 7:15 EDT Temperature Temporal Artery 36.3 DegC Peripheral Pulse Rate 57 bpm LOW Respiratory Rate 18 br/min Systolic Blood Pressure Non-Invasive 156 mmHg HI Diastolic Blood Pressure Non-Invasive 62 mmHg Blood Pressure Method Automatic Blood Pressure Location Left arm Vital Signs(last 24 hrs) Last Charted Resp Rate 18 br/min (DEC 29 07:15) SBPH 156mmHg (DEC 29 07:15) DBP62 mmHg (DEC 29 07:15) BMI28.37 (DEC 29 07:15) Measurements from flowsheet : Measurements 12/29/2022 7:15 EDT Height 152.4 cm Admission Weight 65.9 kg Weight Method Stated Gail Body Weight 45.50 kg BSA Admission 1.63 Body Mass Index 28.37 kg/m2 Pain assessment: Pain Assessment 12/29/2022 7:15 EDT Primary Pain Intensity 0 Pain Scale Type 0-10 Pain scale . General: Alert and oriented. Airway: Normal temporomandibular joint mobility. Head: Normocephalic. Dentition Evaluation: Missing teeth, Chipped teeth, Dentures, upper. Neck: Supple. Respiratory: wheezy- SaO2 90%. Cardiovascular: Normal rate. Heart Sounds: Normal. Gastrointestinal: Soft. Musculoskeletal Normal range of motion. Integumentary: Intact. Neurologic: Alert, tremor. Review / Management Results review: No qualifying data available , Lab results 12/29/2022 7:32 EDT SN - CAt - Case Attendee SN - CAt - Case Attendee SN - CAt - Case Attendee SN - CAt - Case Attendee SN - CAt - Case Attendee SN - CAt - Case Attendee SN - CAt - Case Attendee SN - CAt - Case Attendee SN - CAt - Role Performed Primary Surgeon SN - CAt - Role Performed Marine Equipment Sales Engineer 1 SN - CAt - Role Performed LOG GRADER SN - CAt - Role Performed Rn Clinician 12/29/2022 7:29 EDT Lactated Ringers Injection Begin Bag 1,000 mL mL 12/29/2022 7:28 EDT Wrist Right 12/29/2022 22 gauge Peripheral IV Activity: Insert new site Peripheral IV Dressing Condition: Clean, Dry, Intact Peripheral IV Dressing Activity: Applied Peripheral IV Line Status/Patency: Flushes easily Peripheral IV Site Condition: No complications Peripheral IV Equipment: Extension set Peripheral IV Number of Attempts: 1 12/29/2022 7:23 EDT GI Prep Suprep GI Prep Completed Yes GI Prep Results Liquid, Clear 12/29/2022 7:21 EDT Allergies Yes Consent Form Signed Yes Patient Dressed In Hospital gown History & Physical On Chart Yes Belongings At Bedside Pants, Purse, Shirt, Shoes NPO Status Maintained Patient ID Band on and Verified Yes Implants Verified Yes Pacemaker/AICD Verified Yes Last Fluid Intake 12/29/2022 5:30 Last Food Intake 12/28/2022 9:00 Last Void 12/29/2022 6:30 12/29/2022 7:15 EDT Designated Person #1 We May Share JOHN GILLESPIE [phone] Designated Person #1 Relationship Significant other Height 152.4 cm Admission Weight 65.9 kg Weight Method Stated Gail Body Weight 45.50 kg BSA Admission 1.63 Body Mass Index 28.37 kg/m2 Temperature Temporal Artery 36.3 DegC Peripheral Pulse Rate 57 bpm LOW Respiratory Rate 18 br/min Systolic Blood Pressure Non-Invasive 156 mmHg HI Diastolic Blood Pressure Non-Invasive 62 mmHg Blood Pressure Method Automatic Blood Pressure Location Left arm Primary Pain Intensity 0 Pain Scale Type 0-10 Pain scale Respirations Unlabored Respiratory Pattern Regular Breath Sounds Auscultated Posterior only All Lobes Breath Sounds Inspiratory wheeze Oxygen Saturation 91 % LOW Abdomen Description Non-distended, Symmetric Abdomen Palpation Non-Tender Bowel Sounds All Quadrants Present Urinary Elimination Voiding, no difficulties Status N/A Skin Temperature Warm Skin Description Normal for ethnicity Skin Integrity Intact Characteristics of Speech Clear Level of Consciousness Alert Strength All Extremities Moderate Tone All Extremities Normal Sensation All Extremities Intact Affect/Behavior Appropriate, Calm, Cooperative Orientation Oriented x 4 Sensory Deficits None Infectious Disease Symptoms Patient states no symptoms Infectious Disease Recent Exposure No Alcohol and Drug Use No Employee of Institutional Living No Health Care Employee No History of Exposure to TB No History of Positive Chest X-Ray for TB No History of Positive TB Skin Test No Homeless No Known Immunosuppression No Recent Immigrant No Resident of Institutional Living No Bloody Sputum No Fatigue No Fever No Loss of Appetite No Night Sweats No Persistent Cough > 3 Weeks No Weight Loss No Barriers to Learning None evident Teaching Method Explanation Preferred Written Language Turkish Preferred Spoken Language Turkish Information Given by Patient Patient's Current Physicians kerline Discharge To, Anticipated Home independently Activity Status ADL Awake, Resting Standard Safety ID band on, Call device within reach, Bed in low position, Wheels locked, Upper/Half-Length side-rails up, Phone within reach, personal items within reach, Visitor at bedside, Safety level maintained Prev Test Positive/Diagnosis w/COVID-19 No Current Quarantine/Isolated any Illness No Any Contact with Sick Animals/Birds No Traveled Anywhere in Last 30 Days No N/A Personal Devices, Patient Valuables None Admission Note-Nursing Procedure/Therapy Intake . Assessment and Plan [place] [employer] Anesthesiologists (ASA) physical status classification: Class IV. Anesthetic Preoperative Plan Premedication: inhalational. Anesthetic technique: MAC. Induction: intravenously. Postoperative pain management: Per surgeon. Risks discussed: nausea, vomiting, headache, sore throat, dental injury, hypotension, allergic reaction, serious complications. Informed consent: signed by patient. Digitally Signed by BRIAN MILLAN on 12/29/2022 07:53 AM [facility]03-23-2023 NoteHNO ID: [id number] Author: Leandro Gibbs, DO Service: ? Author Type: Physician Type: Progress Notes Filed: 09/14/2022 5:08 PM Note Text: [facility] CARDIOLOGY [facility] OUTPATIENT VISIT DATE September 14, 2022 PRIMARY CARE PHYSICIAN: Nichole Churchill MD [id number] [address] HISTORY OF PRESENT ILLNESS: Ms. Jimenez is a 82 year old female. The patient returns for follow-up second history of coronary artery disease with additional history of mitral valve regurgitation, hypertension, hyperlipidemia and long-term oral anticoagulation with Eliquis due to history of pulmonary embolus. She denies chest comfort, dyspnea, with apnea, paroxysmal nocturnal dyspnea, palpitations, near-syncope or syncope. She denies GI/ bleeding or melena. PLAN AND RECOMMENDATIONS: The patient appears stable without symptoms of suggest angina or cardiac decompensation. Heart rate, blood pressure and recent cholesterol profile are favorable. We have therefore made no additions or changes. She did ask questions in regards to other potentially less costly options to Eliquis for which we have asked her to further discuss with yourself. Dietary and lifestyle modification was reemphasized to facilitate risk factor reduction. We will look forward to reevaluating her in 6 months time. Vitals: BP 132/60 Pulse (!) 49 Ht 154.9 cm (5' 1 ) Wt 67.6 kg (149 lb) SpO2 93% BMI 28.15 kg/m? Physical Exam Vitals reviewed. Constitutional: Appearance: She is well-developed. HENT: Head: Normocephalic and atraumatic. Eyes: Pupils: Pupils are equal, round, and reactive to light. Neck: Thyroid: No thyromegaly. Vascular: No JVD. Cardiovascular: Rate and Rhythm: Normal rate and regular rhythm. Heart sounds: Normal heart sounds. No murmur heard. No friction rub. No gallop. Pulmonary: Effort: Pulmonary effort is normal. No respiratory distress. Breath sounds: Normal breath sounds. No wheezing or rales. Abdominal: General: Bowel sounds are normal. Palpations: Abdomen is soft. Musculoskeletal: General: Normal range of motion. Cervical back: Normal range of motion and neck supple. Skin: General: Skin is warm and dry. Coloration: Skin is not pale. Neurological: Mental Status: She is alert and oriented to person, place, and time. Cranial Nerves: No cranial nerve deficit. Psychiatric: Behavior: Behavior normal. Thought Content: Thought content normal. Judgment: Judgment normal. Review of Systems Constitutional: Negative for activity change and fatigue. HENT: Negative for ear pain and facial swelling. Eyes: Negative for pain and discharge. Respiratory: Positive for shortness of breath. Negative for chest tightness. Cardiovascular: Negative for chest pain, palpitations and leg swelling. Gastrointestinal: Negative for abdominal pain, blood in stool, nausea and vomiting. Endocrine: Negative for cold intolerance and heat intolerance. Genitourinary: Negative for frequency and hematuria. Musculoskeletal: Negative for arthralgias and gait problem. Skin: Negative for color change, pallor and rash. Allergic/Immunologic: Negative for immunocompromised state. Neurological: Negative for dizziness, syncope, light-headedness and headaches. Hematological: Negative for adenopathy. Does not bruise/bleed easily. Psychiatric/Behavioral: Negative for confusion. The patient is not nervous/anxious. 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 PAST SURGICAL HISTORY Procedure Laterality Date COLONOSCOPY FLX DX W/COLLJ SPEC WHEN PFRMD 10/31/05 Colonoscopy [facility] COLONOSCOPY FLX DX W/COLLJ SPEC WHEN PFRMD 10/09/11 repeat 5 years LUNG SURGERY HX Right 2015 removal 2/3 lung METABOLIC EXERCISE STRESS TEST 07/10/01 stress echo PULMONARY FUNCTION TEST 05/13/02 Social History Tobacco Use Smoking status: Former Types: Cigarettes Quit date: 04/16/2006 Years since quittin.4 Smokeless tobacco: Never Substance Use Topics Alcohol use: Not Currently Comment: rarely Drug use: No FAMILY HISTORY Problem Relation Age of Onset Colon Cancer Mother other (ashd [Other]) Father ALLERGIES Allergen Reactions Azithromycin Rash Bees Mosquitos CURRENT MEDICATIONS: ELIQUIS 5 mg tab(s) Take 5 mg by mouth twice daily. citalopram (CELEXA) 20 mg tablet Take 10 mg by mouth once daily. lisinopril (ZESTRIL, PRINIVIL) 5 mg tablet Take 1 tablet by mouth once daily. nitrogly (more content not included)...[facility]09-22-2022 Instructions* Patient Instructions* Aye Beltran APRN.[facility] - 03/16/2022 2:22 PM EDT You are due for a cholesterol panel - please check with Dr. Churchill at your follow up Goal LDL is less than 70 based on your past history Continue your same doses of lisinopril and Metoprolol Blood pressure is little bit high today - you report good BP readings at home. Please call if you have increased blood pressure readings on the top number over 150 for 3 consecutive days. We can recheck an echo when you are back to see Dr. Gibbs. documented in this encounterPremier Health [facility]09-22-2022 History of Present illness Narrative* Aye Beltran APRN.CNP - 03/16/2022 2:00 PM EDT Images from the original note were not included. [facility] [place] SECTION OF REGIONAL CARDIOLOGY OUTPATIENT VISIT DATE March 16, 2022 OUTPATIENT VISIT TYPE ESTABLISHED PRIMARY CARE PHYSICIAN: Nichole Churchill MD [address] [place] [address] CHIEF COMPLAINT: Arrhythmia , Coronary artery disease, Hyperlipidemia, Hypertension, and Murmur HISTORY OF PRESENT ILLNESS: Ms. Jimenez is a 81 year old female with a PMH of CAD, HTN, HLD, LBBB, colon Ca and lung Ca who presents today for 6 month follow up visit. The last OV with Dr. Gibbs was 09/13/2021. She has had 0 hospitalizations or ER visits since last OV. She reports baseline SOB - this is not new for her. She isable to exercise 3-4 times per week without limitations. She is checking BP at home with readings in the 120's, from memory. She denies LE edema or abdominal bloating. She reports chronic chest pain that is not new. She does not ever get any chest pain on exertion. She is compliant with medications at home. PLAN AND RECOMMENDATIONS: 1.CAD - dx 2001 - triple vessel CAD recommended for medical management - on BB, ASA and statin - was on on long acting nitrates in the past - this has been discontinued - echo 06/2021 showed preserved EF 55% - appears compensated from cardiac standpoint. 2. HTN - Blood pressure is high in the office today - Reported good home control on Lopressor and Linsiopril - no medication changes today - check BP at home and call the office with systolic readings > 150 mmHg for 3 consecutive days. 3. HLD - LDL 2019 = 93 - not at goal - check fasting labs with PCP - goal LDL less than 70 - may need to add Zetia for better LDL control 4.LBBB - chronic 5. SOB - chronic and unchanged from basline - recent echo shows EF 55%, NO LAE, MV calcification with 1-2 + MVR 6.Mitral valve insufficiency - recent echo 06/29/2021 shows EF 55%, MV calcification with 1-2 + MVR I spent a total of 35 minutes on the date of the service which included preparing to see the patient, [id number] patient care, completing clinical documentation, performing a medically appropriate examination, counseling and educating the patient/family/caregiver, ordering medications, tests, or p rocedures, and communicating results to the patient/family/caregiver. Aye Beltran, DAHIANA.[facility] Cardiology Nurse Practitioner Section of Regional Cardiology [facility] Dept of Cardiovascular Medicine [facility] Heart [facility] V[facility] [place] [address] [place] [address] Office Office REVIEW OF SYSTEMS: CARD: See HPI GENERAL: Negative for: Weight loss or gain, Fever and/or Chills HEENT: Negative for: Headache, Impaired Vision, Glasses, Hearing Impairment, Ringing in Ears, Nosebleeds, Bleeding Gums NECK: Negative for: Swelling, Pain, Stiffness RESPIRATORY: Negative for: Cough, Blood in Sputum, + Shortness of breath, Wheezing, Apnea GASTROINTESTINAL: Negative for: Nausea, Vomiting, Diarrhea, Blood in stool, or Dark black stools MUSCULOSKELETAL: Negative for: Muscle or joint pain, Stiffness , Joint swelling NEUROLOGIC: Negative for: focal numbness/weakness, headaches, visual changes, ataxia, speech/language loss SKIN: Negative for: Rashes, Itching HEMATOLOGICAL/LYMPHATIC: Negative for: Easy bruising , Easy bleeding ENDOCRINE: Negative for: Heat or cold intolerance, Excessive sweating, Frequent urination, Frequentthirst PHYSICAL EXAMINATION: BP 152/70 Pulse (!) 54 Ht 154.9 cm (5' 1 ) Wt 68.9 kg (151 lb 14.4 oz) SpO2 94% BMI 28.70kg/m HEENT: normocephalic, EOMI Heart: regular rhythm , +systolic murmur Lungs: clear to auscultation , decreased breath sounds through out Abdomen: bowel sounds present , nontender, nondistended Extremities: no edema , nonpitting edema present L>R Musculoskeletal: chest wall nontender , no cyanosis or clubbing, normal gait Neurological: alert and oriented , cranial nerves II-XII grossly intact Psychiatric: appropriate and cooperative Skin: no rash, cellulitis or lesions appreciated CARDIOVASCULAR MEDICINE TESTING: I have personally reviewed ECG, laboratory results, and echocardiogram report Last ECHO Result Conclusion ECHO Collected: 06/29/2021 1:54 PM (Final result) Impression: CONCLUSIONS: - Technically difficult exam due to body habitus. - Exam indication: Shortness of Breath - The left ventricle is normal in size. Left ventricular systolic function is normal. EF = 55 5% (visual est.) Grade I left ventricular diastolic dysfunction. - The right ventricle is normal in size. Right ventricular systolic function is normal. Intervenricular septal flattening seen. Possible RV pressure overload. - AV sclerosis. - Moderate degenerative changes of MV with mild (1-2+) MR. - Exam was compared with the prior echocardiographic exam performed on 03/06/2018, no significant change. * * * Final * * * Last EKG Result Conclusion ECG COMPLETE Collected: 06/14/2021 11:10 AM (Final result) Impression: SINUS BRADYCARDIA LEFT AXIS DEVIATION COMPLETE LEFT BUNDLE BRANCH BLOCK ABNORMAL ECG Confirmed by MD GIBBS GREGORY () on 06/15/2021 10:10:30 AM 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 PAST SURGICAL HISTORY Procedure Laterality Date COLONOSCOPY FLX DX W/COLLJ SPEC WHEN PFRMD 10/31/05 Colonoscopy [facility] COLONOSCOPY FLX DX W/COLLJ SPEC WHEN PFRMD 10/09/11 repeat 5 years LUNG SURGERY HX Right 2015 removal 2/3 lung METABOLIC EXERCISE STRESS TEST 07/10/01 stress echo PULMONARY FUNCTION TEST 05/13/02 Social History Tobacco Use Smoking status: Former Types: Cigarettes Quit date: 04/16/2006 Years since quittin.9 Smokeless tobacco: Never Substance Use Topics Alcohol use: Not Currently Comment: rarely Drug use: No FAMILY HISTORY Problem Relation Age of Onset Colon Cancer Mother other (ashd [Other]) Father ALLERGIES Allergen Reactions Azithromycin Rash Bees Mosquitos CURRENT MEDICATIONS: albuterol HFA (PROAIR HFA) 90 mcg/actuation inhaler^Inhale 2 Puffs as instructed every 6 hours as needed.^Disp: 1 Inhaler^Rfl: 0 icosapent ethyl (VASCEPA ORAL)^Take 0.5 capsules by mouth twice daily. Pt taking 2 capsules per day- states Dr wants her to take 4 per daily, but she only takes 2^Disp: ^Rfl: citalopram (CELEXA) 20 mg tablet^Take 10 mg by mouth once daily.^Disp: ^Rfl: lisinopril (ZESTRIL, PRINIVIL) 5 mg tablet^Take 1 tablet by mouth once daily.^Disp: 30 tablet^Rfl: 11 nitroglycerin sublingual (NITROSTAT) 0.4 mg SL tablet^Dissolve 1 tablet under the tongue every 5 minutes as needed.^Disp: 25 tablet^Rfl: 11 metoprolol tartrate, short acting, (LOPRESSOR) 50 mg tablet^Take 0.5 tablets by mouth twice daily.^Disp: 30 tablet^Rfl: 11 atorvastatin (LIPITOR) 80 mg tablet^Take 80 mg by mouth once daily.^Disp: ^Rfl: ASPIRIN 81 MG TAB^Take 2 tablets daily^Disp: ^Rfl: 0 documented in this encounterPremier [facility]05-04-2022 Miscellaneous Notes* Telephone Encounter - Catherine Nixon LPN - 10/26/2021 10:21 AM EDT Unable to reach patient at the number in her chart-left a message for her son who is listed as her contact with her negative results.Catherine Nixon LPN * Telephone Encounter - Catherine Nixon LPN - 10/26/2021 10:20 AM EDT ----- Message from Ike Marie MD sent at 10/26/2021 8:02 AM EDT ----- Negative for COVID and influenza. documented in this encounterPremier Health [facility]05-03-2022 History of Present illness Narrative* Kendra Gupta PA-C - 10/25/2021 4:15 PM EDT This note was created using Trendient. Subjective Iris Jimenez is a 81 year old female. HPI Patient presents with cough and nasal congestion over the past 3 weeks. She states that started offwith body aches and headache and probable fever the first couple of days. That had passed and now she has had copious postnasal drip, rhinorrhea and cough. She states she thinks the postnasal drip ismaking her cough as well. No chest pain or shortness of breath. She does have a history of smoking,she quit in 2005. History of chronic pulmonary obstruction. Denies leg pain or swelling. She statesshe cannot smell very well but she thinks maybe it is from all the congestion in her nose. She has not had COVID previously. She has lung cancer as a diagnosis on her chart but she denies this. Review of Systems Constitutional: Positive for chills, fatigue and fever. HENT: Positive for congestion, postnasal drip, rhinorrhea and sinus pressure. Negative for ear pain. Respiratory: Positive for cough and wheezing. Negative for chest tightness and shortness of breath. Cardiovascular: Negative. Gastrointestinal: Negative. Genitourinary: Negative. Musculoskeletal: Negative. All other systems reviewed and are negative. 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 10 tablet 0 doxycycline (VIBRA-TABS) 100 mg tablet Take 1 tablet by mouth twice daily for 7 days. 14 tablet 0 albuterol HFA (PROAIR HFA) 90 mcg/actuation inhaler Inhale 2 Puffs as instructed every 6 hours as needed. 1 Inhaler 0 guaiFENesin (MUCINEX) 600 mg 12 hr tablet Take 2 tablets by mouth twice daily for 7 days. 28 tablet0 icosapent ethyl (VASCEPA ORAL) Take 0.5 capsules by mouth twice daily. Pt taking 2 capsules per day- states Dr wants her to take 4 per daily, but she only takes 2 citalopram (CELEXA) 20 mg tablet Take 10 mg by mouth once daily. lisinopril (ZESTRIL, PRINIVIL) 5 mg tablet Take 1 tablet by mouth once daily. 30 tablet 11 nitroglycerin sublingual (NITROSTAT) 0.4 mg SL tablet Dissolve 1 tablet under the tongue every 5 minutes as needed. 25 tablet 11 metoprolol tartrate, short acting, (LOPRESSOR) 50 mg tablet Take 0.5 tablets by mouth twice daily. 30 tablet 11 atorvastatin (LIPITOR) 80 mg tablet Take 80 mg by mouth once daily. ASPIRIN 81 MG TAB Take 2 tablets daily 0 Current Facility-Administered Medications Medication Dose Route Frequency Provider Last Rate Last Admin perflutren lipid microspheres 1.3 mL in NaCl (PF) 0.9% 10 mL injection (DEFINITY) INTRAVENOUS DIRECTED PRN Leandro Gibbs, sodium chloride 0.9 % (flush) 10 mL (BD POSIFLUSH) 10 mL INTRAVENOUS DIRECTED PRN Leandro Gibbs DO PAST SURGICAL HISTORY Procedure Laterality Date COLONOSCOPY FLX DX W/COLLJ SPEC WHEN PFRMD 10/31/05 Colonoscopy [facility] COLONOSCOPY FLX DX W/COLLJ SPEC WHEN PFRMD 10/09/11 repeat 5 years LUNG SURGERY HX Right 2015 removal 2/3 lung METABOLIC EXERCISE STRESS TEST 07/10/01 stress echo PULMONARY FUNCTION TEST 05/13/02 FAMILY HISTORY Problem Relation Age of Onset Colon Cancer Mother other (ashd [Other]) Father Social History Tobacco Use Smoking status: Former Smoker Quit date: 04/16/2006 Years since quittin.5 Smokeless tobacco: Never Used Substance Use Topics Alcohol use: Not Currently Comment: rarely Drug use: No Objective BP 124/62 Pulse (!) 55 Temp 36.2 C (97.2 F) Resp 24 Wt 68.6 kg (151 lb 3.2 oz) SpO2 94% BMI 28.57 kg/m Physical Exam Vitals reviewed. Constitutional: General: She is not in acute distress. Appearance: Normal appearance. She is not ill-appearing. HENT: Head: Normocephalic and atraumatic. Right Ear: Tympanic membrane, ear canal and external ear normal. Left Ear: Tympanic membrane, ear canal and external ear normal. Nose: Congestion present. Right Sinus: Maxillary sinus tenderness present. Left Sinus: Maxillary sinus tenderness present. Mouth/Throat: Mouth: Mucous membranes are moist. Pharynx: Oropharynx is clear. Cardiovascular: Rate and Rhythm: Normal rate and regular rhythm. Heart sounds: Normal heart sounds. Pulmonary: Effort: Pulmonary effort is normal. Comments: Mild expiratory wheeze. patient conversational in no distress. Musculoskeletal: Cervical back: Neck supple. Skin: General: Skin is warm and dry. Neurological: Mental Status: She is alert. Assessment and Plan ASSESSMENT/PLAN: 1. Sinobronchitis - ICD9: 473.9, 490, ICD10: J32.9, J40 - Will begin treatment with Doxycycline - Supportive care with plenty of fluids, rest, and analgesia prn. - Follow up in 3-5 days if symptoms persist or worsen. -Chest x-ray here shows no pneumonia. Other chronic findings present. I feel she does have sinusitis and probable bronchitis. We will treat with doxycycline, prednisone, Mucinex and albuterol inhaler. After breathing treatment here she feels improved, wheezes have improved on auscultation and her pulse ox is 94. This is close to her baseline the past. She is not in any distress. Discussed red flags to be seen in the ER, recommended close follow-up with her primary doctor. She is agreeable with plan. COVID test also obtained. Will call on results. - XR CHEST 2V FRONTAL/LAT - COVID WITH FLUA+B, ROUTINE Kendra Gupta PA-C documented in this encounterPremier Health [facility]03-22-2022 History of Present illness Narrative* Leandro Gibbs, - 09/13/2021 3:11 PM EDT Images from the original note were not included. [facility] SECTION OF REGIONAL CARDIOLOGY [facility] OUTPATIENT VISIT DATE September 13, 2021 PRIMARY CARE PHYSICIAN: Nichole Churchill MD [address] [address] HISTORY OF PRESENT ILLNESS: Ms. Jimenez is a 81 year old female. The patient returns for follow-up for history of coronary disease with mild disease remotely as well as hypertension, hyperlipidemia, mild bilateral carotid stenosis and chronic left bundle branch block pattern. She has previous pulmonary embolus. She denies chest discomfort, dyspnea proportion usual, orthopnea, paroxysmal nocturnal dyspnea, palpitations, near-syncope or syncope. PLAN AND RECOMMENDATIONS: The patient remained stable without symptoms that would suggest angina or cardiac decompensation. Heart rate, blood pressure and recent cholesterol profile are favorable. We have therefore made no additions or changes. Dietary and lifestyle modification was reemphasized to facilitate risk factor reduction. We will look forward to reevaluating her in 6 months time. Vitals: BP 120/70 Pulse (!) 47 Ht 154.9 cm (5' 1 ) Wt 70.8 kg (156 lb 1.6 oz) SpO2 94% BMI 29.49 kg/m Physical Exam Vitals reviewed. Constitutional: Appearance: She is well-developed. HENT: Head: Normocephalic and atraumatic. Eyes: Pupils: Pupils are equal, round, and reactive to light. Neck: Thyroid: No thyromegaly. Vascular: No JVD. Cardiovascular: Rate and Rhythm: Normal rate and regular rhythm. Heart sounds: Normal heart sounds. No murmur heard. No friction rub. No gallop. Pulmonary: Effort: Pulmonary effort is normal. No respiratory distress. Breath sounds: Normal breath sounds. No wheezing or rales. Abdominal: General: Bowel sounds are normal. Palpations: Abdomen is soft. Musculoskeletal: General: Normal range of motion. Cervical back: Normal range of motion and neck supple. Skin: General: Skin is warm and dry. Coloration: Skin is not pale. Neurological: Mental Status: She is alert and oriented to person, place, and time. Cranial Nerves: No cranial nerve deficit. Psychiatric: Behavior: Behavior normal. Thought Content: Thought content normal. Judgment: Judgment normal. Review of Systems Constitutional: Negative for activity change and fatigue. HENT: Negative for ear pain and facial swelling. Eyes: Negative for pain and discharge. Respiratory: Positive for shortness of breath. Negative for chest tightness. Cardiovascular: Negative for chest pain, palpitations and leg swelling. Gastrointestinal: Negative for abdominal pain, blood in stool, nausea and vomiting. Endocrine: Negative for cold intolerance and heat intolerance. Genitourinary: Negative for frequency and hematuria. Musculoskeletal: Negative for arthralgias and gait problem. Skin: Negative for color change, pallor and rash. Allergic/Immunologic: Negative for immunocompromised state. Neurological: Negative for dizziness, syncope, light-headedness and headaches. Hematological: Negative for adenopathy. Does not bruise/bleed easily. Psychiatric/Behavioral: Negative for confusion. The patient is not nervous/anxious. 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 PAST SURGICAL HISTORY Procedure Laterality Date COLONOSCOPY FLX DX W/COLLJ SPEC WHEN PFRMD 10/31/05 Colonoscopy [facility] COLONOSCOPY FLX DX W/COLLJ SPEC WHEN PFRMD 10/09/11 repeat 5 years LUNG SURGERY HX Right 2015 removal 2/3 lung METABOLIC EXERCISE STRESS TEST 07/10/01 stress echo PULMONARY FUNCTION TEST 05/13/02 Social History Tobacco Use Smoking status: Former Smoker Quit date: 04/16/2006 Years since quittin.4 Smokeless tobacco: Never Used Substance Use Topics Alcohol use: Not Currently Comment: rarely Drug use: No FAMILY HISTORY Problem Relation Age of Onset Colon Cancer Mother other (ashd [Other]) Father ALLERGIES Allergen Reactions Azithromycin Rash Bees Mosquitos CURRENT MEDICATIONS: icosapent ethyl (VASCEPA ORAL) Take 0.5 capsules by mouth twice daily. Pt taking 2 capsules per day- states Dr wants her to take 4 per daily, but she only takes 2 citalopram (CELEXA) 20 mg tablet Take 10 mg by mouth once daily. lisinopril (ZESTRIL, PRINIVIL) 5 mg tablet Take 1 tablet by mouth once daily. metoprolol tartrate, short acting, (LOPRESSOR) 50 mg tablet Take 0.5 tablets by mouth twice daily. atorvastatin (LIPITOR) 80 mg tablet Take 80 mg by mouth once daily. ASPIRIN 81 MG TAB Take 2 tablets daily nitroglycerin sublingual (NITROSTAT) 0.4 mg SL tablet Dissolve 1 tablet under the tongue every 5 minutes as needed. Leandro Gibbs DO, FACC, FACOI Clinical and Preventive Cardiology Department of Medicine and Division of Cardiology, [facility] Immigration Coordinatormonitor and storage bin tender [facility] Immigration Coordinator of Congestive Heart Failure Clinic [facility] Cardiology Office Immigration Coordinator [facility] Staff Table Worker, Madiha Heller Department of Cardiovascular Medicine/[facility] [place], [facility] Clinical Animal Behaviorist Profressor of Medicine, [facility] Please note: This note has been produced using speech recognition software and may contain errors related to that system including hernando, punctuation, spelling, words, gender and phrases that may be inappropriate. documented in this encounterPremier Health [facility] Center11-06-2019 History of Past illness Narrative* Problem Noted Date Resolved Date Unspecified hypertensive heart disease without h eart failure 04/30/2019 Unspecified cardiovascular disease 04/30/2019 documented as of this encounter (statuses as of 09/13/2021) [facility] of Past illness Narrative* Problem Noted Date Resolved Date Unspecified hypertensive heart disease without h eart failure 04/30/2019 Unspecified cardiovascular disease 04/30/2019 documented as of this encounter (statuses as of 10/25/2021) [facility] History of Past illness Narrative* Problem Noted Date Resolved Date Unspecified hypertensive heart disease without h eart failure 04/30/2019 Unspecified cardiovascular disease 04/30/2019 documented as of this encounter (statuses as of 10/26/2021) [facility] History of Past illness Narrative* Problem Noted Date Resolved Date Unspecified hypertensive heart disease without h eart failure 04/30/2019 Unspecified cardiovascular disease 04/30/2019 documented as of this encounter (statuses as of 03/21/2022) [place] [id number] History of Past illness Narrative* Problem Noted Date Diagnosed Date Resolved Date Unspecified hypertensive hea rt disease without heart failure 04/30/2019 Unspecified cardiovascular disease 04/30/2019 documented as of this encounter (statuses as of 02/16/2023) [facility]11-06-2019 History of Past illness Narrative* Problem Noted Date Diagnosed Date Resolved Date Unspecified hypertensive hea rt disease without heart failure 04/30/2019 Unspecified cardiovascular disease 04/30/2019 documented as of this encounter (statuses as of 04/03/2023) [facility] Diagnosis Coronary artery disease involving mi'kmaq coronary artery of mi'kmaq heart without angina pectoris- Primary Essential hypertension, benign Mixed hyperlipidemia Bilateral carotid artery stenosis Occlusion and stenosis of carotid artery without mention of cerebral infarction LBBB (left bundle branch block) Other left bundle branch block [facility]* Diagnosis Sinobronchitis- Primary Unspecified sinusitis (chronic) documented in this encounter [facility] note* Diagnosis Coronary artery disease involving mi'kmaq coronary artery of mi'kmaq heart without angina pectoris- Primary Essential hypertension, benign Mixed hyperlipidemia LBBB (left bundle branch block) Other left bundle branch block Mitral valve insufficiency, unspecified etiology documented in this encounter [facility] note* Diagnosis Borderline low oxygen saturation level- Primary Abnormal arterial blood gases [facility] Diagnosis Coronary artery disease involving mi'kmaq coronary artery of mi'kmaq heart without angina pectoris- Primary Essential hypertension, benign Mixed hyperlipidemia LBBB (left bundle branch block) Other left bundle branch block SOB (shortness of breath) Shortness of breath Mitral valve insufficiency, unspecified etiology [facility] N[facility] No data available for this section [facility] Reason for referral (narrative)* Outpatient Procedure (Routine) - Closed Specialty Diagnoses / Procedures Referred By Contac t Referred To [facility] Diagnoses Coronary artery disease involving mi'kmaq coronary artery of mi'kmaq heart without angina pectoris Procedures ECG COMPLETE ECG ROUTINE ECG W/LEAST 12 LDS W/I&R Aye Beltran APRN.[facility] [address] [address] [facility] [place] [address] [place] [id number] Referral ID Status Reason Start Date Expiration Date V isits Requested Visits Authorized [id number] Closed Auto-Generate d Referral 03/16/2022 03/16/2023 1 1 [facility] Outpatient Procedure (Routine) - Pending Review Specialty Diagnoses / Procedures Referred By Contac t Referred To [facility] Diagnoses Coronary artery disease involving mi'kmaq coronary artery of mi'kmaq heart without angina pectoris SOB (shortness of breath) Mitral valve insufficiency, unspecified etiology Procedures ECHO ECHO TTHRC R-T 2D W/WOM-MODE COMPL SPEC&COLR Aye Tineo APRN.[facility] [address] [address] [facility] [address] [place] [address] Referral ID Status Reason Start Date Expiration Date Visits Requested Visits Authorized [id number] Pending Review Auto-Generat ed Referral 04/02/2023 04/01/2024 1 1 [facility] Summary Purpose Family History No Family History Records FoundNo Family History Records FoundNo Family History Records FoundNo Family History Records FoundNo Family History Records Found Advance Directives No Advanced Directives Records FoundNo Advanced Directives Records FoundNo Advanced Directives Records FoundNo Advanced Directives Records FoundNo Advanced Directives Records Found Hospital Course Note Send Summary: Discharge [facility] Providers: Provider RoleProvider Name Jhonycandie Pxaton [facility], [facility] Discharge: Summary: Admission Date: .22-Sep-2019 16:33:00 Discharge Date: 27-Sep-2019 Attending Physician at Discharge: Paxton Cody Admission Reason: Shortness of breath and lightheadedness(1) Final Discharge Diagnoses: Saddle PE Procedures: none Condition at Discharge: Satisfactory Disposition at Discharge: .Home Vital Signs: T PRBPSpO2 [id number]% Date/Time09/26 8:4344 8:434 8:4344 8:434/4 8:43 Range(36.3C - 36.6C ) (94 - 108 ) (16 - 20 ) (101 - 114 )/ (68 - 74 ) (95% - 100% ) As of 27-Sep-2019 08:43:00, patient is on 2 L/min of oxygen via nasal cannula. Physical Exam: Eyes: PERRL, EOMI, clear sclera ENMT: mucous membranes moist, adequate dentition Head/Neck: Neck supple, trachea midline, no bruits Respiratory/Thorax: Patent airways, CTAB with diminished bases bilaterally, good chest expansion, tho (more content not included)... Health Concerns Infection Onset Date Last Indicated Resolved Time COVID-19 Rule-Out 10/25/2021 10/25/2021 Infection Onset Date Last Indicated Resolved Time COVID-19 Rule-Out 10/25/2021 10/25/2021 10/26/2021 6:25 AM EDT Additional Source Comments INFORMATION SOURCE (unrecogn ized section and content) DATE CREATED AUTHOR AUTHOR'S ORGANIZ ATION 12/18/2017 [facility] DATE CREATED AUTHOR AUTHOR'S ORGANIZ ATION 11/21/2019 [facility] DATE CREATED AUTHOR AUTHOR'S ORGANIZ ATION 01/03/2023 [facility] DATE CREATED AUTHOR AUTHOR'S ORGANIZ ATION 04/07/2023 [facility] Source Comments (unrecognize d section and content) In the event this informatio n is protected by the Federal Confidentiality of Alcohol and Drug Abuse Patient Records regulations: The Federal rules restrict any use of the information to criminally investigate or prosecute any alcohol or drug abuse patient.[facility] the event this information is protected by the Federal Confidentiality of Alcohol and Drug Abuse Patient Records regulations: The Federal rules restrict any use of the information to criminally investigate or prosecute any alcohol or drug abuse patient.[facility] the event this information is protected by the Federal Confidentiality of Alcohol and Drug Abuse Patient Records regulations: The Federal rules restrict any use of the information to criminally investigate or prosecute any alcohol or drug abuse patient.[facility] the event this information is protected by the Federal Confidentiality of Alcohol and Drug Abuse Patient Records regulations: The Federal rules restrict any use of the information to criminally investigate or prosecute any alcohol or drug abuse patient.[facility] Center[facility] the event this information is protected by the Federal Confidentiality of Alcohol and Drug Abuse Patient Records regulations: The Federal rules restrict any use of the information to criminally investigate or prosecute any alcohol or drug abuse patient.[facility] Center[facility] the event this information is protected by the Federal Confidentiality of Alcohol and Drug Abuse Patient Records regulations: The Federal rules restrict any use of the information to criminally investigate or prosecute any alcohol or drug abuse patient.[facility] Reason for Visit (unrecogniz ed section and content) Reason Comments Chest Congestion ST, cough x3 weeks Reason Comments Results Reason Comments Cardiology Follow Up Reason Comments Cough Chest congestion, pam dyaches, fever, chills x1 week Reason Comments CARD Follow Up 6 Month No new cardiac co ncerns. Recovering from pneumonia Care Teams (unrecognized sec tion and content) Special Effects Technician Relationship Specialty Start Date End Date Nichole Churchill [facility] [address] [place] [address] PCP - General 11/02/08 Special Effects Technician Relationship Specialty Start Date End Date Nichole Churchill [facility] [address] [place] [address] PCP - General 11/02/08 Special Effects Technician Relationship Specialty Start Date End Date Nichole Churchill [facility] [address] [place] [address] PCP - General 11/02/08 Special Effects Technician Relationship Specialty Start Date End Date Kerline Nichole Soto [address] [place] [address] PCP - General 11/02/08 Special Effects Technician Relationship Specialty Start Date End Date Kerline Nichole Valera [address] [place] [address] PCP - General 11/02/08 FOR RECORDS PERTAINING TO PATIENTS WHO ARE OR HAVE BEEN ENROLLED IN A CHEMICAL DEPENDENCY/SUBSTANCEABUSE PROGRAM, SOME INFORMATION MAY BE OMITTED. This clinical summary was aggregated from multiple sources. Caution should be exercised in using it in the provision of clinical care. This summary normalizes information from multiple sources, and as a consequence, information in this document may materially change the coding, format and clinical context of patient data. In addition, data may be omitted in some cases. CLINICAL DECISIONS SHOULD BE BASED ON THE PRIMARY CLINICAL RECORDS. [facility] provides no warranty or guarantee of the accuracy or completeness of information in this document.
== END | disposition home or self-care (01) ==
PROVIDERS: PCP Family Medicine Geriatric Medicine; Visit Provider Urology
DX: R31.0 Gross hematuria (principal)
CPT/HCPCS: 88108; 88313

== ENCOUNTER → 2023-10-10 | Outpatient (CLI) | payer MEDICARE, OTHER, SELFPAY ==
--- NOTE | 2023-10-10 12:50 | RAD_ITS ---
STUDY: X-RAY CHEST REASON FOR EXAM: Female, 83 years old. WHEEZING TECHNIQUE: PA and lateral views of the chest. COMPARISON: None. FINDINGS: There is hyperinflation of the lungs consistent with chronic obstructive lung disease (COPD). Elevated right hemidiaphragm possibly from prior partial lung resection.. Normal size heart. Normal mediastinum and robby. Normal visualized pulmonary arteries. Normal visualized aortic arch and descending thoracic aorta. Normal visualized thoracic spine. Normal visualized ribs, clavicles, and shoulders. There is no demonstrated abnormality of the visualized soft tissue structures of the upper abdomen. RAD/Chest PA and Lateral IMPRESSION: Emphysema without pneumonia or atelectasis. Electronically Signed: Elian Nevarez MD at 23:13 EDT ,
== END | disposition home or self-care (01) ==
PROVIDERS: PCP Family Medicine Geriatric Medicine; Referring Provider Family Medicine Geriatric Medicine; Visit Provider Family Medicine Geriatric Medicine
DX: R06.2 Wheezing (principal); R05.9 Cough, unspecified; R68.83 Chills (without fever)
CPT/HCPCS: 71046; 87631

== ENCOUNTER → 2023-11-29 | Outpatient (CLI) | payer MEDICARE, OTHER, SELFPAY ==
[2023-11-29 15:30] LABS: Absolute Lymphocyte Count 1.36 X10^3/uL (0.83-4.51); Absolute Neutrophil Count 4.2 X10^3/uL (2.0-7.7); Basophil# 0.02 X10^3/uL; Basophil% 0.3 % (0-1); Eosinophil# 0.15 X10^3/uL; Eosinophils% 2.4 % (0-5); Hematocrit 43.5 % (37-47); Hemoglobin 13.9 g/dL (12.0-15.0); Lymphocyte # 1.36 X10^3/ul (0.83-4.51); Lymphocyte % 21.7 % (19-41); Mean Corpuscular Volume 87.7 fL (81-99); Mean Platelet Vol. 9.6 fl (6.2-12.0); Monocyte# 0.56 X10^3/uL; Monocyte% 8.9 % (0-10); NRBC Flagged by Analyzer 0 % (0-5); Neutrophil # 4.17 X10^3/uL (2.7-7.7); Neutrophil % 66.4 % (47-70); Platelet Count 240 K/mm3 (150-450); RBC Distribution Width CV 13.9 % (11.6-14.6); RBC Distribution Width SD 44.9 fl (35.1-43.9); Red Blood Count 4.96 M/mm3 (4.2-5.4); White Blood Count 6.3 K/mm3 (4.4-11.0)
[2023-11-29 16:00] LABS: Vitamin D,25 Hydroxy 28.7 ng/mL
[2023-11-29 16:26] LABS: ALB/GLOB Ratio 0.9 RATIO (0.9-2.4); AST(SGOT) 23 U/L (15-37); Alanine Aminotransfer ALT/SGPT 18 U/L (13-56); Albumin, Serum 3.3 g/dL (3.2-5.0); Alkaline Phosphatase 142 U/L (45-117); Anion Gap 4 (5-15); BUN 15 mg/dL (7-18); BUN/Creat Ratio 17.4 RATIO (10-20); Calcium,Total 9.1 mg/dL (8.5-10.1); Chloride 106 mmol/L (98-107); Creatinine, Serum 0.86 mg/dL (0.55-1.02); EST Glomerular Filtration Rate 67 mL/min (>60); Est Glom Filt Rate - Afr Amer 81 mL/min (>60); Globulin 3.5 g/dL (2.2-4.2); Glucose 93 mg/dL (74-106); Potassium 4.2 mmol/L (3.5-5.1); Protein, Total 6.8 g/dL (6.4-8.2); Sodium Level 141 mmol/L (136-145); Thyroid Stim Hormone (TSH) 2.02 uIU/mL (0.358-3.74)
== END | disposition home or self-care (01) ==
LOC: LAB 13:46
PROVIDERS: PCP Family Medicine Geriatric Medicine; Referring Provider Family Medicine Geriatric Medicine; Visit Provider Family Medicine Geriatric Medicine
DX: I10 Essential (primary) hypertension (principal); E55.9 Vitamin D deficiency, unspecified
CPT/HCPCS: 36415; 80053; 82306; 84443; 85025

== ENCOUNTER → 2024-06-04 | Outpatient (CLI) | payer MEDICARE, OTHER, SELFPAY ==
[2024-06-04 13:16] LABS: Absolute Neutrophil Count 4.2 X10^3/uL (2.0-7.7); Basophil# 0.03 X10^3/uL; Basophil% 0.5 % (0-1); Eosinophil# 0.17 X10^3/uL; Eosinophils% 2.6 % (0-5); Hematocrit 41.7 % (37-47); Hemoglobin 13.9 g/dL (12.0-15.0); Lymphocyte % 24.9 % (19-41); Mean Corp Hgb Conc 33.3 g/dL (32-36); Mean Corpuscular Hgb 28.1 pg (27.0-32.0); Mean Corpuscular Volume 84.4 fL (81-99); Mean Platelet Vol. 8.8 fl (6.2-12.0); Monocyte# 0.44 X10^3/uL; Monocyte% 6.9 % (0-10); NRBC Flagged by Analyzer 0 % (0-5); Neutrophil # 4.15 X10^3/uL (2.7-7.7); Neutrophil % 64.6 % (47-70); Platelet Count 233 K/mm3 (150-450); RBC Distribution Width CV 14.8 % (11.6-14.6); RBC Distribution Width SD 45.1 fl (35.1-43.9); Red Blood Count 4.94 M/mm3 (4.2-5.4); White Blood Count 6.4 K/mm3 (4.4-11.0)
[2024-06-04 13:58] LABS: ALB/GLOB Ratio 0.8 RATIO (0.9-2.4); AST(SGOT) 17 U/L (15-37); Alanine Aminotransfer ALT/SGPT 14 U/L (13-56); Albumin, Serum 3.3 g/dL (3.2-5.0); Alkaline Phosphatase 110 U/L (45-117); Anion Gap 4 (5-15); BUN 15 mg/dL (7-18); BUN/Creat Ratio 18.4 RATIO (10-20); Calcium,Total 9.2 mg/dL (8.5-10.1); Chloride 109 mmol/L (98-107); Creatinine, Serum 0.82 mg/dL (0.55-1.02); EST Glomerular Filtration Rate 71 mL/min (>60); Est Glom Filt Rate - Afr Amer 86 mL/min (>60); Globulin 3.9 g/dL (2.2-4.2); Glucose 108 mg/dL (74-106); Potassium 3.3 mmol/L (3.5-5.1); Protein, Total 7.2 g/dL (6.4-8.2); Sodium Level 143 mmol/L (136-145)
[2024-06-04 14:05] LABS: Vitamin D,25 Hydroxy 25.5 ng/mL
== END | disposition home or self-care (01) ==
LOC: POLAB3 13:03
PROVIDERS: PCP Family Medicine Geriatric Medicine; Visit Provider Family Medicine Geriatric Medicine
DX: I10 Essential (primary) hypertension (principal); E55.9 Vitamin D deficiency, unspecified
CPT/HCPCS: 36415; 80053; 82306; 84443; 85025

== ENCOUNTER → 2024-06-16 | Outpatient (CLI) | payer MEDICARE, OTHER, SELFPAY ==
[2024-06-16 16:08] LABS: Anion Gap 4 (5-15); BUN 15 mg/dL (7-18); BUN/Creat Ratio 13.5 RATIO (10-20); Calcium,Total 9.6 mg/dL (8.5-10.1); Chloride 109 mmol/L (98-107); Creatinine, Serum 1.11 mg/dL (0.55-1.02); EST Glomerular Filtration Rate 50 mL/min (>60); Est Glom Filt Rate - Afr Amer 60 mL/min (>60); Glucose 106 mg/dL (74-106); Potassium 4.1 mmol/L (3.5-5.1); Sodium Level 141 mmol/L (136-145)
== END | disposition home or self-care (01) ==
LOC: LAB 15:13
PROVIDERS: PCP Family Medicine Geriatric Medicine; Referring Provider Family Medicine Geriatric Medicine; Visit Provider Family Medicine Geriatric Medicine
DX: I10 Essential (primary) hypertension (principal)
CPT/HCPCS: 36415; 80048

== ENCOUNTER → 2024-12-02 | Outpatient (CLI) | payer MEDICARE, OTHER, SELFPAY ==
[2024-12-02 15:37] LABS: Absolute Lymphocyte Count 1.83 X10^3/uL (0.83-4.51); Absolute Neutrophil Count 4.5 X10^3/uL (2.0-7.7); Basophil# 0.02 X10^3/uL; Basophil% 0.3 % (0-1); Eosinophil# 0.14 X10^3/uL; Hematocrit 39.3 % (37-47); Hemoglobin 12.9 g/dL (12.0-15.0); Lymphocyte # 1.83 X10^3/ul (0.83-4.51); Mean Corp Hgb Conc 32.8 g/dL (32-36); Mean Corpuscular Hgb 28.4 pg (27.0-32.0); Mean Corpuscular Volume 86.6 fL (81-99); Mean Platelet Vol. 9.5 fl (6.2-12.0); Monocyte# 0.52 X10^3/uL; Monocyte% 7.4 % (0-10); NRBC Flagged by Analyzer 0 % (0-5); Neutrophil # 4.51 X10^3/uL (2.7-7.7); Neutrophil % 64.2 % (47-70); Platelet Count 226 K/mm3 (150-450); RBC Distribution Width CV 14.6 % (11.6-14.6); RBC Distribution Width SD 46.8 fl (35.1-43.9); Red Blood Count 4.54 M/mm3 (4.2-5.4)
[2024-12-02 16:41] LABS: ALB/GLOB Ratio 1.3 RATIO (0.9-2.4); AST(SGOT) 21 U/L (<=31); Alanine Aminotransfer ALT/SGPT 11 U/L (<=34); Albumin, Serum 3.7 g/dL (3.4-4.8); Alkaline Phosphatase 92 U/L (35-104); Anion Gap 10 (5-15); BUN 16 mg/dL (4-19); BUN/Creat Ratio 15.8 RATIO (10-20); Calcium,Total 9.2 mg/dL (7.6-11.0); Carbon Dioxide 27.2 mmol/L (21.0-32.0); Chloride 105 mmol/L (98-108); EST Glomerular Filtration Rate 56 (>60); Globulin 2.9 g/dL (2.2-4.2); Glucose 96 mg/dL (70-99); Potassium 3.4 mmol/L (3.3-5.1); Protein, Total 6.6 g/dL (5.9-8.4); Sodium Level 142 mmol/L (133-145); Total Bilirubin 1.27 mg/dL (0.00-1.30); Vitamin D,25 Hydroxy 30.5 ng/mL (30-100)
== END | disposition home or self-care (01) ==
LOC: LAB 14:09
PROVIDERS: PCP Family Medicine Geriatric Medicine; Referring Provider Family Medicine Geriatric Medicine; Visit Provider Family Medicine Geriatric Medicine
DX: I10 Essential (primary) hypertension (principal); E55.9 Vitamin D deficiency, unspecified
CPT/HCPCS: 36415; 80053; 82306; 84443; 85025

== ENCOUNTER → 2025-03-04 | Outpatient (CLI) | payer MEDICARE, OTHER, SELFPAY | END | disposition home or self-care (01) | LOC: POLAB3 16:50 | PROVIDERS: PCP Family Medicine Geriatric Medicine; Visit Provider Family Medicine Geriatric Medicine | DX: J98.8 Other specified respiratory disorders (principal); R06.2 Wheezing; R50.9 Fever, unspecified | CPT/HCPCS: 87631 ==

== ENCOUNTER → 2025-06-10 | Outpatient (CLI) | payer MEDICARE, OTHER, SELFPAY ==
[2025-06-10 13:15] LABS: Hematocrit 42.9 % (37-47); Hemoglobin 14.1 g/dL (12.0-15.0); Immature Granulocytes Count 0.010 X10^3/uL (0.0-0.0); Mean Corp Hgb Conc 32.9 g/dL (32-36); Mean Corpuscular Volume 87.0 fL (81-99); Mean Platelet Vol. 9.2 fl (6.2-12.0); NRBC Flagged by Analyzer 0 % (0-5); Platelet Count 233 K/mm3 (150-450); RBC Distribution Width CV 14.1 % (11.6-14.6); RBC Distribution Width SD 44.8 fl (35.1-43.9); Red Blood Count 4.93 M/mm3 (4.2-5.4); White Blood Count 6.2 K/mm3 (4.4-11.0)
[2025-06-10 14:01] LABS: Vitamin D,25 Hydroxy 19.8 ng/mL (30-100)
[2025-06-10 14:04] LABS: AST(SGOT) 17 U/L (<=31); Alanine Aminotransfer ALT/SGPT < 5 U/L (<=34); Albumin, Serum 3.8 g/dL (3.4-4.8); Alkaline Phosphatase 104 U/L (35-104); Anion Gap 7 (5-15); BUN 18 mg/dL (4-19); BUN/Creat Ratio 20.3 RATIO (10-20); Calcium,Total 9.0 mg/dL (7.6-11.0); Carbon Dioxide 29.2 mmol/L (21.0-32.0); Chloride 105 mmol/L (98-108); Globulin 3.0 g/dL (2.2-4.2); Glucose 92 mg/dL (70-99); Potassium 4.3 mmol/L (3.3-5.1)
[2025-06-10 21:04] LABS: Xtra Tube Kwok EXTRA TUBE
== END | disposition home or self-care (01) ==
LOC: LAB.FUTURE 13:01
PROVIDERS: PCP Family Medicine Geriatric Medicine; Visit Provider Family Medicine Geriatric Medicine
DX: I10 Essential (primary) hypertension (principal); E55.9 Vitamin D deficiency, unspecified
CPT/HCPCS: 36415; 80053; 82306; 84443; 85025